=== PATIENT | male | born 1955 | race Caucasian/White ===

== ENCOUNTER 2020-02-11 08:17 | Outpatient (REF) | payer OTHER, SELFPAY ==
[2020-02-11 10:04] LABS: MANUAL DIFF FLAG NO
[2020-02-11 10:22] LABS: Basophils Absolute Auto 0.1 X10*3/uL (0.0-0.2); Basophils Percent Auto 1.1 % (0-2); Eosinophils Absolute Auto 0.2 X10*3/uL (0.0-0.4); Hematocrit 47.5 % (42-52); Hemoglobin 15.6 g/dl (14.0-18.0); Imm Gran Abs Auto 0.01 X10*3/uL (0.00-0.03); Imm Gran Pct Auto 0.2 % (0.0-0.4); Lymphocytes Absolute Auto 1.9 X10*3/uL (1.2-4.9); Lymphocytes Percent Auto 36.8 % (20-40); Mean Corpuscular HGB Conc 32.8 g/dl (31.0-36.0); Mean Corpuscular Hemoglobin 30.3 pg (27.0-33.0); Mean Corpuscular Volume 92.2 fL (80-98); Mean Platelet Volume 10.2 fL (9.4-12.4); Monocytes Absolute Auto 0.6 X10*3/uL (0.1-1.2); Monocytes Percent Auto 10.7 % (2-11); Neutrophils Absolute Auto 2.5 X10*3/uL (2.0-8.3); Neutrophils Percent Auto 47.2 % (45-73); Platelet Count 203 X10*3/uL (160-400); Red Blood Count 5.15 X10*6/uL (4.60-5.80); White Blood Count 5.3 X10*3/uL (4.8-10.8)
[2020-02-11 10:42] LABS: Alanine Aminotransferase 15 U/L (0-40); Albumin Level 4.4 g/dL (3.5-5.0); Alkaline Phosphatase 67 U/L (39-117); Anion Gap 10 (12-20); Aspartate Amino Transferase 20 U/L (5-37); Bilirubin Total 0.7 mg/dL (0.0-1.0); Blood Urea Nitrogen 12 mg/dL (9-16); Carbon Dioxide 32 mmol/L (22-29); Chloride 105 mmol/L (96-108); Cholesterol 125 mg/dL; Estimated Glomerular Filt Rate > 60; Glucose Fasting 92 mg/dL (60-99); HDL Cholesterol 32 mg/dL; LDL Cholesterol Calculated 72 mg/dl; Potassium 4.9 mmol/l (3.3-5.1); Sodium 142 mmol/L (135-145); Total Protein 7.4 g/dL (6.5-8.0); Triglycerides 107 mg/dL
[2020-02-11 10:45] LABS: Calcium 9.3 mg/dL (8.4-10.2)
[2020-02-11 11:06] LABS: TSH reflex Free T4 0.82 mIU/mL (0.32-4.0); Vitamin D 25-OH Total 36.6 ng/mL (>30)
== END 2020-02-11 08:18 | disposition home or self-care (01) ==
LOC: HO.LAB 08:17
PROVIDERS: PCP Internal Medicine; Visit Provider Internal Medicine
DX: K21.9 Gastro-esophageal reflux disease without esophagitis (principal); E78.2 Mixed hyperlipidemia; R73.01 Impaired fasting glucose; M51.36 Other intervertebral disc degeneration, lumbar region; E55.9 Vitamin D deficiency, unspecified; E66.9 Obesity, unspecified
CPT/HCPCS: 36415; 80053; 80061; 82306; 84443; 85025

== ENCOUNTER 2020-07-25 10:02 | Outpatient (REF) | payer MEDICARE, SELFPAY ==
[2020-07-25 11:19] LABS: MANUAL DIFF FLAG NO
[2020-07-25 11:38] LABS: Basophils Percent Auto 0.8 % (0-2); Eosinophils Absolute Auto 0.2 X10*3/uL (0.0-0.4); Eosinophils Percent Auto 3.7 % (0-4); Hematocrit 46.4 % (42-52); Hemoglobin 15.4 g/dl (14.0-18.0); Imm Gran Abs Auto 0.01 X10*3/uL (0.00-0.03); Imm Gran Pct Auto 0.2 % (0.0-0.4); Lymphocytes Absolute Auto 1.4 X10*3/uL (1.2-4.9); Lymphocytes Percent Auto 29.9 % (20-40); Mean Corpuscular HGB Conc 33.2 g/dl (31.0-36.0); Mean Corpuscular Hemoglobin 30.4 pg (27.0-33.0); Mean Corpuscular Volume 91.7 fL (80-98); Mean Platelet Volume 10.1 fL (9.4-12.4); Monocytes Absolute Auto 0.5 X10*3/uL (0.1-1.2); Monocytes Percent Auto 10.2 % (2-11); Neutrophils Absolute Auto 2.7 X10*3/uL (2.0-8.3); Neutrophils Percent Auto 55.2 % (45-73); Platelet Count 190 X10*3/uL (160-400); Red Blood Count 5.06 X10*6/uL (4.60-5.80); Red Cell Distribution Width 12.2 % (11.0-16.0); White Blood Count 4.8 X10*3/uL (4.8-10.8)
[2020-07-25 12:16] LABS: Alanine Aminotransferase 18 U/L (0-40); Albumin Level 4.5 g/dL (3.5-5.0); Alkaline Phosphatase 69 U/L (39-117); Anion Gap 10 (12-20); Aspartate Amino Transferase 24 U/L (5-37); Bilirubin Total 0.6 mg/dL (0.0-1.0); Blood Urea Nitrogen 11 mg/dL (9-16); Calcium 9.2 mg/dL (8.4-10.2); Carbon Dioxide 33 mmol/L (22-29); Chloride 103 mmol/L (96-108); Cholesterol 133 mg/dL; Estimated Glomerular Filt Rate > 60; Glucose Fasting 95 mg/dL (60-99); HDL Cholesterol 35 mg/dL; LDL Cholesterol Calculated 73 mg/dl; Potassium 4.4 mmol/L (3.3-5.1); Sodium 142 mmol/L (135-145); TSH reflex Free T4 0.97 uIU/mL (0.32-4.0); Total Protein 7.8 g/dL (6.5-8.0); Triglycerides 129 mg/dL
[2020-07-25 12:29] LABS: Erythrocyte Sedimentation Rate 2 MM/HR (0-15)
== END 2020-07-25 10:03 | disposition home or self-care (01) ==
LOC: HO.HMGCLDS 10:02
PROVIDERS: PCP Internal Medicine; Visit Provider Internal Medicine
DX: K21.9 Gastro-esophageal reflux disease without esophagitis (principal); M51.36 Other intervertebral disc degeneration, lumbar region; E78.2 Mixed hyperlipidemia; R73.01 Impaired fasting glucose; M50.30 Other cervical disc degeneration, unspecified cervical region; E66.9 Obesity, unspecified
CPT/HCPCS: 36415; 80053; 80061; 84443; 85025; 85652

== ENCOUNTER 2020-07-30 12:14 | Outpatient (REF) | payer MEDICARE, SELFPAY ==
--- NOTE | ~2020-07-30 | XR_ITS ---
EXAMINATION: XR ABDOMEN WITH DECUBITUS VIEWS CLINICAL INDICATION: Constipation COMPARISON: CT 07/09/2019 TECHNIQUE: PA view of the chest. 2 views of the abdomen. FINDINGS: The lungs are well expanded. There is no focal consolidation, edema, or effusion. No pneumothorax. The cardiomediastinal silhouette is within normal limits. No acute osseous abnormality. Nonobstructive bowel gas pattern. No dilated loops of bowel. Gas and stool throughout the colon. No free air on the upright view. No air-fluid levels. Mild degenerative changes of the spine. No suspicious calcifications. XR/XR abdomen w decubitus IMPRESSION: Normal bowel gas pattern. No abnormal stool burden. Clear lungs.
== END 2020-07-30 12:15 | disposition home or self-care (01) ==
LOC: HO.XRAY 12:14
PROVIDERS: PCP Internal Medicine; Visit Provider Internal Medicine
DX: K59.00 Constipation, unspecified (principal); R14.0 Abdominal distension (gaseous)
CPT/HCPCS: 74021

== ENCOUNTER 2020-10-17 10:44 | Outpatient (REF) | payer MEDICARE, SELFPAY ==
[2020-10-17 13:53] LABS: Glucose Urine UA NEG (NEG); Leukocyte Esterase Urine NEG (NEG); Nitrite Urine NEG (NEG); PH 5.5 (5.0-8.0); Specific Gravity - Urine >= 1.030 (1.005-1.025); Urine Blood NEG (NEG); Urine Ketones NEG (NEG); Urine Protein NEG (NEG-TRACE)
[2020-10-17 13:54] LABS: Appearance Urine TURBID; Color Urine YELLOW
[2020-10-17 14:00] LABS: MANUAL DIFF FLAG NO
[2020-10-17 14:12] LABS: Basophils Percent Auto 0.7 % (0-2); Eosinophils Absolute Auto 0.2 X10*3/uL (0.0-0.4); Eosinophils Percent Auto 4.2 % (0-4); Hematocrit 47.1 % (42-52); Hemoglobin 15.7 g/dl (14.0-18.0); Imm Gran Abs Auto 0.01 X10*3/uL (0.00-0.03); Imm Gran Pct Auto 0.2 % (0.0-0.4); Lymphocytes Absolute Auto 1.5 X10*3/uL (1.2-4.9); Mean Corpuscular HGB Conc 33.3 g/dl (31.0-36.0); Mean Corpuscular Hemoglobin 30.4 pg (27.0-33.0); Mean Corpuscular Volume 91.3 fL (80-98); Mean Platelet Volume 10.2 fL (9.4-12.4); Monocytes Absolute Auto 0.5 X10*3/uL (0.1-1.2); Monocytes Percent Auto 10.6 % (2-11); Neutrophils Absolute Auto 2.3 X10*3/uL (2.0-8.3); Neutrophils Percent Auto 51.3 % (45-73); Platelet Count 199 X10*3/uL (160-400); Red Blood Count 5.16 X10*6/uL (4.60-5.80); Red Cell Distribution Width 11.9 % (11.0-16.0); White Blood Count 4.5 X10*3/uL (4.8-10.8)
[2020-10-17 14:22] LABS: Estimated Average Glucose 114 mg/dL; Hemoglobin A1C 151.1638 umol/L; Hemoglobin A1c % 5.6 %
[2020-10-17 14:29] LABS: Alanine Aminotransferase 16 U/L (0-40); Albumin Level 4.5 g/dL (3.5-5.0); Alkaline Phosphatase 72 U/L (39-117); Anion Gap 12 (12-20); Aspartate Amino Transferase 22 U/L (5-37); Bilirubin Total 0.7 mg/dL (0.0-1.0); Blood Urea Nitrogen 15 mg/dL (9-16); Calcium 9.4 mg/dL (8.4-10.2); Carbon Dioxide 28 mmol/L (22-29); Chloride 106 mmol/L (96-108); Cholesterol 130 mg/dL; Estimated Glomerular Filt Rate > 60; Glucose Fasting 94 mg/dL (60-99); HDL Cholesterol 37 mg/dL; LDL Cholesterol Calculated 74 mg/dl; Potassium 4.3 mmol/L (3.3-5.1); Sodium 142 mmol/L (135-145); Total Protein 7.7 g/dL (6.5-8.0); Triglycerides 96 mg/dL
[2020-10-17 14:52] LABS: TSH reflex Free T4 0.61 uIU/mL (0.32-4.0); Vitamin D 25-OH Total 30.4 ng/mL (>30)
== END 2020-10-17 10:45 | disposition home or self-care (01) ==
LOC: HO.HMGCLDS 10:44
PROVIDERS: PCP Internal Medicine; Visit Provider Internal Medicine
DX: R73.01 Impaired fasting glucose (principal); I10 Essential (primary) hypertension; K21.9 Gastro-esophageal reflux disease without esophagitis; K59.00 Constipation, unspecified; E66.9 Obesity, unspecified; E78.2 Mixed hyperlipidemia; R35.0 Frequency of micturition; E55.9 Vitamin D deficiency, unspecified
CPT/HCPCS: 36415; 80053; 80061; 81003; 82306; 83036; 84443; 85025

== ENCOUNTER → 2020-11-25 14:28 | Outpatient (BNVA) | payer OTHER, SELFPAY | PROVIDERS: PCP Internal Medicine; Visit Provider Urology | DX: R10.31 Right lower quadrant pain (principal) | CPT/HCPCS: 99202 ==

== ENCOUNTER → 2020-11-26 11:33 | Outpatient (BNVA) | payer MEDICARE, SELFPAY | PROVIDERS: PCP Internal Medicine; Visit Provider Urology | DX: R10.31 Right lower quadrant pain (principal) | CPT/HCPCS: 99212 ==

== ENCOUNTER → 2020-12-10 13:10 | Outpatient (BNVA) | payer MEDICARE, SELFPAY | PROVIDERS: PCP Internal Medicine; Visit Provider Urology | DX: R10.32 Left lower quadrant pain (principal); R35.0 Frequency of micturition; E55.9 Vitamin D deficiency, unspecified; R73.01 Impaired fasting glucose; Z87.891 Personal history of nicotine dependence | CPT/HCPCS: 51798; 99212 ==

== ENCOUNTER 2021-01-30 09:28 | Outpatient (REF) | payer MEDICARE, SELFPAY ==
[2021-01-30 09:50] LABS: MANUAL DIFF FLAG NO
[2021-01-30 10:50] LABS: Basophils Percent Auto 0.9 % (0-2); Eosinophils Absolute Auto 0.2 X10*3/uL (0.0-0.4); Eosinophils Percent Auto 3.8 % (0-4); Hematocrit 46.8 % (42-52); Hemoglobin 15.5 g/dl (14.0-18.0); Imm Gran Abs Auto 0.01 X10*3/uL (0.00-0.03); Imm Gran Pct Auto 0.2 % (0.0-0.4); Lymphocytes Absolute Auto 1.5 X10*3/uL (1.2-4.9); Lymphocytes Percent Auto 32.1 % (20-40); Mean Corpuscular HGB Conc 33.1 g/dl (31.0-36.0); Mean Corpuscular Hemoglobin 30.3 pg (27.0-33.0); Mean Corpuscular Volume 91.4 fL (80-98); Mean Platelet Volume 9.9 fL (9.4-12.4); Monocytes Absolute Auto 0.5 X10*3/uL (0.1-1.2); Monocytes Percent Auto 11.1 % (2-11); Neutrophils Absolute Auto 2.4 X10*3/uL (2.0-8.3); Neutrophils Percent Auto 51.9 % (45-73); Platelet Count 195 X10*3/uL (160-400); Red Blood Count 5.12 X10*6/uL (4.60-5.80); Red Cell Distribution Width 11.9 % (11.0-16.0); White Blood Count 4.5 X10*3/uL (4.8-10.8)
[2021-01-30 11:04] LABS: Estimated Average Glucose 117 mg/dL; Hemoglobin A1c % 5.7 %
[2021-01-30 11:17] LABS: Alanine Aminotransferase 16 U/L (0-40); Albumin Level 4.3 g/dL (3.5-5.0); Alkaline Phosphatase 63 U/L (39-117); Anion Gap 11 (12-20); Aspartate Amino Transferase 24 U/L (5-37); Bilirubin Total 0.9 mg/dL (0.0-1.0); Blood Urea Nitrogen 8 mg/dL (9-16); Calcium 9.9 mg/dL (8.4-10.2); Carbon Dioxide 32 mmol/L (22-29); Chloride 105 mmol/L (96-108); Cholesterol 125 mg/dL; Estimated Glomerular Filt Rate > 60; Glucose Fasting 100 mg/dL (60-99); HDL Cholesterol 31 mg/dL; LDL Cholesterol Calculated 68 mg/dl; Potassium 4.9 mmol/L (3.3-5.1); Sodium 143 mmol/L (135-145); Total Protein 7.4 g/dL (6.5-8.0); Triglycerides 131 mg/dL
== END 2021-01-30 09:29 | disposition home or self-care (01) ==
LOC: HO.LAB 09:28
PROVIDERS: PCP Internal Medicine; Visit Provider Internal Medicine
DX: Z00.00 Encounter for general adult medical examination without abnormal findings (principal); R73.01 Impaired fasting glucose; K21.9 Gastro-esophageal reflux disease without esophagitis; E78.2 Mixed hyperlipidemia
CPT/HCPCS: 36415; 80053; 80061; 83036; 85025

== ENCOUNTER 2021-02-06 09:52 | Outpatient (REF) | payer OTHER, SELFPAY ==
[2021-02-06 12:29] LABS: Amphetamine Screen Urine Not Detected (Not Detect); Barbiturates, Urine Not Detected (Not Detect); Benzodiazepines Screen Urine Not Detected (Not Detect); Cannabinoid Screen Urine Not Detected (Not Detect); Cocaine Screen Urine Not Detected (Not Detect); Fentanyl, urine Not Detected (Not Detect); Opiate Screen Urine POSITIVE (Not Detect); Phencyclidine Screen Urine Not Detected (Not Detect)
== END 2021-02-06 09:53 | disposition home or self-care (01) ==
LOC: HO.LAB 09:52
PROVIDERS: PCP Internal Medicine; Visit Provider Internal Medicine
DX: F11.90 Opioid use, unspecified, uncomplicated (principal); Z79.899 Other long term (current) drug therapy
CPT/HCPCS: 80307

== ENCOUNTER 2021-05-06 08:03 | Outpatient (REF) | payer OTHER, SELFPAY ==
[2021-05-06 08:24] LABS: MANUAL DIFF FLAG NO
[2021-05-06 08:49] LABS: Basophils Percent Auto 0.6 % (0-2); Eosinophils Absolute Auto 0.2 X10*3/uL (0.0-0.4); Eosinophils Percent Auto 3.9 % (0-4); Hematocrit 46.7 % (42.0-52.0); Hemoglobin 15.5 g/dl (14.0-18.0); Imm Gran Abs Auto 0.01 X10*3/uL (0.00-0.03); Imm Gran Pct Auto 0.2 % (0.0-0.4); Lymphocytes Absolute Auto 1.7 X10*3/uL (1.2-4.9); Lymphocytes Percent Auto 33.1 % (20-40); Mean Corpuscular HGB Conc 33.2 g/dl (31.0-36.0); Mean Corpuscular Hemoglobin 30.3 pg (27.0-33.0); Mean Corpuscular Volume 91.2 fL (80.0-98.0); Mean Platelet Volume 9.7 fL (9.4-12.4); Monocytes Absolute Auto 0.5 X10*3/uL (0.1-1.2); Monocytes Percent Auto 10.5 % (2-11); Neutrophils Absolute Auto 2.6 x10*3/uL (2.0-8.3); Neutrophils Percent Auto 51.7 % (45-73); Platelet Count 190 X10*3/uL (160-400); Red Blood Count 5.12 X10*6/uL (4.60-5.80); Red Cell Distribution Width 11.9 % (11.0-16.0); White Blood Count 5.1 X10*3/uL (4.8-10.8)
[2021-05-06 09:03] LABS: Estimated Average Glucose 117 mg/dL; Hemoglobin A1c % 5.7 %
[2021-05-06 09:27] LABS: Alanine Aminotransferase 17 U/L (0-40); Albumin Level 4.3 g/dL (3.5-5.0); Alkaline Phosphatase 63 U/L (39-117); Anion Gap 9 (12-20); Aspartate Amino Transferase 20 U/L (5-37); Bilirubin Total 0.9 mg/dL (0.0-1.0); Blood Urea Nitrogen 10 mg/dL (9-16); Calcium 9.6 mg/dL (8.4-10.2); Carbon Dioxide 32 mmol/L (22-29); Chloride 107 mmol/L (96-108); Cholesterol 118 mg/dL; Estimated Glomerular Filt Rate > 60; Glucose Fasting 100 mg/dL (60-99); HDL Cholesterol 35 mg/dL; LDL Cholesterol Calculated 65 mg/dl; Potassium 4.4 mmol/L (3.3-5.1); Sodium 144 mmol/L (135-145); Total Protein 7.5 g/dL (6.5-8.0); Triglycerides 90 mg/dL
[2021-05-06 09:38] LABS: TSH reflex Free T4 0.98 uIU/mL (0.32-4.0); Vitamin D 25-OH Total 31.5 ng/mL (>30)
[2021-05-06 10:46] LABS: Appearance Urine CLEAR; Color Urine YELLOW; Glucose Urine UA NEG (NEG); Leukocyte Esterase Urine NEG (NEG); Nitrite Urine NEG (NEG); PH 5.5 (5.0-8.0); Specific Gravity - Urine 1.025 (1.005-1.025); Urine Blood NEG (NEG); Urine Ketones NEG (NEG); Urine Protein NEG (NEG-TRACE)
== END 2021-05-06 08:04 | disposition home or self-care (01) ==
LOC: HO.LAB 08:03
PROVIDERS: PCP Internal Medicine; Visit Provider Internal Medicine
DX: I10 Essential (primary) hypertension (principal); E55.9 Vitamin D deficiency, unspecified; R73.01 Impaired fasting glucose; E78.00 Pure hypercholesterolemia, unspecified
CPT/HCPCS: 36415; 80053; 80061; 81003; 82306; 83036; 84443; 85025

== ENCOUNTER → 2021-06-17 09:26 | Outpatient (BNVA) | payer OTHER, SELFPAY | PROVIDERS: PCP Internal Medicine; Visit Provider Urology | DX: R10.32 Left lower quadrant pain (principal) | CPT/HCPCS: 51798; 99212 ==

== ENCOUNTER 2021-10-06 07:33 | Outpatient (REF) | payer OTHER, SELFPAY ==
[2021-10-06 07:49] LABS: MANUAL DIFF FLAG NO
[2021-10-06 08:10] LABS: Basophils Absolute Auto 0.1 X10*3/uL (0.0-0.2); Eosinophils Absolute Auto 0.1 X10*3/uL (0.0-0.4); Eosinophils Percent Auto 2.8 % (0-4); Hematocrit 48.1 % (42.0-52.0); Hemoglobin 15.7 g/dl (14.0-18.0); Imm Gran Abs Auto 0.01 X10*3/uL (0.00-0.03); Imm Gran Pct Auto 0.2 % (0.0-0.4); Lymphocytes Absolute Auto 1.6 X10*3/uL (1.2-4.9); Mean Corpuscular HGB Conc 32.6 g/dl (31.0-36.0); Mean Corpuscular Hemoglobin 29.8 pg (27.0-33.0); Mean Corpuscular Volume 91.4 fL (80.0-98.0); Mean Platelet Volume 9.4 fL (9.4-12.4); Monocytes Absolute Auto 0.5 X10*3/uL (0.1-1.2); Monocytes Percent Auto 10.5 % (2-11); Neutrophils Absolute Auto 2.6 x10*3/uL (2.0-8.3); Neutrophils Percent Auto 53.5 % (45-73); Platelet Count 204 X10*3/uL (160-400); Red Blood Count 5.26 X10*6/uL (4.60-5.80); Red Cell Distribution Width 12.1 % (11.0-16.0); White Blood Count 4.9 X10*3/uL (4.8-10.8)
[2021-10-06 08:38] LABS: Alanine Aminotransferase 19 U/L (0-40); Albumin Level 4.5 g/dL (3.5-5.0); Alkaline Phosphatase 73 U/L (39-117); Anion Gap 10 (12-20); Aspartate Amino Transferase 22 U/L (5-37); Bilirubin Total 0.8 mg/dL (0.0-1.0); Blood Urea Nitrogen 11 mg/dL (9-16); Calcium 9.3 mg/dL (8.4-10.2); Carbon Dioxide 32 mmol/L (22-29); Chloride 105 mmol/L (96-108); Cholesterol 134 mg/dL; Estimated Glomerular Filt Rate > 60; Glucose Fasting 101 mg/dL (60-99); HDL Cholesterol 35 mg/dL; LDL Cholesterol Calculated 80 mg/dl; Potassium 4.8 mmol/L (3.3-5.1); Sodium 142 mmol/L (135-145); Total Protein 7.6 g/dL (6.5-8.0); Triglycerides 97 mg/dL
[2021-10-06 08:53] LABS: Estimated Average Glucose 114 mg/dL; Hemoglobin A1c % 5.6 %
[2021-10-06 09:03] LABS: TSH reflex Free T4 0.76 uIU/mL (0.32-4.0); Vitamin D 25-OH Total 36.4 ng/mL (>30)
[2021-10-06 09:13] LABS: Appearance Urine HAZY; Color Urine YELLOW; Glucose Urine UA NEG (NEG); Leukocyte Esterase Urine NEG (NEG); Nitrite Urine NEG (NEG); PH 5.5 (5.0-8.0); Specific Gravity - Urine >= 1.030 (1.005-1.025); Urine Blood NEG (NEG); Urine Ketones NEG (NEG); Urine Protein NEG (NEG-TRACE)
== END 2021-10-06 07:34 | disposition home or self-care (01) ==
LOC: HO.LAB 07:33
PROVIDERS: PCP Internal Medicine; Visit Provider Internal Medicine
DX: E55.9 Vitamin D deficiency, unspecified (principal); E78.00 Pure hypercholesterolemia, unspecified; R73.01 Impaired fasting glucose; I10 Essential (primary) hypertension
CPT/HCPCS: 36415; 80053; 80061; 81003; 82306; 83036; 84443; 85025

== ENCOUNTER 2022-01-30 08:59 | Outpatient (REF) | payer OTHER, SELFPAY ==
[2022-01-30 09:21] LABS: MANUAL DIFF FLAG NO
[2022-01-30 09:31] LABS: Basophils Absolute Auto 0.1 X10*3/uL (0.0-0.2); Eosinophils Absolute Auto 0.2 X10*3/uL (0.0-0.4); Eosinophils Percent Auto 4.7 % (0-4); Hematocrit 45.6 % (42.0-52.0); Hemoglobin 15.3 g/dl (14.0-18.0); Imm Gran Abs Auto 0.01 X10*3/uL (0.00-0.03); Imm Gran Pct Auto 0.2 % (0.0-0.4); Lymphocytes Absolute Auto 1.7 X10*3/uL (1.2-4.9); Lymphocytes Percent Auto 33.2 % (20-40); Mean Corpuscular HGB Conc 33.6 g/dl (31.0-36.0); Mean Corpuscular Hemoglobin 30.2 pg (27.0-33.0); Mean Corpuscular Volume 89.9 fL (80.0-98.0); Mean Platelet Volume 9.5 fL (9.4-12.4); Monocytes Absolute Auto 0.6 X10*3/uL (0.1-1.2); Monocytes Percent Auto 12.4 % (2-11); Neutrophils Absolute Auto 2.5 x10*3/uL (2.0-8.3); Neutrophils Percent Auto 48.5 % (45-73); Platelet Count 189 X10*3/uL (160-400); Red Blood Count 5.07 X10*6/uL (4.60-5.80); Red Cell Distribution Width 11.9 % (11.0-16.0); White Blood Count 5.1 X10*3/uL (4.8-10.8)
[2022-01-30 10:01] LABS: Alanine Aminotransferase 16 U/L (0-40); Albumin Level 4.5 g/dL (3.5-5.0); Alkaline Phosphatase 71 U/L (39-117); Anion Gap 13 (12-20); Aspartate Amino Transferase 23 U/L (5-37); Bilirubin Total 0.8 mg/dL (0.0-1.0); Blood Urea Nitrogen 14 mg/dL (9-16); Calcium 9.6 mg/dL (8.4-10.2); Carbon Dioxide 31 mmol/L (22-29); Chloride 105 mmol/L (96-108); Cholesterol 118 mg/dL; Estimated Glomerular Filt Rate > 60; Glucose Fasting 106 mg/dL (60-99); HDL Cholesterol 32 mg/dL; LDL Cholesterol Calculated 69 mg/dl; Potassium 4.9 mmol/L (3.3-5.1); Sodium 144 mmol/L (135-145); Total Protein 7.5 g/dL (6.5-8.0); Triglycerides 87 mg/dL
[2022-01-30 10:23] LABS: TSH reflex Free T4 0.96 uIU/mL (0.32-4.0); Vitamin D 25-OH Total 36.8 ng/mL (>30)
[2022-01-30 10:25] LABS: Erythrocyte Sedimentation Rate 2 MM/HR (0-15)
[2022-01-30 11:35] LABS: Appearance Urine Clear; Color Urine Yellow; Glucose Urine UA Negative (Negative); Leukocyte Esterase Urine Negative (Negative); Nitrite Urine Negative (Negative); Urine Blood Negative (Negative); Urine Ketones Negative (Negative); Urine Protein Negative (Neg-Trace)
== END 2022-01-30 09:00 | disposition home or self-care (01) ==
LOC: HO.LAB 08:59
PROVIDERS: PCP Internal Medicine; Visit Provider Internal Medicine
DX: I10 Essential (primary) hypertension (principal); E78.00 Pure hypercholesterolemia, unspecified; E55.9 Vitamin D deficiency, unspecified; M17.0 Bilateral primary osteoarthritis of knee
CPT/HCPCS: 36415; 80053; 80061; 81003; 82306; 84443; 85025; 85652

== ENCOUNTER 2022-04-20 08:05 | Outpatient (REF) | payer OTHER, SELFPAY ==
[2022-04-20 08:16] LABS: MANUAL DIFF FLAG NO
[2022-04-20 08:41] LABS: Basophils Absolute Auto 0.1 X10*3/uL (0.0-0.2); Basophils Percent Auto 1.2 % (0-2); Eosinophils Absolute Auto 0.2 X10*3/uL (0.0-0.4); Eosinophils Percent Auto 3.9 % (0-4); Hematocrit 46.9 % (42.0-52.0); Hemoglobin 15.7 g/dl (14.0-18.0); Imm Gran Abs Auto 0.01 X10*3/uL (0.00-0.03); Imm Gran Pct Auto 0.2 % (0.0-0.4); Lymphocytes Absolute Auto 1.9 X10*3/uL (1.2-4.9); Lymphocytes Percent Auto 36.2 % (20-40); Mean Corpuscular HGB Conc 33.5 g/dl (31.0-36.0); Mean Corpuscular Hemoglobin 30.1 pg (27.0-33.0); Mean Corpuscular Volume 89.8 fL (80.0-98.0); Mean Platelet Volume 9.7 fL (9.4-12.4); Monocytes Absolute Auto 0.6 X10*3/uL (0.1-1.2); Neutrophils Absolute Auto 2.4 x10*3/uL (2.0-8.3); Neutrophils Percent Auto 46.5 % (45-73); Platelet Count 194 X10*3/uL (160-400); Red Blood Count 5.22 X10*6/uL (4.60-5.80); Red Cell Distribution Width 11.9 % (11.0-16.0); White Blood Count 5.2 X10*3/uL (4.8-10.8)
[2022-04-20 08:47] LABS: Estimated Average Glucose 105 mg/dL; Hemoglobin A1c % 5.3 %
[2022-04-20 09:15] LABS: Appearance Urine Clear; Color Urine Dark Yellow; Glucose Urine UA Negative (Negative); Leukocyte Esterase Urine Negative (Negative); Nitrite Urine Negative (Negative); Specific Gravity - Urine 1.025 (1.005-1.025); Urine Blood Negative (Negative); Urine Ketones Trace mg/dL (Negative); Urine Protein Trace mg/dL (Neg-Trace)
[2022-04-20 09:23] LABS: Alanine Aminotransferase 20 U/L (0-40); Albumin Level 4.5 g/dL (3.5-5.0); Alkaline Phosphatase 72 U/L (39-117); Anion Gap 11 (12-20); Aspartate Amino Transferase 24 U/L (5-37); Blood Urea Nitrogen 9 mg/dL (9-16); Calcium 9.6 mg/dL (8.4-10.2); Carbon Dioxide 31 mmol/L (22-29); Chloride 105 mmol/L (96-108); Cholesterol 124 mg/dL; Estimated Glomerular Filt Rate > 60; Glucose Fasting 103 mg/dL (60-99); HDL Cholesterol 35 mg/dL; LDL Cholesterol Calculated 70 mg/dl; Potassium 4.6 mmol/L (3.3-5.1); Sodium 142 mmol/L (135-145); TSH reflex Free T4 1.89 uIU/mL (0.32-4.0); Total Protein 7.5 g/dL (6.5-8.0); Triglycerides 95 mg/dL; Vitamin D 25-OH Total 35.6 ng/mL (>30)
== END 2022-04-20 08:06 | disposition home or self-care (01) ==
LOC: HO.LAB 08:05
PROVIDERS: PCP Internal Medicine; Visit Provider Internal Medicine
DX: R30.0 Dysuria (principal); I10 Essential (primary) hypertension; E55.9 Vitamin D deficiency, unspecified; R73.01 Impaired fasting glucose; E78.00 Pure hypercholesterolemia, unspecified
CPT/HCPCS: 36415; 80053; 80061; 81003; 82306; 83036; 84443; 85025

== ENCOUNTER 2022-07-22 07:50 | Outpatient (REF) | payer OTHER, SELFPAY ==
[2022-07-22 08:00] LABS: MANUAL DIFF FLAG NO
[2022-07-22 08:17] LABS: Basophils Absolute Auto 0.1 X10*3/uL (0.0-0.2); Basophils Percent Auto 1.1 % (0-2); Eosinophils Absolute Auto 0.2 X10*3/uL (0.0-0.4); Eosinophils Percent Auto 3.9 % (0-4); Hematocrit 48.2 % (42.0-52.0); Hemoglobin 16.1 g/dl (14.0-18.0); Imm Gran Abs Auto 0.01 X10*3/uL (0.00-0.03); Imm Gran Pct Auto 0.2 % (0.0-0.4); Lymphocytes Absolute Auto 2.2 X10*3/uL (1.2-4.9); Lymphocytes Percent Auto 40.9 % (20-40); Mean Corpuscular HGB Conc 33.4 g/dl (31.0-36.0); Mean Corpuscular Hemoglobin 29.9 pg (27.0-33.0); Mean Corpuscular Volume 89.6 fL (80.0-98.0); Mean Platelet Volume 9.4 fL (9.4-12.4); Monocytes Absolute Auto 0.6 X10*3/uL (0.1-1.2); Monocytes Percent Auto 11.1 % (2-11); Neutrophils Absolute Auto 2.3 x10*3/uL (2.0-8.3); Neutrophils Percent Auto 42.8 % (45-73); Platelet Count 200 X10*3/uL (160-400); Red Blood Count 5.38 X10*6/uL (4.60-5.80); Red Cell Distribution Width 11.9 % (11.0-16.0); White Blood Count 5.3 X10*3/uL (4.8-10.8)
[2022-07-22 08:25] LABS: Estimated Average Glucose 117 mg/dL; Hemoglobin A1c % 5.7 %
[2022-07-22 08:48] LABS: Alanine Aminotransferase 17 U/L (0-40); Albumin Level 4.5 g/dL (3.5-5.0); Alkaline Phosphatase 74 U/L (39-117); Anion Gap 12 (12-20); Aspartate Amino Transferase 25 U/L (5-37); Bilirubin Total 1.3 mg/dL (0.0-1.0); Blood Urea Nitrogen 8 mg/dL (9-16); Calcium 9.6 mg/dL (8.4-10.2); Carbon Dioxide 32 mmol/L (22-29); Chloride 104 mmol/L (96-108); Cholesterol 123 mg/dL; Estimated Glomerular Filt Rate > 60; Glucose Fasting 105 mg/dL (60-99); HDL Cholesterol 34 mg/dL; LDL Cholesterol Calculated 72 mg/dl; Potassium 4.5 mmol/L (3.3-5.1); Sodium 143 mmol/L (135-145); Total Protein 7.4 g/dL (6.5-8.0); Triglycerides 85 mg/dL
[2022-07-22 09:03] LABS: Vitamin D 25-OH Total 39.6 ng/mL (>30)
[2022-07-22 09:33] LABS: Appearance Urine Clear; Color Urine Dark Yellow; Glucose Urine UA Negative (Negative); Leukocyte Esterase Urine Negative (Negative); Nitrite Urine Negative (Negative); PH 5.5 (5.0-9.0); Urine Blood Negative (Negative); Urine Ketones Negative (Negative); Urine Protein Trace mg/dL (Neg-Trace)
== END 2022-07-22 07:51 | disposition home or self-care (01) ==
LOC: HO.LAB 07:50
PROVIDERS: PCP Internal Medicine; Visit Provider Internal Medicine
DX: I10 Essential (primary) hypertension (principal); E55.9 Vitamin D deficiency, unspecified; R30.0 Dysuria; E78.00 Pure hypercholesterolemia, unspecified; R73.01 Impaired fasting glucose
CPT/HCPCS: 36415; 80053; 80061; 81003; 82306; 83036; 84443; 85025

== ENCOUNTER 2022-11-19 07:57 | Outpatient (REF) | payer OTHER, SELFPAY ==
[2022-11-19 08:21] LABS: MANUAL DIFF FLAG NO
[2022-11-19 08:59] LABS: Basophils Absolute Auto 0.1 X10*3/uL (0.0-0.2); Eosinophils Absolute Auto 0.2 X10*3/uL (0.0-0.4); Eosinophils Percent Auto 3.9 % (0-4); Hematocrit 47.9 % (42.0-52.0); Hemoglobin 15.8 g/dl (14.0-18.0); Imm Gran Abs Auto 0.01 X10*3/uL (0.00-0.03); Imm Gran Pct Auto 0.2 % (0.0-0.4); Lymphocytes Absolute Auto 1.9 X10*3/uL (1.2-4.9); Lymphocytes Percent Auto 37.4 % (20-40); Mean Corpuscular Hemoglobin 30.1 pg (27.0-33.0); Mean Corpuscular Volume 91.2 fL (80.0-98.0); Mean Platelet Volume 9.7 fL (9.4-12.4); Monocytes Absolute Auto 0.6 X10*3/uL (0.1-1.2); Monocytes Percent Auto 12.4 % (2-11); Neutrophils Absolute Auto 2.3 x10*3/uL (2.0-8.3); Neutrophils Percent Auto 45.1 % (45-73); Platelet Count 191 X10*3/uL (160-400); Red Blood Count 5.25 X10*6/uL (4.60-5.80); Red Cell Distribution Width 11.9 % (11.0-16.0); White Blood Count 5.2 X10*3/uL (4.8-10.8)
[2022-11-19 09:06] LABS: Estimated Average Glucose 108 mg/dL; Hemoglobin A1c % 5.4 %
[2022-11-19 09:30] LABS: Alanine Aminotransferase 42 U/L (0-40); Albumin Level 4.3 g/dL (3.5-5.0); Alkaline Phosphatase 77 U/L (39-117); Anion Gap 16 (12-20); Aspartate Amino Transferase 46 U/L (5-37); Blood Urea Nitrogen 11 mg/dL (9-16); Calcium 9.6 mg/dL (8.4-10.2); Carbon Dioxide 27 mmol/L (22-29); Chloride 103 mmol/L (96-108); Cholesterol 115 mg/dL; Estimated Glomerular Filt Rate > 60; Glucose Fasting 93 mg/dL (60-99); HDL Cholesterol 29 mg/dL; LDL Cholesterol Calculated 64 mg/dl; Potassium 4.3 mmol/L (3.3-5.1); Sodium 142 mmol/L (135-145); Total Protein 7.7 g/dL (6.5-8.0); Triglycerides 110 mg/dL
[2022-11-19 09:46] LABS: Appearance Urine Clear; Color Urine Dark Yellow; Glucose Urine UA Negative (Negative); Leukocyte Esterase Urine Negative (Negative); Nitrite Urine Negative (Negative); PH 5.5 (5.0-9.0); Specific Gravity - Urine 1.025 (1.005-1.025); Urine Blood Negative (Negative); Urine Ketones Trace mg/dL (Negative); Urine Protein Negative (Neg-Trace)
[2022-11-19 09:54] LABS: Vitamin D 25-OH Total 43.3 ng/mL (>30)
== END 2022-11-19 07:58 | disposition home or self-care (01) ==
LOC: HO.LAB 07:57
PROVIDERS: PCP Internal Medicine; Visit Provider Internal Medicine
DX: R30.0 Dysuria (principal); E78.00 Pure hypercholesterolemia, unspecified; I10 Essential (primary) hypertension; E55.9 Vitamin D deficiency, unspecified; R73.01 Impaired fasting glucose
CPT/HCPCS: 36415; 80053; 80061; 81003; 82306; 83036; 85025

== ENCOUNTER 2022-11-26 09:56 | Outpatient (AMB) | payer OTHER, SELFPAY ==
[2022-11-26 10:02] VITALS: BP 130/78; PULSE 71; O2SAT 93; BMI 35.1
--- NOTE | 2022-11-26 10:02 | A.OFFPC_ITS ---
Vital Signs 11/26/22 10:02 Height 5 ft 8 in Weight 231 lb BMI 35.1 BP 130/78 Blood Pressure Location Lt brachial Position Sitting Pulse 71 Pulse Source Pulse Oximeter Pulse Oximetry (%) 93 Oxygen Delivery Method Room Air Intake Visit Reasons: hyperlipidemia, cervical DDD, OA, lumbar DDD, GERD Regulatory Specialist Required: No Accompanied by: Self / Same As Patient Allergies No Known Allergies Allergy (Verified 11/26/22 10:35) Medication List - Last Reconciled 11/26/22 by Clifton Ray MD cholecalciferol (vitamin D3) 25 mcg PO DAILY gabapentin 300 mg PO TID [LIGHTWEIGHT ELECTRIC MOTORIZED SCOOTER As directed] niacin 500 mg PO BEDTIME oxycodone-acetaminophen 5-325 mg 1 tab PO Q6H PRN 28 days simvastatin 20 mg PO BEDTIME Tobacco use date assessed: 11/26/22 Fall risk assessment: No Falls in past year Last assessed Fall Risk: 11/26/22 Dental Screening Dental Screen Date: 11/26/22 Did you have a dental visit in the last 12 months?: No Did you have a dental problem in the last 6 months where you did not have access to dental care?: No Was dental information given to patient?: No HPI hyperlipidemia, cervical DDD, OA, lumbar DDD, GERD HPI Details Patient comes in today for his follow up visit Relates that he was passing out blood with his stool on and off for a couple of days last week His daughter states that some blood was also running down his leg while he was in the shower then; this gradually slowed down to some spotting the next day and eventually cleared up with no recurrence since States that he feels okay otherwise He denies any headaches or dizziness Denies any chest pains, no SOB No nausea/vomiting, no abdominal pain No change in bowel habits noted States that his neck pain, low back pain and joint pains remain adequately controlled on his current Rx but he still has recurrent deep inguinal/pelvic/groin pain and discomfort Has been seeing Dr. Steinberg for this and was receiving some inguinal injections for this but he developed significant bruising and genital swelling after his last injection a few months ago and does not want to return to see Dr. Steinberg Is requesting for a referral to see [facility] instead His daughter would also like for him to get a referral to podiatry as he has a few toenails that are thick and deformed and he has been having a hard time now cutting and trimming his toenails on his own Patient also has a recurrent itchy rash under his abdominal folds for a while now - has tried applying some OTC antifungal cream lately with little relief Had his follow up labs done last week - to discuss his results [facility] Medical History Constipation Degenerative arthritis of knee, bilateral Degenerative disc disease, cervical GERD without esophagitis Impaired fasting glucose Lumbar degenerative disc disease Mixed hyperlipidemia Obesity (BMI 30-39.9) Urinary frequency Vitamin D deficiency Surgical History History of colonoscopy History of knee replacement procedure of left knee History of knee replacement procedure of right knee Family History Father Cancer Mother Diabetes Social History Housing: House Alcohol intake: never Patient Tobacco Use Status: Former Tobacco user e-Cigarette/Vaping Use: Never Used Second Hand Smoke Exposure: Yes service: No Current occupational status: disabled Cognitive needs: Yes (cane) Hearing needs: No Vision needs: Yes Questionnaire PHQ-9 Over the last 2 weeks, how often have you been bothered by any of the following problems? 1. Little interest or pleasure in doing things: not at all 2. Feeling down, depressed, or hopeless: not at all 3. Trouble falling or staying asleep, or sleeping too much: not at all 4. Feeling tired or having little energy: not at all 5. Poor appetite or overeating: not at all 6. Feeling bad about yourself - or that you are a failure or have let yourself or your family down: not at all 7. Trouble concentrating on things, such as reading the newspaper or watching television: not at all 8. Moving or speaking so slowly that other people could have noticed. Or the opposite - being so fidgety or restless that you have been moving around a lot more than usual: not at all 9. Thoughts that you would be better off or of hurting yourself in some way: not at all Total score: 0 Depression Screening Interpretation: Negative [id number] - PHQ-9 Billing: Yes Source: Developed by Drs. Wally Payan, Kian Champion and colleagues, with an educational rolly from [employer]. Thrive Questionnaire Date Thrive assessed: 11/26/22 I am a: Patient What is your living situation today?: I have a steady place to live Within the past 12 months, did the food you bought not last and you didn't have the money to get more?: Never true Within the past 12 months, did you worry whether your food would run out before you got money to buy more?: Never true Do you have trouble paying for medicines?: No Do you have trouble getting transportation to medical appointments?: No Do you have trouble paying your heating and electricity bill?: No Do you have trouble taking care of your child, family member or friend?: No Do you have trouble with day-to-day activities such as bathing, preparing meals, shopping, managing finances, etc.?: No Are you currently unemployed and looking for a job?: No Are you interested in more education?: No Please select the resources that you would like help with: None Currently or been in a relationship where the following occur: no concerns reported AUDIT C Alcohol Use Questionnaire (AUDIT-C) 1. How often do you have a drink containing alcohol?: Never 3. How often do you have six or more drinks on one occasion?: Never Total Score: 0 Score Reviewed/Action Taken: Yes PHYLLIS-7 AMB Questionnaire PHYLLIS-7 Date PHYLLIS - 7 assessed: 11/26/22 Feeling nervous, anxious, or on edge: 0 = Not at all Not being able to stop or control worryin = Not at all Worrying too much about different things: 0 = Not at all Trouble relaxin = Not at all Being so restless that it is hard to sit still: 0 = Not at all Becoming easily annoyed or irritable: 0 = Not at all Feeling afraid as if something awful might happen: 0 = Not at all Total PHYLLIS-7 score (0-4 normal; 5-9 mild; 10-14 moderate; 15-21 severe): 0 Source: Developed by Adrianne Cook Kurt Kroenke and colleagues, with an educational rolly from [employer]. Review of Systems Const Denies chills, Reports fatigue, Denies fever(s) and Denies headache(s) ENT Denies dysphagia, Denies dizziness, Denies otalgia, Denies headache(s), Reports neck pain (chronic), Denies odynophagia and Denies sore throat Card Denies chest pain, Denies palpitations and Denies dyspnea Resp Denies cough, Denies dyspnea and Denies wheezing GI Reports abdominal pain (over the inguinal area - chronic), Reports hematochezia (on and off x 2 days last week - see HPI), Reports constipation (on and off), Denies dysphagia, Denies heartburn, Denies diarrhea, Denies nausea, Denies odynophagia and Denies vomiting Details: (+) bilateral inguinal pain Denies hematuria, Reports difficulty urinating (at times), Reports dysuria (at times, over the inguinal and suprapubic areas), Reports urinary frequency and Reports urinary incontinence (occasionally) Musc Reports back pain (over the lumbar spine - chronic), Reports arthralgias (both knees) and Reports neck pain (chronic) Skin/Breast Details: (+) redness and irritation / rash under the abdominal skin folds on both sides; (+) thickened and disfigured nails on a few toes on both feet Neuro Denies dizziness and Denies headache(s) Endo Reports fatigue and Denies palpitations Aller/Immun Denies wheezing Physical exam (Primary Care) Vital Signs: Last Vital Signs Pulse 71 11/26/22 10:02 BP 130/78 11/26/22 10:02 Pulse Ox 93 11/26/22 10:02 Oxygen Delivery Method Room Air 11/26/22 10:02 BMI result Body Mass Index 35.1 Tobacco/Smoking Status: Tobacco use Status Tobacco use date assessed 11/26/22 11/26/22 10:09 Patient Tobacco Use Status Former Tobacco user 11/26/22 10:09 e-Cigarette/Vaping Use Never Used 11/26/22 10:09 PHQ-9: PHQ-9 Score PHQ-9: Total score 0 11/26/22 10:39 Depression Screening Interpretation: Negative Thrive Assessment: Date of Thrive Assessment Date Thrive assessed 11/26/22 11/26/22 10:09 Currently or been in a relationship where the following occur: no concerns reported Const General: no acute distress and alert HENMT Ears: TM's normal bilaterally and EAC's normal Throat: Yes posterior oropharynx normal and Yes tonsils normal (no TP congestion noted) Neck Neck: Yes no lymphadenopathy Resp Auscultation: clear to auscultation bilaterally, no rales and no wheezes Cardio Rate: regular rate Rhythm: regular rhythm Heart sounds: no murmurs GI Palpation (GI): Soft to palpation, Tenderness to palpation present (GI) (bilateral inguinal areas) with no rebound tenderness, no guarding, not rigid and no hernias Auscultation: normal bowel sounds Other: (+) bilateral inguinal tenderness, right > left Back/Spine/Pelvis Cervical Spine: Cervical spine tenderness Thoracic/Lumbar Spine: lumbar spinal tenderness (chronic) Skin Other: (+) patchy erythematous rash noted under the abdominal skin folds bilaterally; (+) onycholysis over a few toenails on the feet bilaterally Extrem General: Yes no clubbing, cyanosis or edema Results Reviewed Results Reviewed: Laboratory Tests 11/19/22 11/19/22 11/19/22 08:10 08:19 08:19 WBC 5.2 Hgb 15.8 Hct 47.9 Plt Count 191 Sodium 142 Potassium 4.3 Creatinine 0.92 Estimated GFR > 60 Fasting Glucose 93 Hemoglobin A1c % Calcium 9.6 AST 46 H ALT 42 H Triglycerides 110 Cholesterol 115 LDL Cholesterol, Calc 64 HDL Cholesterol 29 25-OH Vitamin D Total 43.3 Ur Specific [place] 1.025 Urine Protein Negative Urine Glucose (UA) Negative Urine Blood Negative 11/19/22 08:19 WBC Hgb Hct Plt Count Sodium Potassium Creatinine Estimated GFR Fasting Glucose Hemoglobin A1c % 5.4 Calcium AST ALT Triglycerides Cholesterol LDL Cholesterol, Calc HDL Cholesterol 25-OH Vitamin D Total Ur Specific [place] Urine Protein Urine Glucose (UA) Urine Blood Assessment and Plan Assessment & Plan (1) Mixed hyperlipidemia: Code(s): E78.2 - Mixed hyperlipidemia Plan: Results of his labs done last week reviewed and discussed with patient - his total and LDL cholesterol remain at goal Reinforced low cholesterol diet Continue Simvastatin 20 mg QD and Niaspan ER 500 mg QHS Will recheck his labs in 3 months for follow up (2) Impaired fasting glucose: Code(s): R73.01 - Impaired fasting glucose Plan: HgbA1c remains normal at 5.4% on his labs done last week; was previously at 5.7% a few months ago Reinforced low calorie diet/exercise as tolerated (3) Elevated LFTs: Code(s): R79.89 - Other specified abnormal findings of blood chemistry Plan: Mild - seen on his recent labs done last week Advised that this is most likely related to his weight Will recheck his LFTs in 3 months for follow up and will continue to monitor these regularly for now (4) Degenerative disc disease, cervical: Comment: Cervical spine MRI in October 2016 revealed a slight increase in his cervical spine spondylosis (multilevel) Repeat cervical spine MRI on 11/03/2018 showed stable appearing multilevel cervical spondylosis; multilevel degenerative changes resulting in varying degrees of moderate to severe foraminal stenosis throughout the cervical spine but there is no severe central canal stenosis. There is bone marrow edema within the left C2 and C3 facets most likely degenerative or inflammatory Code(s): M50.30 - Other cervical disc degeneration, unspecified cervical region Plan: Continue Oxycodone-Acetaminophen 5-325 mg every 6 hours as needed Follow up with neurosurgery (Dr. Keller) as scheduled - was reportedly presented with the option of either repeat cortisone injection (which patient declined) or ACDF, especially if patient's neck symptoms get worse; patient has not yet decided on which option he wants to go with at this time (5) Lumbar degenerative disc disease: Comment: Repeat lumbar spine MRI done on 11/03/2018 revealed (+) mild to moderate multilevel chronic spondylosis of the lumbar spine without associated marked central or foraminal stenosis or evidence of direct nerve root impingement Code(s): M51.36 - Other intervertebral disc degeneration, lumbar region Plan: Reinforced activity and weight-lifting restrictions Continue Gabapentin 300 mg TID and Cyclobenzaprine 10 mg TID PRN (6) Degenerative arthritis of knee, bilateral: Comment: S/P bilateral knee arthroplasty Code(s): M17.0 - Bilateral primary osteoarthritis of knee Qualifiers: Osteoarthritis type: unspecified Qualified Code(s): M17.0 - Bilateral primary osteoarthritis of knee Plan: S/P bilateral knee arthroplasty - has been doing well since surgery Follow up with orthopedic as scheduled (7) GERD without esophagitis: Code(s): K21.9 - Gastro-esophageal reflux disease without esophagitis Plan: Dietary restrictions reinforced Continue Omeprazole 20 mg QD (8) Rectal bleeding: Code(s): K62.5 - Hemorrhage of anus and rectum Plan: Patient currently no longer has any rectal bleeding - states that his bleeding episodes last week lasted only a couple of days Are most likely due to hemorroids - has internal hemorrhoids noted on his last colonoscopy with Dr. Garcia in 2019 Will refer him back to Dr. Garcia for further evaluation and management (9) Vitamin D deficiency: Code(s): E55.9 - Vitamin D deficiency, unspecified Plan: Corrected; continue Vitamin D3 1000 units QD (10) Deep inguinal pain: Comment: Diagnosed as bilateral Inguinal Disruption Code(s): R10.30 - Lower abdominal pain, unspecified Plan: Has been receiving trigger point injections over the inguinal areas from Dr. Steinberg over the past few months with little relief and was referred for pelvic girdle assessment Is requesting for referral to [facility] in [place] instead as patient does not want to go back to see Dr. Steinberg - referral done as requested (11) Urinary frequency: Code(s): R35.0 - Frequency of micturition Plan: Will also be referred to [facility] for this issue (12) Intertrigo: Code(s): L30.4 - Erythema intertrigo Plan: Will start on Nystatin powder [id number] gm TID PRN (13) Onychomycosis of toenail: Code(s): B35.1 - Tinea unguium Plan: Will refer him to podiatry for further evaluation and management - patient requests referral to [facility] at their [place] office (14) Obesity (BMI 30-39.9): Code(s): E66.9 - Obesity, unspecified Plan: Reinforced diet/exercise as tolerated/lose weight Plan Follow up in 3 months Orders: Orders Complete Blood Count Auto Diff 3 Months I10 - Essential (primary) hypertension Comprehensive [place]. Panel Fast 3 Months E78.00 - Pure hypercholesterolemia, unspecified Lipid Panel 3 Months E78.00 - Pure hypercholesterolemia, unspecified TSH reflex Free T4 3 Months E78.00 - Pure hypercholesterolemia, unspecified UA CC w/rflx Micro + Cult 3 Months R30.0 - Dysuria Vitamin D 25-OH Total 3 Months E55.9 - Vitamin D deficiency, unspecified Hemoglobin A1c 3 Months R73.01 - Impaired fasting glucose Referrals Podiatry Referral B35.1 - Tinea unguium Urology Referral R10.30 - Lower abdominal pain, unspecified, R35.0 - Frequency of micturition Gastroenterology Referral K62.5 - Hemorrhage of anus and rectum Medications: New nystatin 1 appl topical TID 10 days 30 grams 3RF Coding Level of Care Code Est Pt Level 4 (19775) Diagnoses Mixed hyperlipidemia E78.2 Impaired fasting glucose R73.01 Elevated LFTs R79.89 Degenerative disc disease, cervical M50.30 Lumbar degenerative disc disease M51.36 Degenerative arthritis of knee, bilateral M17.0 Osteoarthritis type: unspecified GERD without esophagitis K21.9 Rectal bleeding K62.5 Vitamin D deficiency E55.9 Deep inguinal pain R10.30 Urinary frequency R35.0 Intertrigo L30.4 Onychomycosis of toenail B35.1 Obesity (BMI 30-39.9) E66.9
== END 2022-11-26 11:13 | disposition home or self-care (01) ==
PROVIDERS: Visit Provider Internal Medicine
DX: E78.2 Mixed hyperlipidemia (principal); K21.9 Gastro-esophageal reflux disease without esophagitis; R73.01 Impaired fasting glucose; K62.5 Hemorrhage of anus and rectum; R74.01 Elevation of levels of liver transaminase levels
CPT/HCPCS: 99214

== ENCOUNTER 2023-03-01 07:25 | Outpatient (REF) | payer MEDICARE, MEDICAID, SELFPAY ==
[2023-03-01 07:44] LABS: MANUAL DIFF FLAG NO
[2023-03-01 08:25] LABS: Basophils Percent Auto 0.8 % (0-2); Eosinophils Absolute Auto 0.2 X10*3/uL (0.0-0.4); Eosinophils Percent Auto 4.2 % (0-4); Hematocrit 45.8 % (42.0-52.0); Hemoglobin 15.2 g/dl (14.0-18.0); Lymphocytes Percent Auto 40.8 % (20-40); Mean Corpuscular HGB Conc 33.2 g/dl (31.0-36.0); Mean Corpuscular Hemoglobin 30.1 pg (27.0-33.0); Mean Corpuscular Volume 90.7 fL (80.0-98.0); Mean Platelet Volume 9.7 fL (9.4-12.4); Monocytes Absolute Auto 0.6 X10*3/uL (0.1-1.2); Monocytes Percent Auto 11.7 % (2-11); Neutrophils Absolute Auto 2.1 x10*3/uL (2.0-8.3); Neutrophils Percent Auto 42.5 % (45-73); Platelet Count 186 X10*3/uL (160-400); Red Blood Count 5.05 X10*6/uL (4.60-5.80); Red Cell Distribution Width 12.4 % (11.0-16.0)
[2023-03-01 08:34] LABS: Estimated Average Glucose 108 mg/dL; Hemoglobin A1c % 5.4 % (<6.0)
[2023-03-01 09:06] LABS: Alanine Aminotransferase 47 U/L (0-40); Albumin Level 4.3 g/dL (3.5-5.0); Alkaline Phosphatase 70 U/L (39-117); Anion Gap 11 (12-20); Aspartate Amino Transferase 49 U/L (5-37); Bilirubin Total 0.8 mg/dL (0.0-1.0); Blood Urea Nitrogen 14 mg/dL (9-16); Calcium 9.6 mg/dL (8.4-10.2); Carbon Dioxide 32 mmol/L (22-29); Chloride 108 mmol/L (96-108); Cholesterol 108 mg/dL (<200); Estimated Glomerular Filt Rate > 60; Glucose Fasting 96 mg/dL (60-99); HDL Cholesterol 32 mg/dL (>40); LDL Cholesterol Calculated 59 mg/dL (<100); Potassium 4.6 mmol/L (3.3-5.1); Sodium 146 mmol/L (135-145); Total Protein 7.5 g/dL (6.5-8.0); Triglycerides 86 mg/dL (<150)
[2023-03-01 09:10] LABS: TSH reflex Free T4 1.23 uIU/mL (0.32-4.0)
[2023-03-01 09:38] LABS: Appearance Urine Clear; Color Urine Yellow; Glucose Urine UA Negative (Negative); Leukocyte Esterase Urine Negative (Negative); Nitrite Urine Negative (Negative); Urine Blood Negative (Negative); Urine Ketones Negative (Negative); Urine Protein Negative (Neg-Trace)
== END 2023-03-01 07:26 | disposition home or self-care (01) ==
LOC: HO.LAB 07:25
PROVIDERS: PCP Internal Medicine; Visit Provider Internal Medicine
DX: E55.9 Vitamin D deficiency, unspecified (principal); E78.00 Pure hypercholesterolemia, unspecified; R73.01 Impaired fasting glucose; I10 Essential (primary) hypertension; R30.0 Dysuria
CPT/HCPCS: 36415; 80053; 80061; 81003; 82306; 83036; 84443; 85025

== ENCOUNTER 2023-03-08 09:26 | Outpatient (AMB) | payer MEDICARE, MEDICAID, SELFPAY ==
[2023-03-08 09:35] VITALS: BP 120/72; PULSE 87; O2SAT 97; BMI 35.5
--- NOTE | 2023-03-08 09:35 | A.OFFPC_ITS ---
Vital Signs 03/08/23 09:35 Height 5 ft 8 in Weight 233 lb 4 oz BMI 35.5 BP 120/72 Blood Pressure Location Lt brachial Position Sitting Pulse 87 Pulse Source Pulse Oximeter Pulse Oximetry (%) 97 Oxygen Delivery Method Room Air Intake Visit Reasons: 3 month f/u Advanced Practice Nurse Required: No Accompanied by: Self / Same As Patient Allergies No Known Allergies Allergy (Verified 03/08/23 09:47) Medication List - Last Reconciled 03/08/23 by Clifton Ray MD cholecalciferol (vitamin D3) 25 mcg PO DAILY gabapentin 300 mg PO TID [LIGHTWEIGHT ELECTRIC MOTORIZED SCOOTER As directed] niacin 500 mg PO BEDTIME nystatin 1 appl topical TID 10 days oxycodone-acetaminophen 5-325 mg 1 tab PO Q6H PRN 28 days simvastatin 20 mg PO BEDTIME Tobacco use date assessed: 03/08/23 Fall risk assessment: No Falls in past year Last assessed Fall Risk: 03/08/23 Dental Screening Dental Screen Date: 03/08/23 Did you have a dental visit in the last 12 months?: No Did you have a dental problem in the last 6 months where you did not have access to dental care?: No Was dental information given to patient?: No HPI 3 month f/u HPI Details Patient comes in today for his follow up visit States that he feels okay Relates that his umbilical hernia is starting to get bigger and feels sore/slightly painful at times; also has a right inguinal hernia that he would like to have addressed as soon as possible He requested for a referral to surgery at [facility] recently and the referral has been placed - advised that he will just have to wait for them to contact him to schedule his appointment He denies any headaches or dizziness Denies any chest pains, no SOB No nausea/vomiting, no abdominal pain No change in bowel habits noted States that his chronic neck pain, low back pain and joint pains remain adequately controlled on his current Rx Had his follow up labs done last week - to discuss his results [facility] Medical History Constipation Urinary frequency Obesity (BMI 30-39.9) GERD without esophagitis Vitamin D deficiency Degenerative arthritis of knee, bilateral Degenerative disc disease, cervical Lumbar degenerative disc disease Impaired fasting glucose Mixed hyperlipidemia Surgical History History of colonoscopy History of knee replacement procedure of right knee History of knee replacement procedure of left knee Family History Father Cancer Mother Diabetes Social History Housing: House Alcohol intake: never Patient Tobacco Use Status: Former Tobacco user e-Cigarette/Vaping Use: Never Used Second Hand Smoke Exposure: Yes service: No Current occupational status: disabled Cognitive needs: Yes (cane) Hearing needs: No Vision needs: Yes Questionnaire PHQ-9 Over the last 2 weeks, how often have you been bothered by any of the following problems? 1. Little interest or pleasure in doing things: not at all 2. Feeling down, depressed, or hopeless: not at all 3. Trouble falling or staying asleep, or sleeping too much: not at all 4. Feeling tired or having little energy: not at all 5. Poor appetite or overeating: not at all 6. Feeling bad about yourself - or that you are a failure or have let yourself or your family down: not at all 7. Trouble concentrating on things, such as reading the newspaper or watching television: not at all 8. Moving or speaking so slowly that other people could have noticed. Or the opposite - being so fidgety or restless that you have been moving around a lot more than usual: not at all 9. Thoughts that you would be better off or of hurting yourself in some way: not at all Total score: 0 Depression Screening Interpretation: Negative Depression Screening Done: Yes 35402 - PHQ-9 Billing: Yes Source: Developed by Drs. Wally Payan, Adrianne Emmanuel, Kian Villavicencio and colleagues, with an educational rolly from [employer]. Thrive Questionnaire Date Thrive assessed: 03/08/23 I am a: Patient What is your living situation today?: I have a steady place to live Within the past 12 months, did the food you bought not last and you didn't have the money to get more?: Never true Within the past 12 months, did you worry whether your food would run out before you got money to buy more?: Never true Do you have trouble paying for medicines?: No Do you have trouble getting transportation to medical appointments?: No Do you have trouble paying your heating and electricity bill?: No Do you have trouble taking care of your child, family member or friend?: No Do you have trouble with day-to-day activities such as bathing, preparing meals, shopping, managing finances, etc.?: No Are you currently unemployed and looking for a job?: No Are you interested in more education?: No Please select the resources that you would like help with: None Currently or been in a relationship where the following occur: no concerns reported AUDIT C Alcohol Use Questionnaire (AUDIT-C) 1. How often do you have a drink containing alcohol?: Never 3. How often do you have six or more drinks on one occasion?: Never Total Score: 0 Score Reviewed/Action Taken: Yes PHYLLIS-7 AMB Questionnaire PHYLLIS-7 Date PHYLLIS - 7 assessed: 03/08/23 Feeling nervous, anxious, or on edge: 0 = Not at all Not being able to stop or control worryin = Not at all Worrying too much about different things: 0 = Not at all Trouble relaxin = Not at all Being so restless that it is hard to sit still: 0 = Not at all Becoming easily annoyed or irritable: 0 = Not at all Feeling afraid as if something awful might happen: 0 = Not at all Total PHYLLIS-7 score (0-4 normal; 5-9 mild; 10-14 moderate; 15-21 severe): 0 Source: Developed by Drs. Wally Payan, Adrianne Emmanuel, Kian Villavicencio and colleagues, with an educational rolly from [employer]. Review of Systems Const Denies chills, Reports fatigue, Denies fever(s) and Denies headache(s) ENT Denies dysphagia, Denies dizziness, Denies otalgia, Denies headache(s), Reports neck pain (chronic), Denies odynophagia and Denies sore throat Card Denies chest pain, Denies palpitations and Denies dyspnea Resp Denies cough, Denies dyspnea and Denies wheezing GI Details: (+) umbilical hernia and right inguinal hernia Reports abdominal pain (over the inguinal area - chronic), Reports constipation (on and off), Denies dysphagia, Denies heartburn, Denies diarrhea, Denies nausea, Denies odynophagia and Denies vomiting Details: (+) bilateral inguinal pain Denies hematuria, Reports difficulty urinating (at times), Reports dysuria (at times, over the inguinal and suprapubic areas), Reports urinary frequency and Reports urinary incontinence (occasionally) Musc Reports back pain (over the lumbar spine - chronic), Reports arthralgias (both knees) and Reports neck pain (chronic) Skin/Breast Denies rash Neuro Denies dizziness and Denies headache(s) Endo Reports fatigue and Denies palpitations Aller/Immun Denies wheezing Physical exam (Primary Care) Vital Signs: Last Vital Signs Pulse 87 03/08/23 09:35 BP 120/72 03/08/23 09:35 Pulse Ox 97 03/08/23 09:35 Oxygen Delivery Method Room Air 03/08/23 09:35 BMI result Body Mass Index 35.5 Tobacco/Smoking Status: Tobacco use Status Tobacco use date assessed 03/08/23 03/08/23 09:41 Patient Tobacco Use Status Former Tobacco user 03/08/23 09:41 e-Cigarette/Vaping Use Never Used 03/08/23 09:41 PHQ-9: PHQ-9 Score PHQ-9: Total score 0 03/08/23 09:41 Depression Screening Interpretation: Negative Thrive Assessment: Date of Thrive Assessment Date Thrive assessed 03/08/23 03/08/23 09:41 Currently or been in a relationship where the following occur: no concerns reported Const General: no acute distress and alert HENMT Ears: TM's normal bilaterally and EAC's normal Throat: Yes posterior oropharynx normal and Yes tonsils normal (no TP congestion noted) Neck Neck: Yes no lymphadenopathy Resp Auscultation: clear to auscultation bilaterally, no rales and no wheezes Cardio Rate: regular rate Rhythm: regular rhythm Heart sounds: no murmurs GI Palpation (GI): Soft to palpation, Tenderness to palpation present (GI) (bilateral inguinal areas) with no rebound tenderness, no guarding, not rigid and Hernia present direct inguinal on the right and umbilical Auscultation: normal bowel sounds Other: (+) bilateral inguinal tenderness, right > left Back/Spine/Pelvis Cervical Spine: Cervical spine tenderness Thoracic/Lumbar Spine: lumbar spinal tenderness (chronic) Skin Rashes: no rashes Extrem General: Yes no clubbing, cyanosis or edema Results Reviewed Results Reviewed: Laboratory Tests 03/01/23 03/01/23 03/01/23 07:44 07:44 07:44 WBC 5.0 Hgb 15.2 Hct 45.8 Plt Count 186 Sodium 146 H Potassium 4.6 Creatinine 0.87 Estimated GFR > 60 Fasting Glucose 96 Hemoglobin A1c % 5.4 Calcium 9.6 AST 49 H ALT 47 H Triglycerides 86 Cholesterol 108 LDL Cholesterol, Calc 59 HDL Cholesterol 32 L 25-OH Vitamin D Total 39.0 TSH 1.23 Urine pH Ur Specific [place] Urine Protein Urine Glucose (UA) Urine Blood 03/01/23 03/01/23 07:45 07:45 WBC Hgb Hct Plt Count Sodium Potassium Creatinine Estimated GFR Fasting Glucose Hemoglobin A1c % Calcium AST ALT Triglycerides Cholesterol LDL Cholesterol, Calc HDL Cholesterol 25-OH Vitamin D Total TSH Urine pH 6.0 Ur Specific [place] 1.020 Urine Protein Negative Urine Glucose (UA) Negative Urine Blood Negative Assessment and Plan Assessment & Plan (1) Mixed hyperlipidemia: Code(s): E78.2 - Mixed hyperlipidemia Plan: Results of his labs done last week reviewed and discussed with patient - advised that his total and LDL cholesterol numbers remain at goal Reinforced low cholesterol diet Continue Simvastatin 20 mg QD and Niaspan ER 500 mg QHS Will recheck his labs and fasting lipids in 3 months for follow up (2) Impaired fasting glucose: Code(s): R73.01 - Impaired fasting glucose Plan: HgbA1c remains normal at 5.4% on his labs done last week; was previously at 5.7% a few months ago; FBS was normal at 96 mg/dl Reinforced low calorie diet/exercise as tolerated (3) Elevated LFTs: Code(s): R79.89 - Other specified abnormal findings of blood chemistry Plan: Mild - LFTs are still slightly elevated on his recent labs done last week - is most likely related to his weight Will recheck his LFTs in 3 months for follow up and will continue to monitor these regularly (4) Lumbar degenerative disc disease: Comment: Repeat lumbar spine MRI done on 11/03/2018 revealed (+) mild to moderate multilevel chronic spondylosis of the lumbar spine without associated marked central or foraminal stenosis or evidence of direct nerve root impingement Code(s): M51.36 - Other intervertebral disc degeneration, lumbar region Plan: Reinforced activity and weight-lifting restrictions Continue Gabapentin 300 mg TID and Cyclobenzaprine 10 mg TID PRN (5) Degenerative disc disease, cervical: Comment: Cervical spine MRI in October 2016 revealed a slight increase in his cervical spine spondylosis (multilevel) Repeat cervical spine MRI on 11/03/2018 showed stable appearing multilevel cervical spondylosis; multilevel degenerative changes resulting in varying degrees of moderate to severe foraminal stenosis throughout the cervical spine but there is no severe central canal stenosis. There is bone marrow edema within the left C2 and C3 facets most likely degenerative or inflammatory Code(s): M50.30 - Other cervical disc degeneration, unspecified cervical region Plan: Continue Oxycodone-Acetaminophen 5-325 mg every 6 hours as needed Follow up with neurosurgery (Dr. Keller) as scheduled - was reportedly presented with the option of either repeat cortisone injection (which patient declined) or ACDF, especially if patient's neck symptoms get worse; patient has not yet decided on which option he wants to go with at this time (6) Degenerative arthritis of knee, bilateral: Comment: S/P bilateral knee arthroplasty Code(s): M17.0 - Bilateral primary osteoarthritis of knee Qualifiers: Osteoarthritis type: unspecified Qualified Code(s): M17.0 - Bilateral primary osteoarthritis of knee Plan: S/P bilateral knee arthroplasty - has been doing well since surgery Follow up with orthopedic as scheduled (7) GERD without esophagitis: Code(s): K21.9 - Gastro-esophageal reflux disease without esophagitis Plan: Dietary restrictions reinforced Continue Omeprazole 20 mg QD (8) Vitamin D deficiency: Code(s): E55.9 - Vitamin D deficiency, unspecified Plan: Continue Vitamin D3 1000 units QD (9) Deep inguinal pain: Comment: Diagnosed as bilateral Inguinal Disruption Code(s): R10.30 - Lower abdominal pain, unspecified Plan: Has been receiving trigger point injections over the inguinal areas from Dr. Steinberg over the past few months with little relief and was referred for pelvic girdle assessment Is now going to [facility] in [place] - to continue following up with urology as scheduled (10) Urinary frequency: Code(s): R35.0 - Frequency of micturition Plan: Follow up with urology as scheduled (11) Umbilical hernia: Code(s): K42.9 - Umbilical hernia without obstruction or gangrene Qualifiers: Obstruction and gangrene presence: without obstruction or gangrene Qualified Code(s): K42.9 - Umbilical hernia without obstruction or gangrene Plan: Has been referred to [facility], per request, for further evaluation and management - is currently awaiting appointment to be scheduled (12) Inguinal hernia: Code(s): K40.90 - Unilateral inguinal hernia, without obstruction or gangrene, not specified as recurrent Qualifiers: Obstruction and gangrene presence: without obstruction or gangrene Laterality: unilateral Recurrence: not specified as recurrent Qualified Code(s): K40.90 - Unilateral inguinal hernia, without obstruction or gangrene, not specified as recurrent Plan: Per request, he has been referred to [facility] for further evaluation and management and is currently awaiting appointment to be scheduled (13) Obesity (BMI 30-39.9): Code(s): E66.9 - Obesity, unspecified Plan: Reinforced diet/exercise as tolerated/lose weight Plan Follow up in 3 months Orders: Orders Vitamin D 25-OH Total 3 Months E55.9 - Vitamin D deficiency, unspecified Erythrocyte Sedimentation Rate 3 Months M17.0 - Bilateral primary osteoarthritis of knee, M50.30 - Other cervical disc degeneration, unspecified cervical region, M51.36 - Other intervertebral disc degeneration, lumbar region Complete Blood Count Auto Diff 3 Months I10 - Essential (primary) hypertension Comprehensive [place]. Panel Fast 3 Months E78.00 - Pure hypercholesterolemia, unspecified Lipid Panel 3 Months E78.00 - Pure hypercholesterolemia, unspecified TSH reflex Free T4 3 Months E78.00 - Pure hypercholesterolemia, unspecified UA CC w/rflx Micro + Cult 3 Months R30.0 - Dysuria Coding Level of Care Code Est Pt Level 4 (01699) Diagnoses Mixed hyperlipidemia E78.2 Impaired fasting glucose R73.01 Elevated LFTs R79.89 Lumbar degenerative disc disease M51.36 Degenerative disc disease, cervical M50.30 Osteoarthritis of both knees, unspecified osteoarthritis type M17.0 Osteoarthritis type: unspecified GERD without esophagitis K21.9 Vitamin D deficiency E55.9 Deep inguinal pain R10.30 Urinary frequency R35.0 Umbilical hernia without obstruction and without gangrene K42.9 Obstruction and gangrene presence: without obstruction or gangrene Unilateral inguinal hernia without obstruction or gangrene, recurrence not specified K40.90 Obstruction and gangrene presence: without obstruction or gangrene Laterality: unilateral Recurrence: not specified as recurrent Obesity (BMI 30-39.9) E66.9
== END 2023-03-08 10:22 | disposition home or self-care (01) ==
PROVIDERS: PCP Internal Medicine; Visit Provider Internal Medicine
DX: E78.2 Mixed hyperlipidemia (principal); R73.01 Impaired fasting glucose; R79.89 Other specified abnormal findings of blood chemistry; M51.36 Other intervertebral disc degeneration, lumbar region; M50.30 Other cervical disc degeneration, unspecified cervical region; M17.0 Bilateral primary osteoarthritis of knee; K21.9 Gastro-esophageal reflux disease without esophagitis; E55.9 Vitamin D deficiency, unspecified; R10.30 Lower abdominal pain, unspecified; R35.0 Frequency of micturition; K42.9 Umbilical hernia without obstruction or gangrene; K40.90 Unilateral inguinal hernia, without obstruction or gangrene, not specified as recurrent
CPT/HCPCS: 99214

== ENCOUNTER 2023-06-03 06:22 | Outpatient (REF) | payer MEDICARE, MEDICAID, SELFPAY ==
[2023-06-03 06:40] LABS: MANUAL DIFF FLAG NO
[2023-06-03 07:56] LABS: Basophils Absolute Auto 0.1 X10*3/uL (0.0-0.2); Basophils Percent Auto 1.2 % (0-2); Eosinophils Absolute Auto 0.3 X10*3/uL (0.0-0.4); Eosinophils Percent Auto 5.7 % (0-4); Hematocrit 46.4 % (42.0-52.0); Hemoglobin 15.3 g/dl (14.0-18.0); Lymphocytes Absolute Auto 2.2 X10*3/uL (1.2-4.9); Lymphocytes Percent Auto 42.5 % (20-40); Mean Corpuscular Hemoglobin 30.4 pg (27.0-33.0); Mean Corpuscular Volume 92.2 fL (80.0-98.0); Monocytes Absolute Auto 0.6 X10*3/uL (0.1-1.2); Monocytes Percent Auto 11.2 % (2-11); Neutrophils Percent Auto 39.4 % (45-73); Platelet Count 183 X10*3/uL (160-400); Red Blood Count 5.03 X10*6/uL (4.60-5.80); Red Cell Distribution Width 12.2 % (11.0-16.0); White Blood Count 5.1 X10*3/uL (4.8-10.8)
[2023-06-03 07:58] LABS: Appearance Urine Clear; Color Urine Yellow; Glucose Urine UA Negative (Negative); Leukocyte Esterase Urine Negative (Negative); Nitrite Urine Negative (Negative); Specific Gravity - Urine 1.015 (1.005-1.025); Urine Blood Negative (Negative); Urine Ketones Trace mg/dL (Negative); Urine Protein Negative (Neg-Trace)
[2023-06-03 08:32] LABS: Erythrocyte Sedimentation Rate 1 MM/HR (0-15)
[2023-06-03 08:44] LABS: Alanine Aminotransferase 33 U/L (0-40); Alkaline Phosphatase 70 U/L (39-117); Anion Gap 11 (12-20); Aspartate Amino Transferase 40 U/L (5-37); Bilirubin Total 0.9 mg/dL (0.0-1.0); Blood Urea Nitrogen 6 mg/dL (9-16); Calcium 9.1 mg/dL (8.4-10.2); Carbon Dioxide 31 mmol/L (22-29); Chloride 104 mmol/L (96-108); Cholesterol 123 mg/dL (<200); Estimated Glomerular Filt Rate > 60; Glucose Fasting 86 mg/dL (60-99); HDL Cholesterol 33 mg/dL (>40); LDL Cholesterol Calculated 67 mg/dL (<100); Potassium 3.8 mmol/L (3.3-5.1); Sodium 142 mmol/L (135-145); Total Protein 7.3 g/dL (6.5-8.0); Triglycerides 119 mg/dL (<150)
[2023-06-03 09:05] LABS: TSH reflex Free T4 1.75 uIU/mL (0.32-4.0); Vitamin D 25-OH Total 39.3 ng/mL (>30)
== END 2023-06-03 06:23 | disposition home or self-care (01) ==
LOC: HO.LAB 06:22
PROVIDERS: PCP Internal Medicine; Visit Provider Internal Medicine
DX: E78.00 Pure hypercholesterolemia, unspecified (principal); E55.9 Vitamin D deficiency, unspecified; M17.0 Bilateral primary osteoarthritis of knee; M51.36 Other intervertebral disc degeneration, lumbar region; M50.30 Other cervical disc degeneration, unspecified cervical region; I10 Essential (primary) hypertension; R30.0 Dysuria
CPT/HCPCS: 36415; 80053; 80061; 81003; 82306; 84443; 85025; 85652

== ENCOUNTER 2023-06-09 10:02 | Outpatient (AMB) | payer MEDICARE, MEDICAID, SELFPAY ==
[2023-06-09 10:14] VITALS: BP 100/62; PULSE 51; O2SAT 95; BMI 35.1
--- NOTE | 2023-06-09 10:14 | A.OFFPC_ITS ---
Vital Signs 06/09/23 10:14 Height 5 ft 8 in Weight 231 lb BMI 35.1 BP 100/62 Blood Pressure Location Lt brachial Position Sitting Pulse 51 Pulse Source Pulse Oximeter Pulse Oximetry (%) 95 Oxygen Delivery Method Room Air Intake Visit Reasons: hyperlipidemia,chronic lumbarDDD,chronic neck pain Cook Cold Meat Required: No Accompanied by: Self / Same As Patient Allergies No Known Allergies Allergy (Verified 06/09/23 10:31) Medication List - Last Reconciled 06/09/23 by Clifton Ray MD cholecalciferol (vitamin D3) 25 mcg PO DAILY gabapentin 300 mg PO TID [LIGHTWEIGHT ELECTRIC MOTORIZED SCOOTER As directed] niacin 500 mg PO BEDTIME oxycodone-acetaminophen 5-325 mg 1 tab PO Q6H PRN 28 days simvastatin 20 mg PO BEDTIME Tobacco use date assessed: 06/09/23 Fall risk assessment: No Falls in past year Last assessed Fall Risk: 06/09/23 Dental Screening Dental Screen Date: 06/09/23 Did you have a dental visit in the last 12 months?: No Did you have a dental problem in the last 6 months where you did not have access to dental care?: No Was dental information given to patient?: No HPI hyperlipidemia,chronic lumbarDDD,chronic neck pain HPI Details Patient comes in today for his follow up visit States that he feels okay He denies any headaches or dizziness Denies any chest pains, no increased SOB No nausea/vomiting, states that his stomach feels tight at times and he continues to experience (chronic) pain over his right inguinal area that he feels is due to his hernia No change in bowel habits noted States that his chronic low back pain and joint pains remain adequately controlled on his current Rx Had his follow up labs done a few days ago - to discuss his results He had an abdominal US done at [facility] a few days ago on 06/06/23 - US was ordered by [facility] to look into his hernias He is also scheduled for his repeat colonoscopy with Dr. Garcia tomorrow (06/10/23) here at [facility] Medical History Hx of rotator cuff tear Back pain Hyperlipidemia Hx of degenerative disc disease DVT (deep venous thrombosis) Internal hemorrhoid Diverticulosis Constipation Urinary frequency Obesity (BMI 30-39.9) GERD without esophagitis Vitamin D deficiency Degenerative arthritis of knee, bilateral Degenerative disc disease, cervical Lumbar degenerative disc disease Impaired fasting glucose Mixed hyperlipidemia Surgical History Hx of excision of mass Hx of varicose vein stripping Hx of umbilical hernia repair Hx of foot surgery History of ankle surgery History of esophagogastroduodenoscopy (EGD) History of colonoscopy History of knee replacement procedure of right knee History of knee replacement procedure of left knee Family History Father Cancer Mother Diabetes Social History Housing: House Alcohol intake: never Patient Tobacco Use Status: Former Tobacco user e-Cigarette/Vaping Use: Never Used Second Hand Smoke Exposure: Yes service: No Current occupational status: disabled Cognitive needs: Yes (cane) Hearing needs: No Vision needs: Yes Questionnaire PHQ-9 Over the last 2 weeks, how often have you been bothered by any of the following problems? 1. Little interest or pleasure in doing things: not at all 2. Feeling down, depressed, or hopeless: not at all 3. Trouble falling or staying asleep, or sleeping too much: not at all 4. Feeling tired or having little energy: not at all 5. Poor appetite or overeating: not at all 6. Feeling bad about yourself - or that you are a failure or have let yourself or your family down: not at all 7. Trouble concentrating on things, such as reading the newspaper or watching television: not at all 8. Moving or speaking so slowly that other people could have noticed. Or the opposite - being so fidgety or restless that you have been moving around a lot more than usual: not at all 9. Thoughts that you would be better off or of hurting yourself in some way: not at all Total score: 0 Depression Screening Interpretation: Negative Depression Screening Done: Yes 83882 - PHQ-9 Billing: Yes Source: Developed by Drs. Wally Payan, Adrianne Emmanuel, Kian Villavicencio and colleagues, with an educational rolly from [employer] Thrive Questionnaire Date Thrive assessed: 06/09/23 I am a: Patient What is your living situation today?: I have a steady place to live Within the past 12 months, did the food you bought not last and you didn't have the money to get more?: Never true Within the past 12 months, did you worry whether your food would run out before you got money to buy more?: Never true Do you have trouble paying for medicines?: No Do you have trouble getting transportation to medical appointments?: No Do you have trouble paying your heating and electricity bill?: No Do you have trouble taking care of your child, family member or friend?: No Do you have trouble with day-to-day activities such as bathing, preparing meals, shopping, managing finances, etc.?: No Are you currently unemployed and looking for a job?: No Are you interested in more education?: No Please select the resources that you would like help with: None Currently or been in a relationship where the following occur: no concerns reported THRIVE Score: 0 AUDIT C Alcohol Use Questionnaire (AUDIT-C) 1. How often do you have a drink containing alcohol?: Never 3. How often do you have six or more drinks on one occasion?: Never Total Score: 0 Score Reviewed/Action Taken: Yes PHYLLIS-7 AMB Questionnaire PHYLLIS-7 Date PHYLLIS - 7 assessed: 06/09/23 Feeling nervous, anxious, or on edge: 0 = Not at all Not being able to stop or control worryin = Not at all Worrying too much about different things: 0 = Not at all Trouble relaxin = Not at all Being so restless that it is hard to sit still: 0 = Not at all Becoming easily annoyed or irritable: 0 = Not at all Feeling afraid as if something awful might happen: 0 = Not at all Total PHYLLIS-7 score (0-4 normal; 5-9 mild; 10-14 moderate; 15-21 severe): 0 Source: Developed by Drs. Wally Payan, Adrianne Emmanuel, Kian Villavicencio and colleagues, with an educational rolly from [employer] Review of Systems Const Denies chills, Reports fatigue, Denies fever(s) and Denies headache(s) ENT Denies dysphagia, Denies dizziness, Denies otalgia, Denies headache(s), Reports neck pain (chronic), Denies odynophagia and Denies sore throat Card Denies chest pain, Denies palpitations and Denies dyspnea Resp Denies cough, Denies dyspnea and Denies wheezing GI Details: (+) umbilical hernia and right inguinal hernia Reports abdominal pain (over the inguinal area - chronic), Reports constipation (on and off), Denies dysphagia, Denies heartburn, Denies diarrhea, Denies nausea, Denies odynophagia and Denies vomiting Details: (+) bilateral inguinal pain Denies hematuria, Reports difficulty urinating (at times), Reports dysuria (at times, over the inguinal and suprapubic areas), Reports urinary frequency and Reports urinary incontinence (occasionally) Musc Reports back pain (over the lumbar spine - chronic), Reports arthralgias (both knees) and Reports neck pain (chronic) Skin/Breast Denies rash Neuro Denies dizziness and Denies headache(s) Endo Reports fatigue and Denies palpitations Aller/Immun Denies wheezing Physical exam (Primary Care) Vital Signs: Last Vital Signs Pulse 51 06/09/23 10:14 BP 100/62 06/09/23 10:14 Pulse Ox 95 06/09/23 10:14 Oxygen Delivery Method Room Air 06/09/23 10:14 BMI result Body Mass Index 35.1 Tobacco/Smoking Status: Tobacco use Status Tobacco use date assessed 06/09/23 06/09/23 10:20 Patient Tobacco Use Status Former Tobacco user 06/09/23 10:20 e-Cigarette/Vaping Use Never Used 06/09/23 10:20 PHQ-9: PHQ-9 Score PHQ-9: Total score 0 06/09/23 10:20 Depression Screening Interpretation: Negative Thrive Assessment: Date of Thrive Assessment Date Thrive assessed 06/09/23 06/09/23 10:20 Currently or been in a relationship where the following occur: no concerns reported Const General: no acute distress and alert HENMT Ears: TM's normal bilaterally and EAC's normal Throat: Yes posterior oropharynx normal and Yes tonsils normal (no TP congestion noted) Neck Neck: Yes no lymphadenopathy Thyroid: Thyroid normal Resp Auscultation: clear to auscultation bilaterally, no rales and no wheezes Cardio Rate: regular rate Rhythm: regular rhythm Heart sounds: no murmurs GI Palpation (GI): Soft to palpation, Tenderness to palpation present (GI) (bilateral inguinal areas) with no rebound tenderness, no guarding, not rigid and Hernia present direct inguinal on the right and umbilical Auscultation: normal bowel sounds Other: (+) bilateral inguinal tenderness, right > left General: Yes no CVA tenderness Back/Spine/Pelvis Back: no CVA tenderness Cervical Spine: Cervical spine tenderness Thoracic/Lumbar Spine: lumbar spinal tenderness (chronic) Skin Rashes: no rashes Extrem General: Yes no clubbing, cyanosis or edema Results Reviewed Results Reviewed: Laboratory Tests 06/03/23 06/03/23 06/03/23 06:38 06:38 06:38 WBC 5.1 Hgb 15.3 Hct 46.4 Plt Count 183 Sodium 142 Potassium 3.8 Creatinine 0.83 Estimated GFR > 60 Fasting Glucose 86 Calcium 9.1 AST 40 H ALT 33 Triglycerides 119 Cholesterol 123 LDL Cholesterol, Calc 67 HDL Cholesterol 33 L 25-OH Vitamin D Total 39.3 TSH 1.75 Ur Specific [place] Urine Protein Urine Glucose (UA) Urine Blood Urine Nitrite Ur Leukocyte Esterase 06/03/23 06/03/23 06:40 06:40 WBC Hgb Hct Plt Count Sodium Potassium Creatinine Estimated GFR Fasting Glucose Calcium AST ALT Triglycerides Cholesterol LDL Cholesterol, Calc HDL Cholesterol 25-OH Vitamin D Total TSH Ur Specific [place] 1.015 Urine Protein Negative Urine Glucose (UA) Negative Urine Blood Negative Urine Nitrite Negative Ur Leukocyte Esterase Negative Assessment and Plan Assessment & Plan (1) Mixed hyperlipidemia: Code(s): E78.2 - Mixed hyperlipidemia Plan: Results of his labs done a few days ago reviewed and discussed with patient - his cholesterol numbers remain at goal Reinforced low cholesterol diet Continue Simvastatin 20 mg QD and Niaspan ER 500 mg QHS Will recheck his labs and fasting lipids in 3 months for follow up (2) Impaired fasting glucose: Code(s): R73.01 - Impaired fasting glucose Plan: HgbA1c was normal at 5.4% and 5.7% when checked previously; FBS was normal at 86 mg/dl on his recent labs Reinforced low calorie diet/exercise as tolerated (3) Elevated LFTs: Code(s): R79.89 - Other specified abnormal findings of blood chemistry Plan: Improving - is most likely related to his weight Will recheck his LFTs in 3 months for follow up (4) Lumbar degenerative disc disease: Comment: Repeat lumbar spine MRI done on 11/03/2018 revealed (+) mild to moderate multilevel chronic spondylosis of the lumbar spine without associated marked central or foraminal stenosis or evidence of direct nerve root impingement Code(s): M51.36 - Other intervertebral disc degeneration, lumbar region Plan: Reinforced activity and weight-lifting restrictions Continue Gabapentin 300 mg TID and Cyclobenzaprine 10 mg TID PRN (5) Degenerative disc disease, cervical: Comment: Cervical spine MRI in October 2016 revealed a slight increase in his cervical spine spondylosis (multilevel) Repeat cervical spine MRI on 11/03/2018 showed stable appearing multilevel ce rvical spondylosis; multilevel degenerative changes resulting in varying degrees of moderate to severe foraminal stenosis throughout the cervical spine but there is no severe central canal stenosis. There is bone marrow edema within the left C2 and C3 facets most likely degenerative or inflammatory Code(s): M50.30 - Other cervical disc degeneration, unspecified cervical region Plan: Continue Oxycodone-Acetaminophen 5-325 mg every 6 hours as needed Follow up with neurosurgery (Dr. Keller) as scheduled - was reportedly presented with the option of either repeat cortisone injection (which patient declined) or ACDF, especially if patient's neck symptoms get worse; patient has not yet decided on which option he wants to go with at this time (6) Degenerative arthritis of knee, bilateral: Comment: S/P bilateral knee arthroplasty Code(s): M17.0 - Bilateral primary osteoarthritis of knee Qualifiers: Osteoarthritis type: unspecified Qualified Code(s): M17.0 - Bilateral primary osteoarthritis of knee Plan: S/P bilateral knee arthroplasty - has been doing well since surgery Follow up with orthopedic as scheduled (7) GERD without esophagitis: Code(s): K21.9 - Gastro-esophageal reflux disease without esophagitis Plan: Dietary restrictions reinforced Continue Omeprazole 20 mg QD (8) Vitamin D deficiency: Code(s): E55.9 - Vitamin D deficiency, unspecified Plan: Continue Vitamin D3 1000 units QD (9) Deep inguinal pain: Comment: Diagnosed as bilateral Inguinal Disruption Code(s): R10.30 - Lower abdominal pain, unspecified Plan: Has been receiving trigger point injections over the inguinal areas from Dr. Steinberg over the past few months with little relief and was referred for pelvic girdle assessment Is now going to [facility] in [place] - to continue following up with urology as scheduled (10) Urinary frequency: Code(s): R35.0 - Frequency of micturition Plan: Follow up with urology as scheduled (11) Umbilical hernia: Code(s): K42.9 - Umbilical hernia without obstruction or gangrene Qualifiers: Obstruction and gangrene presence: without obstruction or gangrene Qualified Code(s): K42.9 - Umbilical hernia without obstruction or gangrene Plan: He has been seen by HOSEA Orlando of [facility] and reportedly had an abdominal US done at [facility] a few days ago on 06/06/2023 Will try to obtain a copy of his US report for review Follow up with [facility] as scheduled (12) Inguinal hernia: Code(s): K40.90 - Unilateral inguinal hernia, without obstruction or gangrene, not specified as recurrent Qualifiers: Obstruction and gangrene presence: without obstruction or gangrene Laterality: unilateral Recurrence: not specified as recurrent Qualified Code(s): K40.90 - Unilateral inguinal hernia, without obstruction or gangrene, not specified as recurrent Plan: Follow up with [facility] as scheduled (13) Obesity (BMI 30-39.9): Code(s): E66.9 - Obesity, unspecified Plan: Reinforced diet/exercise as tolerated/lose weight Plan Follow up in 3 months Orders: Orders Complete Blood Count Auto Diff 3 Months D64.9 - Anemia, unspecified Comprehensive [place]. Panel Fast 3 Months E78.00 - Pure hypercholesterolemia, unspecified UA CC w/rflx Micro + Cult 3 Months R30.0 - Dysuria Vitamin D 25-OH Total 3 Months E55.9 - Vitamin D deficiency, unspecified Lipid Panel 3 Months E78.00 - Pure hypercholesterolemia, unspecified Coding Level of Care Code Est Pt Level 4 (82388) Diagnoses Mixed hyperlipidemia E78.2 Impaired fasting glucose R73.01 Elevated LFTs R79.89 Lumbar degenerative disc disease M51.36 Degenerative disc disease, cervical M50.30 Osteoarthritis of both knees, unspecified osteoarthritis type M17.0 Osteoarthritis type: unspecified GERD without esophagitis K21.9 Vitamin D deficiency E55.9 Deep inguinal pain R10.30 Urinary frequency R35.0 Umbilical hernia without obstruction and without gangrene K42.9 Obstruction and gangrene presence: without obstruction or gangrene Unilateral inguinal hernia without obstruction or gangrene, recurrence not specified K40.90 Obstruction and gangrene presence: without obstruction or gangrene Laterality: unilateral Recurrence: not specified as recurrent Obesity (BMI 30-39.9) E66.9
== END 2023-06-09 10:42 | disposition home or self-care (01) ==
PROVIDERS: PCP Internal Medicine; Visit Provider Internal Medicine
DX: E78.2 Mixed hyperlipidemia (principal); R73.01 Impaired fasting glucose; R79.89 Other specified abnormal findings of blood chemistry; M51.36 Other intervertebral disc degeneration, lumbar region; M50.30 Other cervical disc degeneration, unspecified cervical region; M17.0 Bilateral primary osteoarthritis of knee; K21.9 Gastro-esophageal reflux disease without esophagitis; E55.9 Vitamin D deficiency, unspecified; R10.30 Lower abdominal pain, unspecified; R35.0 Frequency of micturition; K42.9 Umbilical hernia without obstruction or gangrene; K40.90 Unilateral inguinal hernia, without obstruction or gangrene, not specified as recurrent
CPT/HCPCS: 99214

== ENCOUNTER 2023-06-10 12:27 | Day surgery (SDC) | payer MEDICARE, MEDICAID, SELFPAY ==
[2023-06-08 13:29] VITALS: BMI 34.5
--- NOTE | 2023-06-09 09:48 | P.CONAN_ITS ---
Documented by User: Janette Robb NP 06/09/23 09:49 HPI - Anesthesia Eval Consult details Narrative: 67yo M for Colonoscopy PMFSH Active Problems Active Problems: All Active Problems (Updated 06/08/23 @ 13:18 by Rohini Gates RN) Inguinal hernia (Acute) Umbilical hernia (Acute) Elevated LFTs (Acute) Intertrigo (Acute) Rectal bleeding (Acute) Onychomycosis of toenail (Acute) Deep inguinal pain (Acute) Deep inguinal pain, left (Acute) Deep inguinal pain, right (Acute) Annual physical exam (Acute) Constipation (Acute) Urinary frequency (Acute) Obesity (BMI 30-39.9) (Acute) GERD without esophagitis (Acute) Vitamin D deficiency (Acute) Degenerative arthritis of knee, bilateral (Acute) Degenerative disc disease, cervical (Acute) Lumbar degenerative disc disease (Acute) Impaired fasting glucose (Acute) Mixed hyperlipidemia (Acute) Past Medical History Medical History Hx of rotator cuff tear Back pain Hyperlipidemia Hx of degenerative disc disease DVT (deep venous thrombosis) Internal hemorrhoid Diverticulosis Constipation Urinary frequency Obesity (BMI 30-39.9) GERD without esophagitis Vitamin D deficiency Degenerative arthritis of knee, bilateral Degenerative disc disease, cervical Lumbar degenerative disc disease Impaired fasting glucose Mixed hyperlipidemia Family History Family History Father Cancer Mother Diabetes Surgical History Surgical History Hx of excision of mass Hx of varicose vein stripping Hx of umbilical hernia repair Hx of foot surgery History of ankle surgery History of esophagogastroduodenoscopy (EGD) History of colonoscopy History of knee replacement procedure of right knee History of knee replacement procedure of left knee Social History Social History Housing: House Alcohol intake: never Patient Tobacco Use Status: Former Tobacco user e-Cigarette/Vaping Use: Never Used Second Hand Smoke Exposure: Yes Are you DNR?: No Advance Directives: No Advance Directives Information Provided: Yes Recently lost weight without trying: No Nutrition Risks: No Nutritional Risk service: No Current occupational status: disabled Cognitive needs: Yes (cane) Hearing needs: No Vision needs: Yes Meds Allergies Allergy/AdvReac Type Severity Reaction Status Date / Time No Known Allergies Allergy Verified 06/09/23 10:31 Home Medications Medication Instructions Recorded Confirmed Last Taken Type cholecalciferol (vitamin D3) 25 25 mcg PO DAILY 04/30/20 06/09/23 Unknown History mcg (1,000 unit) capsule niacin 500 mg tablet 500 mg PO BEDTIME 10/31/20 06/09/23 Unknown History Exam Height,Weight and Vital Signs: Height 5 ft 8.5 in Weight 104.326 kg Pertinent Lab Results Pertinent Lab Results: Laboratory Tests 06/03/23 06:38 WBC 5.1 Hgb 15.3 Hct 46.4 Plt Count 183 Sodium 142 Potassium 3.8 Chloride 104 Carbon Dioxide 31 H BUN 6 L Creatinine 0.83 Assessment and Plan Assessment Anesthesia Assessment: Chart Reviewed Documented by User: Jalil Mckeon MD 06/10/23 13:24 PMFSH Past Medical History Medical History Hx of rotator cuff tear Back pain Hyperlipidemia Hx of degenerative disc disease DVT (deep venous thrombosis) Internal hemorrhoid Diverticulosis Constipation Urinary frequency Obesity (BMI 30-39.9) GERD without esophagitis Vitamin D deficiency Degenerative arthritis of knee, bilateral Degenerative disc disease, cervical Lumbar degenerative disc disease Impaired fasting glucose Mixed hyperlipidemia Family History Family History Father Cancer Mother Diabetes Surgical History Surgical History Hx of excision of mass Hx of varicose vein stripping Hx of umbilical hernia repair Hx of foot surgery History of ankle surgery History of esophagogastroduodenoscopy (EGD) History of colonoscopy History of knee replacement procedure of right knee History of knee replacement procedure of left knee Social History Social History Housing: House Alcohol intake: never Patient Tobacco Use Status: Former Tobacco user e-Cigarette/Vaping Use: Never Used Second Hand Smoke Exposure: Yes Are you DNR?: No Advance Directives: No Advance Directives Information Provided: Yes Recently lost weight without trying: No Nutrition Risks: No Nutritional Risk service: No Current occupational status: disabled Cognitive needs: Yes (cane) Hearing needs: No Vision needs: Yes Meds Allergies Allergy/AdvReac Type Severity Reaction Status Date / Time No Known Allergies Allergy Verified 06/09/23 10:31 Home Medications Medication Instructions Recorded Confirmed Last Taken Type cholecalciferol (vitamin D3) 25 25 mcg PO DAILY 04/30/20 06/09/23 Unknown Histo ry mcg (1,000 unit) capsule niacin 500 mg tablet 500 mg PO BEDTIME 10/31/20 06/09/23 Unknown History Exam Airway Mallampati Class: II TM Dist: >3cm Neck ROM: Limited Denture: Upper and Lower Heart: rrr Lungs: cta b/l Assessment and Plan Assessment Anesthesia Assessment: Anesthesia Plan Discussed and Chart Reviewed Anesthetic Plan Anesthetic Plan: MAC: Disposition: Standard PACU
[2023-06-10 13:02] VITALS: BP 146/74; PULSE 65; RESP 20; TEMP 36.3; O2SAT 96; BMI 33.6
[2023-06-10 16:04] VITALS: BP 98/60; PULSE 64; RESP 18; TEMP 36.6; O2SAT 96
--- NOTE | 2023-06-10 16:08 | PM.OP ---
Brief Operative Note Date of Service: 06/10/23 Pre-op diagnosis: Screening Post-op diagnosis: other (Polyps) Procedure: Colonoscopy to the cecum with bx/removal of polyps Surgeon: Wally Garcia MD Anesthesia: MAC Was an Lead Inform[employer] Developer used for this Procedure?: No Estimated blood loss (mL): 2.0 Pathology: other (A. Polyp at 50cm B. Polyps at 40cm) Condition: stable Disposition: PACU
[2023-06-10 16:19] VITALS: BP 130/64; PULSE 68; RESP 14; O2SAT 93
[2023-06-10 16:34] VITALS: BP 123/69; PULSE 55; RESP 16; O2SAT 96
[2023-06-10 16:49] VITALS: BP 121/66; PULSE 56; RESP 14; O2SAT 95
[2023-06-10 17:04] VITALS: BP 148/84; PULSE 61; RESP 16; TEMP 36.2; O2SAT 94
--- NOTE | 2023-06-10 18:00 | OP_ITS ---
DATE OF SERVICE: 06/10/2023 SURGEON: Wally Garcia MD INDICATIONS: The patient presents for evaluation of colorectal cancer screening and personal history of tubular adenomas of the colon. Full consent was obtained from him for this, including risks of bleeding and perforation. PREOPERATIVE DIAGNOSIS: POSTOPERATIVE DIAGNOSIS: PROCEDURE PERFORMED: Colonoscopy to the cecum with biopsy and removal of polyps. ESTIMATED BLOOD LOSS: COMPLICATIONS: ANESTHESIA: Medication used; monitored anesthesia care. ASSISTANTS: SPECIMENS: PREOPERATIVE DIAGNOSES: Colorectal cancer screening and personal history of tubular adenomas of the colon. POSTOPERATIVE DIAGNOSES: Colorectal cancer screening and personal history of tubular adenomas of the colon, small colon polyps, diverticulosis, and internal hemorrhoids. DESCRIPTION OF PROCEDURE: The patient was placed in the left lateral decubitus position. The digital rectal exam revealed no abnormalities. The Olympus video pediatric colonoscope was then entered into the rectum and advanced easily to the cecum. Once in the cecum, I did identify normal-appearing cecal pouch with appendiceal orifice and a normal-appearing ileocecal valve. The entire cecum and ileocecal valve appeared normal. There was transillumination of light deep in the right lower quadrant. The scope was slowly withdrawn, assessing all mucosal surfaces carefully. Preparation was excellent. At 50 cm, was a flat less than 5 mm polyp, which was biopsied and completely removed with the cold biopsy forceps. At 40 cm, were 2 less than 5 mm polyps, which were each biopsied and completely removed with the cold biopsy forceps. I did not visualize any other polyps, colitis, or angiodysplasia. There was a mild amount of sigmoid diverticulosis. In the rectum, the scope was retroflexed visualizing internal hemorrhoids, but no other pathology. The rectal mucosa appeared normal. The scope was straightened and withdrawn from the patient. He tolerated the procedure well and was returned to the recovery area in stable condition. IMPRESSION: 1. Small colon polyps, status-post biopsies with removal. 2. Diverticulosis. 3. Internal hemorrhoids. PLAN: The results of the biopsies will be checked. I would recommend a repeat colonoscopy in 5 years for further screening. He was advised not to use any aspirin and NSAIDs for 1 week. He will otherwise see me on a p.r.n. basis. Of note, he was advised to continue a daily stool softener to help avoid constipation and straining in regard to his hernias. This has been discussed with his daughter, Penelope. He will also follow up with his surgeon at [facility] for potential hernia surgery. MD DAWNA Chase/ZORAIDA / [id number]
== END 2023-06-10 17:11 | disposition home or self-care (01) ==
PROVIDERS: PCP Internal Medicine; Visit Provider Internal Medicine
PROC: 0DJD8ZZ Inspection of Lower Intestinal Tract, Via Natural or Artificial Opening Endoscopic (ICD-10-PCS; CPT 45378; principal; 2023-06-10 14:10)
DX: Z12.11 Encounter for screening for malignant neoplasm of colon (principal); D12.5 Benign neoplasm of sigmoid colon; K57.30 Diverticulosis of large intestine without perforation or abscess without bleeding; K64.8 Other hemorrhoids; Z86.010 Personal history of colon polyps; E78.5 Hyperlipidemia, unspecified; Z86.718 Personal history of other venous thrombosis and embolism; Z79.02 Long term (current) use of antithrombotics/antiplatelets
CPT/HCPCS: 45380; 88305; 88313; J2704

== ENCOUNTER 2023-09-07 07:48 | Outpatient (REF) | payer MEDICARE, MEDICAID, SELFPAY ==
[2023-09-07 07:58] LABS: MANUAL DIFF FLAG NO
[2023-09-07 08:33] LABS: Appearance Urine Clear; Color Urine Dark Yellow; Glucose Urine UA Negative (Negative); Leukocyte Esterase Urine Negative (Negative); Nitrite Urine Negative (Negative); PH 5.5 (5.0-9.0); Specific Gravity - Urine 1.015 (1.005-1.025); Urine Blood Negative (Negative); Urine Ketones Trace mg/dL (Negative); Urine Protein Negative (Neg-Trace)
[2023-09-07 08:33] LABS: Basophils Absolute Auto 0.1 X10*3/uL (0.0-0.2); Basophils Percent Auto 1.3 % (0-2); Eosinophils Absolute Auto 0.3 X10*3/uL (0.0-0.4); Eosinophils Percent Auto 5.1 % (0-4); Hematocrit 47.7 % (42.0-52.0); Imm Gran Abs Auto 0.01 X10*3/uL (0.00-0.03); Imm Gran Pct Auto 0.2 % (0.0-0.4); Lymphocytes Percent Auto 37.9 % (20-40); Mean Corpuscular HGB Conc 33.5 g/dl (31.0-36.0); Mean Corpuscular Hemoglobin 30.9 pg (27.0-33.0); Mean Corpuscular Volume 92.3 fL (80.0-98.0); Mean Platelet Volume 9.7 fL (9.4-12.4); Monocytes Absolute Auto 0.8 X10*3/uL (0.1-1.2); Monocytes Percent Auto 14.7 % (2-11); Neutrophils Absolute Auto 2.1 x10*3/uL (2.0-8.3); Neutrophils Percent Auto 40.8 % (45-73); Platelet Count 212 X10*3/uL (160-400); Red Blood Count 5.17 X10*6/uL (4.60-5.80); Red Cell Distribution Width 12.4 % (11.0-16.0); White Blood Count 5.3 X10*3/uL (4.8-10.8)
[2023-09-07 09:09] LABS: Alanine Aminotransferase 61 U/L (0-40); Albumin Level 4.3 g/dL (3.5-5.0); Alkaline Phosphatase 84 U/L (39-117); Anion Gap 12 (12-20); Aspartate Amino Transferase 56 U/L (5-37); Blood Urea Nitrogen 9 mg/dL (9-16); Calcium 9.8 mg/dL (8.4-10.2); Carbon Dioxide 32 mmol/L (22-29); Chloride 104 mmol/L (96-108); Cholesterol 112 mg/dL (<200); Estimated Glomerular Filt Rate > 60; Glucose Fasting 98 mg/dL (60-99); HDL Cholesterol 34 mg/dL (>40); LDL Cholesterol Calculated 63 mg/dL (<100); Potassium 4.5 mmol/L (3.3-5.1); Sodium 143 mmol/L (135-145); Triglycerides 79 mg/dL (<150)
[2023-09-07 09:24] LABS: Vitamin D 25-OH Total 44.1 ng/mL (>30)
== END 2023-09-07 07:49 | disposition home or self-care (01) ==
LOC: HO.LAB 07:48
PROVIDERS: Visit Provider Internal Medicine
DX: E78.00 Pure hypercholesterolemia, unspecified (principal); R30.0 Dysuria; E55.9 Vitamin D deficiency, unspecified; D64.9 Anemia, unspecified
CPT/HCPCS: 36415; 80053; 80061; 81003; 82306; 85025

== ENCOUNTER 2023-09-14 10:27 | Outpatient (AMB) | payer MEDICARE, MEDICAID, SELFPAY ==
[2023-09-14 10:32] VITALS: BP 166/82; PULSE 75; O2SAT 97; BMI 33.7
--- NOTE | 2023-09-14 10:32 | A.OFFPC_ITS ---
Vital Signs 09/14/23 10:32 09/14/23 11:10 Height 5 ft 8.5 in Weight 225 lb BMI 33.7 BP 166/82 H 160/96 H Blood Pressure Location Lt brachial Lt brachial Position Sitting Sitting Pulse 75 Pulse Source Pulse Oximeter Pulse Oximetry (%) 97 Oxygen Delivery Method Room Air Intake Visit Reasons: hyperlipidemia, IFG, lumbar DDD, OA Door Hanger Required: No Allergies No Known Allergies Allergy (Verified 09/14/23 10:47) Medication List - Last Reconciled 09/14/23 by Clifton Ray MD cholecalciferol (vitamin D3) 25 mcg PO DAILY gabapentin 300 mg PO TID [LIGHTWEIGHT ELECTRIC MOTORIZED SCOOTER As directed] niacin 500 mg PO BEDTIME oxycodone-acetaminophen 5-325 mg 1 tab PO Q6H PRN 28 days simvastatin 20 mg PO BEDTIME Tobacco use date assessed: 09/14/23 Fall risk assessment: No Falls in past year Last assessed Fall Risk: 09/14/23 Dental Screening Dental Screen Date: 06/09/23 HPI hyperlipidemia, IFG, lumbar DDD, OA HPI Details Patient comes in today for his follow up visit States that he feels okay He denies any headaches or dizziness Denies any chest pains, no increased SOB but he has been experiencing recurrent nasal drainage and congestion lately - thinks he has allergies He denies any sore throat No nausea/vomiting, no abdominal pain but he continues to experience bilateral inguinal pain No change in bowel habits noted States that his chronic low back pain and joint pains remain adequately con trolled on his current Rx He was seen by surgery at [facility] a few months ago and was advised that he has NO hernia and that his bilateral inguinal pains are a result of some groin strain that he sustained from heavy lifting and that there is no surgical indication and he will just have to let his injuries heal on their own gradually over time He also had a repeat colonoscopy done back in May 2023 - had internal hemorrhoids, diverticulosis and tubular adenoma x 2 and he was recommended to get repeat colonoscopy in 5 years Had his follow up labs done last week - to discuss his results [facility] Medical History (Updated 09/14/23 @ 11:11 by Clifton Ray MD) Hx of rotator cuff tear Back pain Hyperlipidemia Hx of degenerative disc disease DVT (deep venous thrombosis) Internal hemorrhoid Diverticulosis Constipation Urinary frequency Obesity (BMI 30-39.9) GERD without esophagitis Vitamin D deficiency Degenerative arthritis of knee, bilateral Degenerative disc disease, cervical Lumbar degenerative disc disease Impaired fasting glucose Mixed hyperlipidemia Surgical History (Updated 09/14/23 @ 10:57 by Clifton Ray MD) Hx of excision of mass Hx of varicose vein stripping Hx of umbilical hernia repair Hx of foot surgery History of ankle surgery History of esophagogastroduodenoscopy (EGD) History of colonoscopy History of knee replacement procedure of right knee History of knee replacement procedure of left knee Family History Father Cancer Mother Diabetes Social History Housing: House Alcohol intake: never Patient Tobacco Use Status: Former Tobacco user e-Cigarette/Vaping Use: Never Used Second Hand Smoke Exposure: Yes service: No Current occupational status: disabled Cognitive needs: Yes (cane) Hearing needs: No Vision needs: Yes Questionnaire Thrive Questionnaire Date Thrive assessed: 06/09/23 I am a: Patient What is your living situation today?: I have a steady place to live Within the past 12 months, did the food you bought not last and you didn't have the money to get more?: Never true Within the past 12 months, did you worry whether your food would run out before you got money to buy more?: Never true Do you have trouble paying for medicines?: No Do you have trouble getting transportation to medical appointments?: No Do you have trouble paying your heating and electricity bill?: No Do you have trouble taking care of your child, family member or friend?: No Do you have trouble with day-to-day activities such as bathing, preparing meals, shopping, managing finances, etc.?: No Are you currently unemployed and looking for a job?: No Are you interested in more education?: No Please select the resources that you would like help with: None Currently or been in a relationship where the following occur: no concerns reported THRIVE Score: 0 AUDIT C Alcohol Use Questionnaire (AUDIT-C) 1. How often do you have a drink containing alcohol?: Never 3. How often do you have six or more drinks on one occasion?: Never Total Score: 0 Score Reviewed/Action Taken: Yes PHYLLIS-7 AMB Questionnaire PHYLLIS-7 Date PHYLLIS - 7 assessed: 06/09/23 Source: Developed by Drs. Wally Payan, Adrianne Emmanuel, Kian Villavicencio and colleagues, with an educational rolly from [employer]. Review of Systems Const Denies chills, Reports fatigue, Denies fever(s) and Denies headache(s) ENT Denies dysphagia, Denies dizziness, Denies otalgia, Denies headache(s), Reports nasal discharge (recurrent, clear), Reports neck pain (chronic), Denies odynophagia and Denies sore throat Card Denies chest pain, Denies palpitations and Denies dyspnea Resp Denies cough, Denies dyspnea and Denies wheezing GI Details: (+) umbilical hernia and right inguinal hernia Reports abdominal pain (over the inguinal areas - chronic), Reports constipation (on and off), Denies dysphagia, Denies heartburn, Denies diarrhea, Denies nausea, Denies odynophagia and Denies vomiting Details: (+) bilateral inguinal pain Denies hematuria, Reports difficulty urinating (at times), Reports dysuria (at times, over the inguinal and suprapubic areas), Reports urinary frequency and Reports urinary incontinence (occasionally) Musc Reports back pain (over the lumbar spine - chronic), Reports arthralgias (both knees) and Reports neck pain (chronic) Skin/Breast Denies rash Neuro Denies dizziness and Denies headache(s) Endo Reports fatigue and Denies palpitations Aller/Immun Reports seasonal rhinorrhea and Denies wheezing Physical exam (Primary Care) Vital Signs: Last Vital Signs Pulse 75 09/14/23 10:32 BP 166/82 H 09/14/23 10:32 Pulse Ox 97 09/14/23 10:32 Oxygen Delivery Method Room Air 09/14/23 10:32 BMI result Body Mass Index 33.7 Tobacco/Smoking Status: Tobacco use Status Tobacco use date assessed 09/14/23 09/14/23 10:38 Patient Tobacco Use Status Former Tobacco user 09/14/23 10:38 e-Cigarette/Vaping Use Never Used 09/14/23 10:38 Thrive Assessment: Date of Thrive Assessment Date Thrive assessed 06/09/23 09/14/23 10:38 Currently or been in a relationship where the following occur: no concerns reported Const General: no acute distress and alert HENMT Ears: TM's normal bilaterally and EAC's normal General nose exam: Nasal discharge present clear Throat: Yes posterior oropharynx normal and Yes tonsils normal (no TP congestion noted) Neck Neck: Yes no lymphadenopathy Thyroid: Thyroid normal Resp Auscultation: clear to auscultation bilaterally, no rales and no wheezes Cardio Rate: regular rate Rhythm: regular rhythm Heart sounds: no murmurs GI Palpation (GI): Soft to palpation, Tenderness to palpation present (GI) (bilateral inguinal areas) with no rebound tenderness, no guarding, not rigid and Hernia present direct inguinal on the right and umbilical Auscultation: normal bowel sounds Other: (+) bilateral inguinal tenderness, right > left General: Yes no CVA tenderness Back/Spine/Pelvis Back: no CVA tenderness Cervical Spine: Cervical spine tenderness Thoracic/Lumbar Spine: lumbar spinal tenderness (chronic) Skin Rashes: no rashes Extrem General: Yes no clubbing, cyanosis or edema Results Reviewed Results Reviewed: Laboratory Tests 09/07/23 09/07/23 07:57 08:00 WBC 5.3 Hgb 16.0 Hct 47.7 Plt Count 212 Sodium 143 Potassium 4.5 Creatinine 1.04 Estimated GFR > 60 Fasting Glucose 98 Calcium 9.8 D AST 56 H ALT 61 H Triglycerides 79 Cholesterol 112 LDL Cholesterol, Calc 63 HDL Cholesterol 34 L 25-OH Vitamin D Total 44.1 Ur Specific M[place] 1.015 Urine Protein Negative Urine Glucose (UA) Negative Urine Blood Negative Urine Nitrite Negative Ur Leukocyte Esterase Negative Assessment and Plan Assessment & Plan (1) Mixed hyperlipidemia: Code(s): E78.2 - Mixed hyperlipidemia Plan: Results of his labs done last week reviewed and discussed with patient - his cholesterol numbers remain at goal Reinforced low cholesterol diet Continue Simvastatin 20 mg QD and Niaspan ER 500 mg QHS Will recheck his labs and fasting lipids in 3 months for follow up (2) Impaired fasting glucose: Code(s): R73.01 - Impaired fasting glucose Plan: HgbA1c was normal at 5.4% and 5.7% when checked previously; FBS remains normal at 98 mg/dl on his recent labs Reinforced low calorie diet/exercise as tolerated (3) Elevated blood pressure reading without diagnosis of hypertension: Code(s): R03.0 - Elevated blood-pressure reading, without diagnosis of hypertension Plan: Patient is advised that his blood pressure is very high today and this was confirmed on repeat blood pressure testing Reinforced low sodium diet Advised that his BP may be high today as he is in pain and this can raise one's BP He is advised to try monitoring his BP regularly and will also have him follow up with our nurse navigator for a blood pressure check in a couple of weeks (4) Elevated LFTs: Code(s): R79.89 - Other specified abnormal findings of blood chemistry Plan: He is advised that his LFTs have increased again from previous Patient is reminded to avoid taking too much OTC Tylenol or Acetaminophen and reminded also to completely avoid drinking any alcohol Will recheck his LFTs in 3 months for follow up (5) Lumbar degenerative disc disease: Comment: Repeat lumbar spine MRI done on 11/03/2018 revealed (+) mild to moderate multilevel chronic spondylosis of the lumbar spine without associated marked central or foraminal stenosis or evidence of direct nerve root impingement Code(s): M51.36 - Other intervertebral disc degeneration, lumbar region Plan: Reinforced activity and weight-lifting restrictions Continue Gabapentin 300 mg TID and Cyclobenzaprine 10 mg TID PRN (6) Degenerative disc disease, cervical: Comment: Cervical spine MRI in October 2016 revealed a slight increase in his cervical spine spondylosis (multilevel) Repeat cervical spine MRI on 11/03/2018 showed stable appearing multilevel cervical spondylosis; multilevel degenerative changes resulting in varying degrees of moderate to severe foraminal stenosis throughout the cervical spine but there is no severe central canal stenosis. There is bone marrow edema within the left C2 and C3 facets most likely degenerative or inflammatory Code(s): M50.30 - Other cervical disc degeneration, unspecified cervical region Plan: Continue Oxycodone-Acetaminophen 5-325 mg every 6 hours as needed Follow up with neurosurgery (Dr. Keller) as scheduled - was reportedly presented with the option of either repeat cortisone injection (which patient declined) or ACDF, especially if patient's neck symptoms get worse; patient has not yet decided on which option he wants to go with at this time (7) Degenerative arthritis of knee, bilateral: Comment: S/P bilateral knee arthroplasty Code(s): M17.0 - Bilateral primary osteoarthritis of knee Qualifiers: Osteoarthritis type: unspecified Qualified Code(s): M17.0 - Bilateral primary osteoarthritis of knee Plan: S/P bilateral knee arthroplasty - has been doing well since surgery Follow up with orthopedic as scheduled (8) GERD without esophagitis: Code(s): K21.9 - Gastro-esophageal reflux disease without esophagitis Plan: Dietary restrictions reinforced Continue Omeprazole 20 mg QD (9) Allergic rhinitis: Code(s): J30.9 - Allergic rhinitis, unspecified Qualifiers: Allergic rhinitis trigger: pollen Allergic rhinitis seasonality: seasonal Qualified Code(s): J30.1 - Allergic rhinitis due to pollen Plan: Will start patient on Loratadine 10 mg QD PRN (10) Vitamin D deficiency: Code(s): E55.9 - Vitamin D deficiency, unspecified Plan: Continue Vitamin D3 1000 units QD (11) Deep inguinal pain: Comment: Diagnosed as bilateral Inguinal Disruption Code(s): R10.30 - Lower abdominal pain, unspecified Plan: Has been receiving trigger point injections over the inguinal areas from Dr. Steinberg over the past few months with little relief and was referred for pelvic girdle assessment Is now going to [facility] in [place] - to continue following up with urology as scheduled He was also seen by surgery at [facility] a few months ago and was advised that he recently sustained bilateral groin injury that is causing his recent increased pain and advised that he does NOT have any hernias (see HPI) (12) Urinary frequency: Code(s): R35.0 - Frequency of micturition Plan: Follow up with urology as scheduled (13) Umbilical hernia: Code(s): K42.9 - Umbilical hernia without obstruction or gangrene Qualifiers: Obstruction and gangrene presence: without obstruction or gangrene Qualified Code(s): K42.9 - Umbilical hernia without obstruction or gangrene Plan: He has been seen by HOSEA Orlando of [facility] and reportedly had an abdominal US done at [facility] back on 06/06/2023 Will again try to obtain a copy of his US report for review Follow up with [facility] Surgery as scheduled (14) Obesity (BMI 30-39.9): Code(s): E66.9 - Obesity, unspecified Plan: Reinforced diet/exercise as tolerated/lose weight Plan Follow up in 3 months Orders: Orders Complete Blood Count Auto Diff 3 Months D64.9 - Anemia, unspecified Lipid Panel 3 Months E78.00 - Pure hypercholesterolemia, unspecified TSH reflex Free T4 3 Months E78.00 - Pure hypercholesterolemia, unspecified Vitamin D 25-OH Total 3 Months E55.9 - Vitamin D deficiency, unspecified Comprehensive [place]. Panel Fast 3 Months E78.00 - Pure hypercholesterolemia, unspecified UA CC w/rflx Micro + Cult 3 Months R30.0 - Dysuria Hemoglobin A1c 3 Months R73.01 - Impaired fasting glucose Medications: New loratadine 10 mg PO DAILY 90 days PRN 90 tabs 3RF allergy symptoms J30.9 - Allergic rhinitis, unspecified Coding Level of Care Code Est Pt Level 4 (39407) Diagnoses Mixed hyperlipidemia E78.2 Impaired fasting glucose R73.01 Elevated blood pressure reading without diagnosis of hypertension R03.0 Elevated LFTs R79.89 Lumbar degenerative disc disease M51.36 Degenerative disc disease, cervical M50.30 Osteoarthritis of both knees, unspecified osteoarthritis type M17.0 Osteoarthritis type: unspecified GERD without esophagitis K21.9 Seasonal allergic rhinitis due to pollen J30.1 Allergic rhinitis trigger: pollen Allergic rhinitis seasonality: seasonal Vitamin D deficiency E55.9 Deep inguinal pain R10.30 Urinary frequency R35.0 Umbilical hernia without obstruction and without gangrene K42.9 Obstruction and gangrene presence: without obstruction or gangrene Obesity (BMI 30-39.9) E66.9
[2023-09-14 11:10] VITALS: BP 160/96
== END 2023-09-14 11:20 | disposition home or self-care (01) ==
PROVIDERS: PCP Internal Medicine; Visit Provider Internal Medicine
DX: E78.2 Mixed hyperlipidemia (principal); R73.01 Impaired fasting glucose; R03.0 Elevated blood-pressure reading, without diagnosis of hypertension; M51.36 Other intervertebral disc degeneration, lumbar region; M50.30 Other cervical disc degeneration, unspecified cervical region; M17.0 Bilateral primary osteoarthritis of knee; K21.9 Gastro-esophageal reflux disease without esophagitis; J30.1 Allergic rhinitis due to pollen; E55.9 Vitamin D deficiency, unspecified; R10.30 Lower abdominal pain, unspecified; R35.0 Frequency of micturition; K42.9 Umbilical hernia without obstruction or gangrene
CPT/HCPCS: 99214

== ENCOUNTER 2024-01-14 07:45 | Outpatient (REF) | payer MEDICARE, MEDICAID, SELFPAY ==
[2024-01-14 08:13] LABS: MANUAL DIFF FLAG NO
[2024-01-14 08:40] LABS: Basophils Absolute Auto 0.1 X10*3/uL (0.0-0.2); Eosinophils Absolute Auto 0.4 X10*3/uL (0.0-0.4); Eosinophils Percent Auto 7.1 % (0-4); Hematocrit 46.7 % (42.0-52.0); Hemoglobin 15.2 g/dl (14.0-18.0); Imm Gran Abs Auto 0.01 X10*3/uL (0.00-0.03); Imm Gran Pct Auto 0.2 % (0.0-0.4); Lymphocytes Absolute Auto 1.7 X10*3/uL (1.2-4.9); Lymphocytes Percent Auto 35.2 % (20-40); Mean Corpuscular HGB Conc 32.5 g/dl (31.0-36.0); Mean Corpuscular Hemoglobin 30.8 pg (27.0-33.0); Mean Corpuscular Volume 94.7 fL (80.0-98.0); Mean Platelet Volume 9.7 fL (9.4-12.4); Monocytes Absolute Auto 0.6 X10*3/uL (0.1-1.2); Monocytes Percent Auto 12.9 % (2-11); Neutrophils Absolute Auto 2.2 x10*3/uL (2.0-8.3); Neutrophils Percent Auto 43.6 % (45-73); Platelet Count 170 X10*3/uL (160-400); Red Blood Count 4.93 X10*6/uL (4.60-5.80); Red Cell Distribution Width 12.6 % (11.0-16.0)
[2024-01-14 08:54] LABS: Appearance Urine Clear; Color Urine Yellow; Glucose Urine UA Negative (Negative); Leukocyte Esterase Urine Negative (Negative); Nitrite Urine Negative (Negative); Specific Gravity - Urine 1.015 (1.005-1.025); Urine Blood Negative (Negative); Urine Ketones Negative (Negative); Urine Protein Negative (Neg-Trace)
[2024-01-14 08:57] LABS: Estimated Average Glucose 114 mg/dL; Hemoglobin A1c % 5.6 % (<6.0)
[2024-01-14 09:23] LABS: Alanine Aminotransferase 30 U/L (0-40); Alkaline Phosphatase 76 U/L (39-117); Anion Gap 10 (12-20); Aspartate Amino Transferase 35 U/L (5-37); Bilirubin Total 0.6 mg/dL (0.0-1.0); Blood Urea Nitrogen 10 mg/dL (9-16); Calcium 9.1 mg/dL (8.4-10.2); Carbon Dioxide 33 mmol/L (22-29); Chloride 104 mmol/L (96-108); Cholesterol 109 mg/dL (<200); Estimated Glomerular Filt Rate > 60; Glucose Fasting 100 mg/dL (60-99); HDL Cholesterol 36 mg/dL (>40); LDL Cholesterol Calculated 60 mg/dL (<100); Potassium 4.4 mmol/L (3.3-5.1); Sodium 143 mmol/L (135-145); Total Protein 7.5 g/dL (6.5-8.0); Triglycerides 69 mg/dL (<150)
[2024-01-14 09:26] LABS: TSH reflex Free T4 1.27 uIU/mL (0.32-4.0)
== END 2024-01-14 07:46 | disposition home or self-care (01) ==
LOC: HO.LAB 07:45
PROVIDERS: PCP Internal Medicine; Visit Provider Internal Medicine
DX: D64.9 Anemia, unspecified (principal); E78.00 Pure hypercholesterolemia, unspecified; R30.0 Dysuria; R73.01 Impaired fasting glucose; E55.9 Vitamin D deficiency, unspecified
CPT/HCPCS: 36415; 80053; 80061; 81003; 82306; 83036; 84443; 85025

== ENCOUNTER 2024-01-18 10:45 | Outpatient (AMB) | payer MEDICARE, MEDICAID, SELFPAY ==
[2024-01-18 10:53] VITALS: BP 130/74; PULSE 62; O2SAT 94; BMI 33.4
--- NOTE | 2024-01-18 10:53 | MHC.PC.OV ---
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 Accompanied by: Self / Same As Patient Allergies No Known Allergies Allergy (Verified 01/18/24 11:23) Medication List - Last Reconciled 01/18/24 by Clifton Ray MD cholecalciferol (vitamin D3) 25 mcg PO DAILY gabapentin 300 mg PO TID [LIGHTWEIGHT ELECTRIC MOTORIZED SCOOTER As directed] loratadine 10 mg PO DAILY PRN 90 days niacin 500 mg PO BEDTIME oxycodone-acetaminophen 5-325 mg 1 tab PO Q6H PRN 28 days simvastatin 20 mg PO BEDTIME Tobacco use date assessed: 01/18/24 Fall risk assessment: No Falls in past year Last assessed Fall Risk: 01/18/24 Dental Screening Dental Screen Date: 01/18/24 Did you have a dental visit in the last 12 months?: No Did you have a dental problem in the last 6 months where you did not have access to dental care?: No Was dental information given to patient?: No HPI hyper, IFG, elevated BP, lumbar DDD/chronic pain HPI Details Patient comes in today for his follow up visit States that he feels okay He denies any headaches or dizziness Denies any chest pains, no increased SOB No nausea/vomiting; he continues to experience bilateral inguinal pain but states that these have lessened somewhat in severity over the past few months No increased abdominal pain lately and no change in bowel habits noted States that his chronic low back pain and joint pains remain adequately controlled on his current Rx He had his follow up labs done a few days ago - to discuss his results [facility] Medical History Hx of rotator cuff tear Back pain Hyperlipidemia Hx of degenerative disc disease DVT (deep venous thrombosis) Internal hemorrhoid Diverticulosis Constipation Urinary frequency Obesity (BMI 30-39.9) GERD without esophagitis Vitamin D deficiency Degenerative arthritis of knee, bilateral Degenerative disc disease, cervical Lumbar degenerative disc disease Impaired fasting glucose Mixed hyperlipidemia Surgical History Hx of excision of mass Hx of varicose vein stripping Hx of umbilical hernia repair Hx of foot surgery History of ankle surgery History of esophagogastroduodenoscopy (EGD) History of colonoscopy History of knee replacement procedure of right knee History of knee replacement procedure of left knee Family History Father Cancer Mother Diabetes Social History Housing: House Alcohol intake: never Patient Tobacco Use Status: Former Tobacco user e-Cigarette/Vaping Use: Never Used Second Hand Smoke Exposure: Yes service: No Current occupational status: disabled Cognitive needs: Yes (cane) Hearing needs: No Vision needs: Yes Questionnaire PHQ-9 Over the last 2 weeks, how often have you been bothered by any of the following problems? 1. Little interest or pleasure in doing things: not at all 2. Feeling down, depressed, or hopeless: not at all 3. Trouble falling or staying asleep, or sleeping too much: not at all 4. Feeling tired or having little energy: not at all 5. Poor appetite or overeating: not at all 6. Feeling bad about yourself - or that you are a failure or have let yourself or your family down: not at all 7. Trouble concentrating on things, such as reading the newspaper or watching television: not at all 8. Moving or speaking so slowly that other people could have noticed. Or the opposite - being so fidgety or restless that you have been moving around a lot more than usual: not at all 9. Thoughts that you would be better off or of hurting yourself in some way: not at all Total score: 0 Depression Screening Interpretation: Negative Depression Screening Done: Yes 14392 - PHQ-9 Billing: Yes Source: Developed by Drs. Wally Payan, Adrianne Emmanuel, Kian Villavicencio and colleagues, with an educational rolly from [employer]. Thrive Questionnaire Date Thrive assessed: 01/18/24 I am a: Patient What is your living situation today?: I have a steady place to live Within the past 12 months, did the food you bought not last and you didn't have the money to get more?: Never true Within the past 12 months, did you worry whether your food would run out before you got money to buy more?: Never true Do you have trouble paying for medicines?: No Do you have trouble getting transportation to medical appointments?: No Do you have trouble paying your heating and electricity bill?: No Do you have trouble taking care of your child, family member or friend?: No Do you have trouble with day-to-day activities such as bathing, preparing meals, shopping, managing finances, etc.?: No Are you currently unemployed and looking for a job?: Yes Are you interested in more education?: No Please select the resources that you would like help with: None Currently or been in a relationship where the following occur: No concerns reported THRIVE Score: 0 AUDIT C Alcohol Use Questionnaire (AUDIT-C) 1. How often do you have a drink containing alcohol?: Never 3. How often do you have six or more drinks on one occasion?: Never Total Score: 0 Score Reviewed/Action Taken: Yes PHYLLIS-7 AMB Questionnaire PHYLLIS-7 Date PHYLLIS - 7 assessed: 01/18/24 Feeling nervous, anxious, or on edge: 0 = Not at all Not being able to stop or control worryin = Not at all Worrying too much about different things: 0 = Not at all Trouble relaxin = Not at all Being so restless that it is hard to sit still: 0 = Not at all Becoming easily annoyed or irritable: 0 = Not at all Feeling afraid as if something awful might happen: 0 = Not at all Total PHYLLIS-7 score (0-4 normal; 5-9 mild; 10-14 moderate; 15-21 severe): 0 Source: Developed by Drs. Wally Payan, Adrianne Emmanuel, Kian Villavicencio and colleagues, with an educational rolly from [employer]. Review of Systems Const Denies chills, Reports fatigue, Denies fever(s) and Denies headache(s) ENT Denies dysphagia, Denies dizziness, Denies otalgia, Denies headache(s), Reports neck pain (chronic), Denies odynophagia and Denies sore throat Card Denies chest pain, Denies palpitations and Denies dyspnea Resp Denies cough, Denies dyspnea and Denies wheezing GI Details: (+) umbilical hernia and right inguinal hernia Reports abdominal pain (over the inguinal areas - chronic), Reports constipation (on and off), Denies dysphagia, Denies heartburn, Denies diarrhea, Denies nausea, Denies odynophagia and Denies vomiting Details: (+) bilateral inguinal pain Denies hematuria, Reports difficulty urinating (at times), Reports dysuria (at times, over the inguinal and suprapubic areas), Reports urinary frequency and Reports urinary incontinence (occasionally) Musc Reports back pain (over the lumbar spine - chronic), Reports arthralgias (both knees) and Reports neck pain (chronic) Skin/Breast Denies rash Neuro Denies dizziness and Denies headache(s) Endo Reports fatigue and Denies palpitations Aller/Immun Reports seasonal rhinorrhea and Denies wheezing Physical exam (Primary Care) Vital Signs: Last Vital Signs Pulse 62 01/18/24 10:53 BP 130/74 01/18/24 10:53 Pulse Ox 94 01/18/24 10:53 Oxygen Delivery Method Room Air 01/18/24 10:53 BMI result Body Mass Index 33.4 Tobacco/Smoking Status: Tobacco use Status Tobacco use date assessed 01/18/24 01/18/24 10:59 Patient Tobacco Use Status Former Tobacco user 01/18/24 10:59 e-Cigarette/Vaping Use Never Used 01/18/24 10:59 PHQ-9: PHQ-9 Score PHQ-9: Total score 0 01/18/24 10:59 Depression Screening Interpretation: Negative Thrive Assessment: Date of Thrive Assessment Date Thrive assessed 01/18/24 01/18/24 10:59 Currently or been in a relationship where the following occur: No concerns reported Const General: no acute distress and alert HENMT Ears: TM's normal bilaterally and EAC's normal Throat: Yes posterior oropharynx normal and Yes tonsils normal (no TP congestion noted) Neck Neck: Yes no lymphadenopathy Thyroid: Thyroid normal Resp Auscultation: clear to auscultation bilaterally, no rales and no wheezes Cardio Rate: regular rate Rhythm: regular rhythm Heart sounds: no murmurs GI Palpation (GI): Soft to palpation, Tenderness to palpation present (GI) (bilateral inguinal areas) with no rebound tenderness, no guarding and Hernia present (small) umbilical Auscultation: normal bowel sounds Other: (+) bilateral inguinal tenderness, right > left General: Yes no CVA tenderness Back/Spine/Pelvis Back: no CVA tenderness Cervical Spine: Cervical spine tenderness Thoracic/Lumbar Spine: lumbar spinal tenderness (chronic) Skin Rashes: no rashes Extrem General: Yes no clubbing, cyanosis or edema Results Reviewed Results Reviewed: Laboratory Tests 01/14/24 01/14/24 08:11 08:12 WBC 5.0 Hgb 15.2 Hct 46.7 Plt Count 170 Sodium 143 Potassium 4.4 Creatinine 1.04 Estimated GFR > 60 Fasting Glucose 100 H Hemoglobin A1c % 5.6 Calcium 9.1 D AST 35 ALT 30 Triglycerides 69 Cholesterol 109 LDL Cholesterol, Calc 60 HDL Cholesterol 36 L 25-OH Vitamin D Total 37.0 TSH 1.27 Ur Specific [place] 1.015 Urine Protein Negative Urine Glucose (UA) Negative Urine Blood Negative Urine Nitrite Negative Ur Leukocyte Esterase Negative Assessment and Plan Assessment & Plan (1) Mixed hyperlipidemia: Code(s): E78.2 - Mixed hyperlipidemia Plan: Results of his labs done a few days ago reviewed and discussed with patient - his cholesterol numbers remain at goal Reinforced low cholesterol diet Continue Simvastatin 20 mg QD and Niaspan ER 500 mg QHS Will recheck his labs and fasting lipids in 3 months for follow up (2) Impaired fasting glucose: Code(s): R73.01 - Impaired fasting glucose Plan: His HgbA1c was normal at 5.6% on his recent labs; was also normal at 5.4% and 5.7% when previously checked; his FBS was at 100 mg/dl on his recent labs Reinforced low calorie diet/exercise as tolerated (3) Elevated blood pressure reading without diagnosis of hypertension: Code(s): R03.0 - Elevated blood-pressure reading, without diagnosis of hypertension Plan: His blood pressure appears much better today compared to his last visit's Reinforced low sodium diet He is reminded to continue monitoring his BP regularly (4) Elevated LFTs: Code(s): R79.89 - Other specified abnormal findings of blood chemistry Plan: His LFTs are now back to normal on his recent labs - were both elevated at his last visit Patient is reminded to avoid taking too much OTC Tylenol or Acetaminophen and reminded also to completely avoid drinking any alcohol Will recheck his LFTs in 3 months for follow up (5) Lumbar degenerative disc disease: Comment: Repeat lumbar spine MRI done on 11/03/2018 revealed (+) mild to moderate multilevel chronic spondylosis of the lumbar spine without associated marked central or foraminal stenosis or evidence of direct nerve root impingement Code(s): M51.36 - Other intervertebral disc degeneration, lumbar region Plan: Reinforced activity and weight-lifting restrictions Continue Gabapentin 300 mg TID and Cyclobenzaprine 10 mg TID PRN (6) Degenerative disc disease, cervical: Comment: Cervical spine MRI in October 2016 revealed a slight increase in his cervical spine spondylosis (multilevel) Repeat cervical spine MRI on 11/03/2018 showed stable appearing multilevel cervical spondylosis; multilevel degenerative changes resulting in varying degrees of moderate to severe foraminal stenosis throughout the cervical spine but there is no severe central canal stenosis. There is bone marrow edema within the left C2 and C3 facets most likely degenerative or inflammatory Code(s): M50.30 - Other cervical disc degeneration, unspecified cervical region Plan: Continue Oxycodone-Acetaminophen 5-325 mg every 6 hours as needed Follow up with neurosurgery (Dr. Keller) as scheduled - was reportedly presented with the option of either repeat cortisone injection (which patient declined) or ACDF, especially if patient's neck symptoms get worse; patient has been unable to decide which option he wants to go with (7) Degenerative arthritis of knee, bilateral: Comment: S/P bilateral knee arthroplasty Code(s): M17.0 - Bilateral primary osteoarthritis of knee Qualifiers: Osteoarthritis type: unspecified Qualified Code(s): M17.0 - Bilateral primary osteoarthritis of knee Plan: S/P bilateral knee arthroplasty - has been doing well mostly since surgery Follow up with orthopedic as scheduled (8) GERD without esophagitis: Code(s): K21.9 - Gastro-esophageal reflux disease without esophagitis Plan: Dietary restrictions reinforced Continue Omeprazole 20 mg QD (9) Allergic rhinitis: Code(s): J30.9 - Allergic rhinitis, unspecified Qualifiers: Allergic rhinitis trigger: pollen Allergic rhinitis seasonality: seasonal Qualified Code(s): J30.1 - Allergic rhinitis due to pollen Plan: Continue Loratadine 10 mg QD PRN (10) Vitamin D deficiency: Code(s): E55.9 - Vitamin D deficiency, unspecified Plan: Continue Vitamin D3 1000 units QD (11) Deep inguinal pain: Comment: Diagnosed as bilateral Inguinal Disruption Code(s): R10.30 - Lower abdominal pain, unspecified Plan: Has been receiving trigger point injections over the inguinal areas from Dr. Steinberg over the past few months with little relief and was referred for pelvic girdle assessment Is now going to [facility] in [place] - to continue following up with urology as scheduled He was also seen by surgery at [facility] a few months ago and was advised that he recently sustained bilateral groin injury that is causing his recent increased pain and advised that he does NOT have any hernias (12) Urinary frequency: Code(s): R35.0 - Frequency of micturition Plan: Follow up with urology as scheduled (13) Umbilical hernia: Code(s): K42.9 - Umbilical hernia without obstruction or gangrene Qualifiers: Obstruction and gangrene presence: without obstruction or gangrene Qualified Code(s): K42.9 - Umbilical hernia without obstruction or gangrene Plan: He has been seen by HOSEA Orlando of [facility] for this Was advised corrective surgery on an elective basis - he was advised to call when he is ready to have surgery done Follow up with [facility] as scheduled (14) Obesity (BMI 30-39.9): Code(s): E66.9 - Obesity, unspecified Plan: Reinforced diet/exercise as tolerated/lose weight Plan Follow up in 3 months Orders: Orders Comprehensive [place]. Panel Fast 3 Months E78.00 - Pure hypercholesterolemia, unspecified Lipid Panel 3 Months E78.00 - Pure hypercholesterolemia, unspecified UA CC w/rflx Micro + Cult 3 Months R30.0 - Dysuria Complete Blood Count Auto Diff 3 Months D64.9 - Anemia, unspecified TSH reflex Free T4 3 Months E78.00 - Pure hypercholesterolemia, unspecified Vitamin D 25-OH Total 3 Months E55.9 - Vitamin D deficiency, unspecified Coding Level of Care Code Est Pt Level 4 (83740) Complex EM visit Add On G2211 Diagnoses Mixed hyperlipidemia E78.2 Impaired fasting glucose R73.01 Elevated blood pressure reading without diagnosis of hypertension R03.0 Elevated LFTs R79.89 Lumbar degenerative disc disease M51.36 Degenerative disc disease, cervical M50.30 Osteoarthritis of both knees, unspecified osteoarthritis type M17.0 Osteoarthritis type: unspecified GERD without esophagitis K21.9 Seasonal allergic rhinitis due to pollen J30.1 Allergic rhinitis trigger: pollen Allergic rhinitis seasonality: seasonal Vitamin D deficiency E55.9 Deep inguinal pain R10.30 Urinary frequency R35.0 Umbilical hernia without obstruction and without gangrene K42.9 Obstruction and gangrene presence: without obstruction or gangrene Obesity (BMI 30-39.9) E66.9
== END 2024-01-18 11:44 | disposition home or self-care (01) ==
PROVIDERS: PCP Internal Medicine; Visit Provider Internal Medicine
DX: E78.2 Mixed hyperlipidemia (principal); R73.01 Impaired fasting glucose; R03.0 Elevated blood-pressure reading, without diagnosis of hypertension; M51.36 Other intervertebral disc degeneration, lumbar region; M50.30 Other cervical disc degeneration, unspecified cervical region; M17.0 Bilateral primary osteoarthritis of knee; K21.9 Gastro-esophageal reflux disease without esophagitis; J30.1 Allergic rhinitis due to pollen; E55.9 Vitamin D deficiency, unspecified; R10.30 Lower abdominal pain, unspecified; R35.0 Frequency of micturition

== ENCOUNTER → 2024-01-18 10:45 | Outpatient (BNVA) | payer MEDICARE, MEDICAID, SELFPAY | PROVIDERS: PCP Internal Medicine; Visit Provider Internal Medicine | DX: E78.2 Mixed hyperlipidemia (principal); R73.01 Impaired fasting glucose; R03.0 Elevated blood-pressure reading, without diagnosis of hypertension; R79.89 Other specified abnormal findings of blood chemistry; M51.36 Other intervertebral disc degeneration, lumbar region; M50.30 Other cervical disc degeneration, unspecified cervical region; M17.0 Bilateral primary osteoarthritis of knee; K21.9 Gastro-esophageal reflux disease without esophagitis; E55.9 Vitamin D deficiency, unspecified | CPT/HCPCS: 99212 ==

== ENCOUNTER 2024-04-12 10:21 | Outpatient (REF) | payer MEDICARE, MEDICAID, SELFPAY ==
[2024-04-12 10:42] LABS: MANUAL DIFF FLAG NO
[2024-04-12 11:15] LABS: Basophils Absolute Auto 0.1 X10*3/uL (0.0-0.2); Eosinophils Absolute Auto 0.2 X10*3/uL (0.0-0.4); Eosinophils Percent Auto 2.6 % (0-4); Hemoglobin 15.2 g/dl (14.0-18.0); Imm Gran Abs Auto 0.05 X10*3/uL (0.00-0.03); Imm Gran Pct Auto 0.7 % (0.0-0.4); Lymphocytes Percent Auto 28.7 % (20-40); Mean Corpuscular Hemoglobin 30.5 pg (27.0-33.0); Mean Corpuscular Volume 92.4 fL (80.0-98.0); Mean Platelet Volume 9.8 fL (9.4-12.4); Monocytes Absolute Auto 0.8 X10*3/uL (0.1-1.2); Monocytes Percent Auto 11.2 % (2-11); Neutrophils Absolute Auto 3.9 x10*3/uL (2.0-8.3); Neutrophils Percent Auto 55.8 % (45-73); Platelet Count 199 X10*3/uL (160-400); Red Blood Count 4.98 X10*6/uL (4.60-5.80); Red Cell Distribution Width 12.2 % (11.0-16.0)
[2024-04-12 12:00] LABS: Alanine Aminotransferase 39 U/L (0-40); Albumin Level 4.2 g/dL (3.5-5.0); Alkaline Phosphatase 66 U/L (39-117); Anion Gap 7 (12-20); Aspartate Amino Transferase 54 U/L (5-37); Bilirubin Total 1.2 mg/dL (0.0-1.0); Blood Urea Nitrogen 7 mg/dL (9-16); Calcium 9.5 mg/dL (8.4-10.2); Carbon Dioxide 34 mmol/L (22-29); Chloride 106 mmol/L (96-108); Cholesterol 107 mg/dL (<200); Estimated Glomerular Filt Rate > 60; Glucose Fasting 94 mg/dL (60-99); HDL Cholesterol 32 mg/dL (>40); LDL Cholesterol Calculated 59 mg/dL (<100); Potassium 4.4 mmol/L (3.3-5.1); Sodium 143 mmol/L (135-145); Total Protein 8.1 g/dL (6.5-8.0); Triglycerides 83 mg/dL (<150)
[2024-04-12 12:18] LABS: TSH reflex Free T4 1.08 uIU/mL (0.32-4.0); Vitamin D 25-OH Total 40.1 ng/mL (>30)
[2024-04-12 13:42] LABS: Appearance Urine Clear; Color Urine Yellow; Glucose Urine UA Negative (Negative); Leukocyte Esterase Urine Negative (Negative); Nitrite Urine Negative (Negative); PH 5.5 (5.0-9.0); Specific Gravity - Urine 1.015 (1.005-1.025); Urine Blood Negative (Negative); Urine Ketones Negative (Negative); Urine Protein Negative (Neg-Trace)
== END 2024-04-12 10:22 | disposition home or self-care (01) ==
LOC: HO.LAB 10:21
PROVIDERS: PCP Internal Medicine; Visit Provider Internal Medicine
DX: D64.9 Anemia, unspecified (principal); E78.00 Pure hypercholesterolemia, unspecified; R30.0 Dysuria; E55.9 Vitamin D deficiency, unspecified
CPT/HCPCS: 36415; 80053; 80061; 81003; 82306; 84443; 85025

== ENCOUNTER 2024-04-19 10:38 | Outpatient (AMB) | payer MEDICARE, MEDICAID, SELFPAY ==
[2024-04-19 10:41] VITALS: BP 136/72; PULSE 85; O2SAT 94; BMI 33.7
--- NOTE | 2024-04-19 10:41 | A.OFFPC_ITS ---
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: No Accompanied by: Self / Same As Patient Allergies No Known Allergies Allergy (Verified 04/19/24 10:57) Medication List - Last Reconciled 04/19/24 by Clifton Ray MD cholecalciferol (vitamin D3) 25 mcg PO DAILY gabapentin 300 mg PO TID [LIGHTWEIGHT ELECTRIC MOTORIZED SCOOTER As directed] loratadine 10 mg PO DAILY PRN 90 days niacin 500 mg PO BEDTIME oxycodone-acetaminophen 5-325 mg 1 tab PO Q6H PRN 28 days simvastatin 20 mg PO BEDTIME Tobacco use date assessed: 04/19/24 Fall risk assessment: No Falls in past year Last assessed Fall Risk: 04/19/24 Dental Screening Dental Screen Date: 04/19/24 Did you have a dental visit in the last 12 months?: No Did you have a dental problem in the last 6 months where you did not have access to dental care?: No Was dental information given to patient?: No HPI 3mth f/u HPI Details Patient comes in today for his follow up visit States that he feels okay but reports that he has been experiencing a recurrent dry cough for the past 2-3 weeks now Feels that his cough is worse at night and notes that his chest feels tight and congested at times lately He denies any fever or sore throat; denies any headaches or dizziness Denies any chest pains; relates (+) mild SOB at times when his chest feels tight No nausea/vomiting, still has (chronic) soreness over his inguinal areas on both sides but no increased abdominal pain lately No change in bowel habits noted States that his chronic low back pain and joint pains remain adequately controlled on his current Rx He is requesting for a referral to see vascular surgery at [facility] as he has some varicose veins on both of his legs that are starting to hurt and bother him recently He had his follow up labs done last week - to discuss his results [facility] Medical History (Updated 04/20/24 @ 05:25 by Clifton Ray MD) Varicose veins of bilateral lower extremities with pain Hx of rotator cuff tear Back pain Hyperlipidemia Hx of degenerative disc disease DVT (deep venous thrombosis) Internal hemorrhoid Diverticulosis Constipation Urinary frequency Obesity (BMI 30-39.9) GERD without esophagitis Vitamin D deficiency Degenerative arthritis of knee, bilateral Degenerative disc disease, cervical Lumbar degenerative disc disease Impaired fasting glucose Mixed hyperlipidemia Surgical History Hx of excision of mass Hx of varicose vein stripping Hx of umbilical hernia repair Hx of foot surgery History of ankle surgery History of esophagogastroduodenoscopy (EGD) History of colonoscopy History of knee replacement procedure of right knee History of knee replacement procedure of left knee Family History Father Cancer Mother Diabetes Social History Housing: House Alcohol intake: never Patient Tobacco Use Status: Former Tobacco user e-Cigarette/Vaping Use: Never Used Second Hand Smoke Exposure: Yes service: No Current occupational status: disabled Cognitive needs: Yes (cane) Hearing needs: No Vision needs: Yes Questionnaire PHQ-9 Over the last 2 weeks, how often have you been bothered by any of the following problems? 1. Little interest or pleasure in doing things: not at all 2. Feeling down, depressed, or hopeless: not at all 3. Trouble falling or staying asleep, or sleeping too much: not at all 4. Feeling tired or having little energy: not at all 5. Poor appetite or overeating: not at all 6. Feeling bad about yourself - or that you are a failure or have let yourself or your family down: not at all 7. Trouble concentrating on things, such as reading the newspaper or watching television: not at all 8. Moving or speaking so slowly that other people could have noticed. Or the opposite - being so fidgety or restless that you have been moving around a lot more than usual: not at all 9. Thoughts that you would be better off or of hurting yourself in some way: not at all Total score: 0 Depression Screening Interpretation: Negative Depression Screening Done: Yes 61517 - PHQ-9 Billing: Yes Source: Developed by Drs. Wally Payan, Adrianne Emmanuel, Kian Villavicencio and colleagues, with an educational rolly from [employer]. Thrive Questionnaire Date Thrive assessed: 04/19/24 I am a: Patient What is your living situation today?: I have a steady place to live Within the past 12 months, did the food you bought not last and you didn't have the money to get more?: Never true Within the past 12 months, did you worry whether your food would run out before you got money to buy more?: Never true Do you have trouble paying for medicines?: No Do you have trouble getting transportation to medical appointments?: No Do you have trouble paying your heating and electricity bill?: No Do you have trouble taking care of your child, family member or friend?: No Do you have trouble with day-to-day activities such as bathing, preparing meals, shopping, managing finances, etc.?: No Are you currently unemployed and looking for a job?: Yes Are you interested in more education?: No Please select the resources that you would like help with: None Currently or been in a relationship where the following occur: No concerns reported THRIVE Score: 0 AUDIT C Alcohol Use Questionnaire (AUDIT-C) 1. How often do you have a drink containing alcohol?: Never 3. How often do you have six or more drinks on one occasion?: Never Total Score: 0 Score Reviewed/Action Taken: Yes PHYLLIS-7 AMB Questionnaire PHYLLIS-7 Date PHYLLIS - 7 assessed: 04/19/24 Feeling nervous, anxious, or on edge: 0 = Not at all Not being able to stop or control worryin = Not at all Worrying too much about different things: 0 = Not at all Trouble relaxin = Not at all Being so restless that it is hard to sit still: 0 = Not at all Becoming easily annoyed or irritable: 0 = Not at all Feeling afraid as if something awful might happen: 0 = Not at all Total PHYLLIS-7 score (0-4 normal; 5-9 mild; 10-14 moderate; 15-21 severe): 0 Source: Developed by Adrianne Cook Kurt Kroenke and colleagues, with an educational rolly from [employer]. Review of Systems Const Denies chills, Reports fatigue, Denies fever(s) and Denies headache(s) ENT Denies dysphagia, Denies dizziness, Denies otalgia, Denies headache(s), Reports neck pain (chronic), Denies odynophagia and Denies sore throat Card Denies chest pain, Denies palpitations and Reports dyspnea (mild, on and off - mostly when his chest feels tight and is coughing) Resp Reports chest congestion (at times; chest feels tight on and off lately), Reports cough (recurrent, non-productive; feels worse at night), Reports dyspnea (mild, on and off - mostly when his chest feels tight and is coughing) and Denies wheezing GI Details: (+) umbilical hernia and right inguinal hernia Reports abdominal pain (over the inguinal areas - chronic), Reports constipation (on and off), Denies dysphagia, Denies heartburn, Denies diarrhea, Denies nausea, Denies odynophagia and Denies vomiting Details: (+) bilateral inguinal pain Denies hematuria, Reports difficulty urinating (at times), Reports dysuria (at times, over the inguinal and suprapubic areas), Reports urinary frequency and Reports urinary incontinence (occasionally) Musc Reports back pain (over the lumbar spine - chronic), Reports arthralgias (both knees) and Reports neck pain (chronic) Skin/Breast Denies rash Neuro Denies dizziness and Denies headache(s) Endo Reports fatigue and Denies palpitations Quintin/Lymph Details: (+) varicose veins over both lower extremities, with on and off pain lately Aller/Immun Reports seasonal rhinorrhea and Denies wheezing Physical exam (Primary Care) Vital Signs: Last Vital Signs Pulse 85 04/19/24 10:41 BP 136/72 04/19/24 10:41 Pulse Ox 94 04/19/24 10:41 Oxygen Delivery Method Room Air 04/19/24 10:41 BMI result Body Mass Index 33.7 Tobacco/Smoking Status: Tobacco use Status Tobacco use date assessed 04/19/24 04/19/24 10:45 Patient Tobacco Use Status Former Tobacco user 04/19/24 10:45 e-Cigarette/Vaping Use Never Used 04/19/24 10:45 PHQ-9: PHQ-9 Score PHQ-9: Total score 0 04/19/24 11:16 Depression Screening Interpretation: Negative Thrive Assessment: Date of Thrive Assessment Date Thrive assessed 04/19/24 04/19/24 10:45 Currently or been in a relationship where the following occur: No concerns reported Const General: no acute distress and alert HENMT Ears: TM's normal bilaterally and EAC's normal Throat: Yes posterior oropharynx normal and Yes tonsils normal (no TP congestion noted) Neck Neck: Yes no lymphadenopathy Thyroid: Thyroid normal Resp Auscultation: no rales, rhonchi (scattered ) throughout, no wheezes and diminished lung sounds bilateral Cardio Rate: regular rate Rhythm: regular rhythm Heart sounds: no murmurs GI Palpation (GI): Soft to palpation, nontender, no guarding, Hernia present (small) umbilical and No Rebound tenderness present Auscultation: normal bowel sounds Other: (+) bilateral inguinal tenderness, right > left General: Yes no CVA tenderness Back/Spine/Pelvis Back: no CVA tenderness Cervical Spine: Cervical spine tenderness Thoracic/Lumbar Spine: lumbar spinal tenderness (chronic) Skin Rashes: no rashes Extrem Other: (+) prominent varicosities over both lower extremities - some of these are slightly tender on deep palpation General: Yes no clubbing, cyanosis or edema Immunizations tetanus-diphtheria toxoids-Td 2 Lf unit-2 Lf unit/0.5 mL IM suspension Performing Provider: Clifton Ray MD [facility] Administered by: MARITZA George on 04/19/24 11:16 Dose Route Admin Location Dispensed Lot Number Expiration Date [facility] B[employer] 0.5 mL IM Left Deltoid 0.5 mL [id number] 06/04/24 [id number] [employer] VIS Given Date VIS Provided VIS Publication Date 04/19/24 Single Vaccine 20 Eligibility Eligibility Date Funding Source Not [facility] Eligible 04/19/24 State funds Results Reviewed Results Reviewed: Laboratory Tests 04/12/24 04/12/24 10:36 10:40 WBC 7.0 Hgb 15.2 Hct 46.0 Plt Count 199 Sodium 143 Potassium 4.4 Creatinine 0.91 Estimated GFR > 60 Fasting Glucose 94 Calcium 9.5 AST 54 H ALT 39 Triglycerides 83 Cholesterol 107 LDL Cholesterol, Calc 59 HDL Cholesterol 32 L 25-OH Vitamin D Total 40.1 TSH 1.08 Ur Specific [place] 1.015 Urine Protein Negative Urine Glucose (UA) Negative Urine Blood Negative Urine Nitrite Negative Ur Leukocyte Esterase Negative Coding Level of Care Code Est Pt Level 4 (84069) Complex EM visit Add On G2211 Diagnoses Mixed hyperlipidemia E78.2 Impaired fasting glucose R73.01 Elevated blood pressure reading without diagnosis of hypertension R03.0 Elevated LFTs R79.89 Degeneration of intervertebral disc of lumbar region with discogenic back pain M51.360 Disc-related pain type: discogenic back pain only Degenerative disc disease, cervical M50.30 Osteoarthritis of both knees, unspecified osteoarthritis type M17.0 Osteoarthritis type: unspecified GERD without esophagitis K21.9 Seasonal allergic rhinitis due to pollen J30.1 Allergic rhinitis trigger: pollen Allergic rhinitis seasonality: seasonal Vitamin D deficiency E55.9 Deep inguinal pain R10.30 Urinary frequency R35.0 Umbilical hernia without obstruction and without gangrene K42.9 Obstruction and gangrene presence: without obstruction or gangrene Bronchitis J40 Varicose veins of bilateral lower extremities with pain I83.813 Obesity (BMI 30-39.9) E66.9 Additional Codes PHQ-9 - 44756 - PHQ-9 Billing: Yes ([id number]) Assessment & Plan Assessment & Plan (1) Mixed hyperlipidemia: Code(s): E78.2 - Mixed hyperlipidemia Category: Medical Plan: Results of his labs done last week reviewed and discussed with patient Reinforced low cholesterol diet Continue Simvastatin 20 mg QD and Niaspan ER 500 mg QHS Will recheck his labs and fasting lipids in 3 months for follow up (2) Impaired fasting glucose: Code(s): R73.01 - Impaired fasting glucose Category: Medical Plan: His HgbA1c was normal at 5.6%, 5.4% and 5.7% when previously checked; his FBS was normal now at 94 mg/dl on his recent labs Reinforced low calorie diet/exercise as tolerated (3) Elevated blood pressure reading without diagnosis of hypertension: Code(s): R03.0 - Elevated blood-pressure reading, without diagnosis of hypertension Category: Medical Plan: His blood pressure reading today is acceptable Reinforced low sodium diet He is reminded to continue monitoring his BP regularly (4) Elevated LFTs: Code(s): R79.89 - Other specified abnormal findings of blood chemistry Category: Medical Plan: His serum AST is slightly elevated again; ALT is normal Patient is reminded again to avoid taking too much OTC Tylenol or Acetaminophen and to completely avoid drinking any alcohol Will recheck his LFTs in 3 months for follow up (5) Lumbar degenerative disc disease: Comment: Repeat lumbar spine MRI done on 11/03/2018 revealed (+) mild to moderate multilevel chronic spondylosis of the lumbar spine without associated marked central or foraminal stenosis or evidence of direct nerve root impingement Code(s): M51.36 - Other intervertebral disc degeneration, lumbar region Category: Medical Qualifiers: Disc-related pain type: discogenic back pain only Qualified Code(s): M51.360 - Other intervertebral disc degeneration, lumbar region with discogenic back pain only Plan: Reinforced activity and weight-lifting restrictions Continue Gabapentin 300 mg TID and Cyclobenzaprine 10 mg TID PRN (6) Degenerative disc disease, cervical: Comment: Cervical spine MRI in October 2016 revealed a slight increase in his cervical spine spondylosis (multilevel) Repeat cervical spine MRI on 11/03/2018 showed stable appearing multilevel cervical spondylosis; multilevel degenerative changes resulting in varying degrees of moderate to severe foraminal stenosis throughout the cervical spine but there is no severe central canal stenosis. There is bone marrow edema within the left C2 and C3 facets most likely degenerative or inflammatory Code(s): M50.30 - Other cervical disc degeneration, unspecified cervical region Category: Medical Plan: Continue Oxycodone-Acetaminophen 5-325 mg every 6 hours as needed Follow up with neurosurgery (Dr. Keller) as scheduled - was reportedly presented with the option of either repeat cortisone injection (which patient declined) or ACDF, especially if patient's neck symptoms get worse; patient is still undecided as to which option he wants to go with (7) Degenerative arthritis of knee, bilateral: Comment: S/P bilateral knee arthroplasty Code(s): M17.0 - Bilateral primary osteoarthritis of knee Category: Medical Qualifiers: Osteoarthritis type: unspecified Qualified Code(s): M17.0 - Bilateral primary osteoarthritis of knee Plan: S/P bilateral knee arthroplasty - he has been doing well mostly since his surgery Follow up with orthopedic as scheduled (8) GERD without esophagitis: Code(s): K21.9 - Gastro-esophageal reflux disease without esophagitis Category: Medical Plan: Dietary restrictions reinforced Continue Omeprazole 20 mg QD (9) Allergic rhinitis: Code(s): J30.9 - Allergic rhinitis, unspecified Category: Medical Qualifiers: Allergic rhinitis trigger: pollen Allergic rhinitis seasonality: seasonal Qualified Code(s): J30.1 - Allergic rhinitis due to pollen Plan: Continue Loratadine 10 mg QD PRN (10) Vitamin D deficiency: Code(s): E55.9 - Vitamin D deficiency, unspecified Category: Medical Plan: Continue Vitamin D3 1000 units QD (11) Deep inguinal pain: Comment: Diagnosed as bilateral Inguinal Disruption Code(s): R10.30 - Lower abdominal pain, unspecified Category: Medical Plan: He has been receiving trigger point injections over the inguinal areas from Dr. Steinberg over the past few months with little relief and was referred for pelvic girdle assessment He is now going to [facility] in [place] - to continue following up with urology as scheduled He was also seen by surgery at [facility] a few months ago and was advised that he recently sustained bilateral groin injury that is causing his recent increased pain and advised that he does NOT have any hernias (12) Urinary frequency: Code(s): R35.0 - Frequency of micturition Category: Medical Plan: Follow up with urology as scheduled (13) Umbilical hernia: Code(s): K42.9 - Umbilical hernia without obstruction or gangrene Category: Medical Qualifiers: Obstruction and gangrene presence: without obstruction or gangrene Qualified Code(s): K42.9 - Umbilical hernia without obstruction or gangrene Plan: He has been seen by HOSEA Orlando of [facility] for this and was recommended for corrective surgery on an elective basis - he was advised to just call them to schedule this when he is ready to have surgery done Follow up with [facility] as scheduled (14) Bronchitis: Code(s): J40 - Bronchitis, not specified as acute or chronic Category: Medical Plan: Will start patient empirically on Azithromycin QD x 5 days He is instructed to call if his symptoms do not respond to the Abx Tx or if they get worse over the next week or two (15) Varicose veins of bilateral lower extremities with pain: Code(s): I83.813 - Varicose veins of bilateral lower extremities with pain Category: Medical Plan: Per request, will refer him to [facility] for further evaluation and management (16) Obesity (BMI 30-39.9): Code(s): E66.9 - Obesity, unspecified Category: Medical Plan: Reinforced diet/exercise as tolerated/lose weight Plan Td booster given to patient today to get him updated again on his tetanus immunization Follow up in 3 months Orders: Orders Complete Blood Count Auto Diff 3 Months D64.9 - Anemia, unspecified Comprehensive [facility]. Panel Fast 3 Months E78.00 - Pure hypercholesterolemia, unspecified Lipid Panel 3 Months E78.00 - Pure hypercholesterolemia, unspecified Vitamin D 25-OH Total 3 Months E55.9 - Vitamin D deficiency, unspecified Td State Immunization 04/19/24 Z23 - Encounter for immunization TSH reflex Free T4 3 Months E78.00 - Pure hypercholesterolemia, unspecified UA CC w/rflx Micro + Cult 3 Months R30.0 - Dysuria Referrals Vascular Surgery Referral I83.813 - Varicose veins of bilateral lower extremities with pain Medications: New azithromycin take 500 mg today (day 1), then 250 mg for 4 days (days 2-5) PO 6 tabs 0RF
== END 2024-04-19 11:23 | disposition home or self-care (01) ==
PROVIDERS: PCP Internal Medicine; Visit Provider Internal Medicine
DX: E78.2 Mixed hyperlipidemia (principal); R73.01 Impaired fasting glucose; R03.0 Elevated blood-pressure reading, without diagnosis of hypertension; R79.89 Other specified abnormal findings of blood chemistry; M51.360 Other intervertebral disc degeneration, lumbar region with discogenic back pain only; M50.30 Other cervical disc degeneration, unspecified cervical region; M17.0 Bilateral primary osteoarthritis of knee; K21.9 Gastro-esophageal reflux disease without esophagitis; J30.1 Allergic rhinitis due to pollen; E55.9 Vitamin D deficiency, unspecified; R10.30 Lower abdominal pain, unspecified; R35.0 Frequency of micturition

== ENCOUNTER → 2024-04-19 10:38 | Outpatient (BNVA) | payer MEDICARE, MEDICAID, SELFPAY | PROVIDERS: PCP Internal Medicine; Visit Provider Internal Medicine | DX: R05.9 Cough, unspecified (principal); E78.2 Mixed hyperlipidemia; R73.01 Impaired fasting glucose; R03.0 Elevated blood-pressure reading, without diagnosis of hypertension; M51.360 Other intervertebral disc degeneration, lumbar region with discogenic back pain only; M50.30 Other cervical disc degeneration, unspecified cervical region; M17.0 Bilateral primary osteoarthritis of knee; K21.9 Gastro-esophageal reflux disease without esophagitis; J30.1 Allergic rhinitis due to pollen; E55.9 Vitamin D deficiency, unspecified; R10.30 Lower abdominal pain, unspecified; K42.9 Umbilical hernia without obstruction or gangrene; J40 Bronchitis, not specified as acute or chronic; I83.813 Varicose veins of bilateral lower extremities with pain; E66.9 Obesity, unspecified; R35.0 Frequency of micturition; D64.9 Anemia, unspecified; E78.00 Pure hypercholesterolemia, unspecified; R30.0 Dysuria; Z23 Encounter for immunization | CPT/HCPCS: 90471; 90714; 96127; 99212 ==

== ENCOUNTER 2024-07-21 07:51 | Outpatient (REF) | payer MEDICARE, MEDICAID, SELFPAY ==
[2024-07-21 08:28] LABS: MANUAL DIFF FLAG NO
[2024-07-21 08:36] LABS: Basophils Absolute Auto 0.1 X10*3/uL (0.0-0.2); Basophils Percent Auto 1.2 % (0-2); Eosinophils Absolute Auto 0.3 X10*3/uL (0.0-0.4); Eosinophils Percent Auto 5.6 % (0-4); Imm Gran Abs Auto 0.01 X10*3/uL (0.00-0.03); Imm Gran Pct Auto 0.2 % (0.0-0.4); Lymphocytes Absolute Auto 1.8 X10*3/uL (1.2-4.9); Lymphocytes Percent Auto 36.4 % (20-40); Mean Corpuscular HGB Conc 32.6 g/dl (31.0-36.0); Mean Corpuscular Hemoglobin 30.6 pg (27.0-33.0); Mean Corpuscular Volume 93.9 fL (80.0-98.0); Mean Platelet Volume 9.4 fL (9.4-12.4); Monocytes Absolute Auto 0.7 X10*3/uL (0.1-1.2); Monocytes Percent Auto 13.4 % (2-11); Neutrophils Absolute Auto 2.2 x10*3/uL (2.0-8.3); Neutrophils Percent Auto 43.2 % (45-73); Platelet Count 156 X10*3/uL (160-400); Red Cell Distribution Width 12.9 % (11.0-16.0)
[2024-07-21 09:13] LABS: Appearance Urine Clear; Color Urine Yellow; Glucose Urine UA Negative (Negative); Leukocyte Esterase Urine Negative (Negative); Nitrite Urine Negative (Negative); Urine Blood Negative (Negative); Urine Ketones Negative (Negative); Urine Protein Negative (Neg-Trace)
[2024-07-21 09:36] LABS: Alanine Aminotransferase 27 U/L (0-40); Albumin Level 3.9 g/dL (3.5-5.0); Alkaline Phosphatase 65 U/L (39-117); Anion Gap 8 (12-20); Aspartate Amino Transferase 39 U/L (5-37); Bilirubin Total 0.9 mg/dL (0.0-1.0); Blood Urea Nitrogen 12 mg/dL (9-16); Carbon Dioxide 31 mmol/L (22-29); Chloride 107 mmol/L (96-108); Cholesterol 106 mg/dL (<200); Estimated Glomerular Filt Rate > 60; Glucose Fasting 96 mg/dL (60-99); HDL Cholesterol 36 mg/dL (>40); LDL Cholesterol Calculated 57 mg/dL (<100); Potassium 4.4 mmol/L (3.3-5.1); Sodium 142 mmol/L (135-145); Total Protein 7.1 g/dL (6.5-8.0); Triglycerides 66 mg/dL (<150)
[2024-07-21 09:39] LABS: TSH reflex Free T4 1.43 uIU/mL (0.32-4.0); Vitamin D 25-OH Total 35.5 ng/mL (>30)
== END 2024-07-21 07:52 | disposition home or self-care (01) ==
LOC: HO.LAB 07:51
PROVIDERS: PCP Internal Medicine; Visit Provider Internal Medicine
DX: D64.9 Anemia, unspecified (principal); E78.00 Pure hypercholesterolemia, unspecified; E55.9 Vitamin D deficiency, unspecified; R30.0 Dysuria
CPT/HCPCS: 36415; 80053; 80061; 81003; 82306; 84443; 85025

== ENCOUNTER 2024-07-27 10:12 | Outpatient (AMB) | payer MEDICARE, MEDICAID, SELFPAY ==
--- NOTE | 2024-07-27 10:14 | MHC.PC.OV ---
Vital Signs 07/27/24 10:15 Height 5 ft 5.8 in Weight 224 lb BMI 36.4 BP 126/64 Blood Pressure Location Lt brachial Position Sitting Pulse 3 L Pulse Source Pulse Oximeter Pulse Oximetry (%) 93 Oxygen Delivery Method Room Air Intake Visit Reasons: [facility] f[facility]u [employer] Required: No Accompanied by: Self / Same As Patient Allergies No Known Allergies Allergy (Verified 07/27/24 10:31) Medication List - Last Reconciled 07/27/24 by Clifton Ray MD cholecalciferol (vitamin D3) 25 mcg PO DAILY gabapentin 300 mg PO TID [LIGHTWEIGHT ELECTRIC MOTORIZED SCOOTER As directed] loratadine 10 mg PO DAILY PRN 90 days niacin 500 mg PO BEDTIME oxycodone-acetaminophen 5-325 mg 1 tab PO Q6H PRN 28 days simvastatin 20 mg PO BEDTIME Tobacco use date assessed: 07/27/24 Fall risk assessment: No Falls in past year Last assessed Fall Risk: 07/27/24 Dental Screening Dental Screen Date: 07/27/24 Did you have a dental visit in the last 12 months?: No Did you have a dental problem in the last 6 months where you did not have access to dental care?: No Was dental information given to patient?: No HPI [facility]/u HPI Details Patient comes in today for his follow up visit States that he feels okay He denies any headaches or dizziness Denies any chest pains; no increased SOB No nausea/vomiting, no abdominal pain but still has (chronic) soreness over his inguinal areas bilaterally No change in bowel habits noted States that his chronic low back pain and joint pains remain adequately controlled on his current Rx He had his follow up labs done last week - to discuss his results [facility] Medical History Varicose veins of bilateral lower extremities with pain Hx of rotator cuff tear Back pain Hyperlipidemia Hx of degenerative disc disease DVT (deep venous thrombosis) Internal hemorrhoid Diverticulosis Constipation Urinary frequency Obesity (BMI 30-39.9) GERD without esophagitis Vitamin D deficiency Degenerative arthritis of knee, bilateral Degenerative disc disease, cervical Lumbar degenerative disc disease Impaired fasting glucose Mixed hyperlipidemia Surgical History Hx of excision of mass Hx of varicose vein stripping Hx of umbilical hernia repair Hx of foot surgery History of ankle surgery History of esophagogastroduodenoscopy (EGD) History of colonoscopy History of knee replacement procedure of right knee History of knee replacement procedure of left knee Family History Father Cancer Mother Diabetes Social History Housing: House Alcohol intake: never Patient Tobacco Use Status: Former Tobacco user e-Cigarette/Vaping Use: Never Used Second Hand Smoke Exposure: Yes service: No Current occupational status: disabled Cognitive needs: Yes (cane) Hearing needs: No Vision needs: Yes Questionnaire PHQ-9 Over the last 2 weeks, how often have you been bothered by any of the following problems? 1. Little interest or pleasure in doing things: not at all 2. Feeling down, depressed, or hopeless: not at all 3. Trouble falling or staying asleep, or sleeping too much: not at all 4. Feeling tired or having little energy: not at all 5. Poor appetite or overeating: not at all 6. Feeling bad about yourself - or that you are a failure or have let yourself or your family down: not at all 7. Trouble concentrating on things, such as reading the newspaper or watching television: not at all 8. Moving or speaking so slowly that other people could have noticed. Or the opposite - being so fidgety or restless that you have been moving around a lot more than usual: not at all 9. Thoughts that you would be better off or of hurting yourself in some way: not at all Total score: 0 Depression Screening Interpretation: Negative Depression Screening Done: Yes 73502 - PHQ-9 Billing: Yes Source: Developed by Drs. Wally Payan, Adrianne Emmanuel, Kian Villavicencio and colleagues, with an educational rolly from [employer]. Thrive Questionnaire Date Thrive assessed: 07/27/24 I am a: Patient What is your living situation today?: I have a steady place to live Within the past 12 months, did the food you bought not last and you didn't have the money to get more?: Never true Within the past 12 months, did you worry whether your food would run out before you got money to buy more?: Never true Do you have trouble paying for medicines?: No Do you have trouble getting transportation to medical appointments?: No Do you have trouble paying your heating and electricity bill?: No Do you have trouble taking care of your child, family member or friend?: No Do you have trouble with day-to-day activities such as bathing, preparing meals, shopping, managing finances, etc.?: No Are you currently unemployed and looking for a job?: Yes Are you interested in more education?: No Please select the resources that you would like help with: None Currently or been in a relationship where the following occur: No concerns reported THRIVE Score: 0 AUDIT C Alcohol Use Questionnaire (AUDIT-C) 1. How often do you have a drink containing alcohol?: Never 3. How often do you have six or more drinks on one occasion?: Never Total Score: 0 Score Reviewed/Action Taken: Yes PHYLLIS-7 AMB Questionnaire PHYLLIS-7 Date PHYLLIS - 7 assessed: 07/27/24 Feeling nervous, anxious, or on edge: 0 = Not at all Not being able to stop or control worryin = Not at all Worrying too much about different things: 0 = Not at all Trouble relaxin = Not at all Being so restless that it is hard to sit still: 0 = Not at all Becoming easily annoyed or irritable: 0 = Not at all Feeling afraid as if something awful might happen: 0 = Not at all Total PHYLLIS-7 score (0-4 normal; 5-9 mild; 10-14 moderate; 15-21 severe): 0 Source: Developed by Drs. Wally Payan, Adrianne Emmanuel, Kian Villavicencio and colleagues, with an educational rolly from [employer]. Review of Systems Const Denies chills, Reports fatigue, Denies fever(s) and Denies headache(s) ENT Denies dysphagia, Denies dizziness, Denies otalgia, Denies headache(s), Reports neck pain (chronic), Denies odynophagia and Denies sore throat Card Denies chest pain, Denies palpitations and Denies dyspnea Resp Denies chest congestion, Denies cough, Denies dyspnea and Denies wheezing GI Details: (+) umbilical hernia and right inguinal hernia Reports abdominal pain (over the inguinal areas - chronic), Reports constipation (on and off), Denies dysphagia, Denies heartburn, Denies diarrhea, Denies nausea, Denies odynophagia and Denies vomiting Details: (+) bilateral inguinal pain Denies hematuria, Reports difficulty urinating (at times), Reports dysuria (at times, over the inguinal and suprapubic areas), Reports urinary frequency and Reports urinary incontinence (occasionally) Musc Reports back pain (over the lumbar spine - chronic), Reports arthralgias (both knees) and Reports neck pain (chronic) Skin/Breast Denies rash Neuro Denies dizziness and Denies headache(s) Endo Reports fatigue and Denies palpitations Quintin/Lymph Details: (+) varicose veins over both lower extremities, with on and off pain lately Aller/Immun Reports seasonal rhinorrhea and Denies wheezing Physical exam (Primary Care) Vital Signs: Last Vital Signs Pulse 3 L 07/27/24 10:15 BP 126/64 07/27/24 10:15 Pulse Ox 93 07/27/24 10:15 Oxygen Delivery Method Room Air 07/27/24 10:15 BMI result Body Mass Index 36.4 Tobacco/Smoking Status: Tobacco use Status Tobacco use date assessed 07/27/24 07/27/24 10:24 Patient Tobacco Use Status Former Tobacco user 07/27/24 10:24 e-Cigarette/Vaping Use Never Used 07/27/24 10:24 PHQ-9: PHQ-9 Score PHQ-9: Total score 0 07/27/24 10:24 Depression Screening Interpretation: Negative Thrive Assessment: Date of Thrive Assessment Date Thrive assessed 07/27/24 07/27/24 10:24 Currently or been in a relationship where the following occur: No concerns reported Const General: no acute distress and alert HENMT Ears: TM's normal bilaterally and EAC's normal Throat: Yes posterior oropharynx normal and Yes tonsils normal (no TP congestion noted) Neck Neck: No lymphadenopathy and Yes tender Thyroid: Thyroid normal Resp Auscultation: clear to auscultation bilaterally, no rales, no wheezes and diminished lung sounds (slightly) bilateral Cardio Rate: regular rate Rhythm: regular rhythm Heart sounds: no murmurs GI Palpation (GI): Soft to palpation, nontender, no guarding, Hernia present (small) umbilical and No Rebound tenderness present Auscultation: normal bowel sounds Other: (+) bilateral inguinal tenderness, right > left General: Yes no CVA tenderness Back/Spine/Pelvis Back: no CVA tenderness Cervical Spine: Cervical spine tenderness Thoracic/Lumbar Spine: lumbar spinal tenderness (chronic) Skin Rashes: no rashes Extrem Other: (+) prominent varicosities over both lower extremities - some of these are slightly tender on deep palpation General: Yes no clubbing, cyanosis or edema Results Reviewed Results Reviewed: Laboratory Tests 07/21/24 07/21/24 08:25 08:27 WBC 5.0 Hgb 15.0 Hct 46.0 Plt Count 156 L Sodium 142 Potassium 4.4 Creatinine 0.82 Estimated GFR > 60 Fasting Glucose 96 Calcium 9.0 AST 39 H ALT 27 Triglycerides 66 Cholesterol 106 LDL Cholesterol, Calc 57 HDL Cholesterol 36 L 25-OH Vitamin D Total 35.5 TSH 1.43 Ur Specific [place] 1.020 Urine Protein Negative Urine Glucose (UA) Negative Urine Blood Negative Urine Nitrite Negative Ur Leukocyte Esterase Negative Coding Level of Care Code Est Pt Level 4 (61599) Diagnoses Mixed hyperlipidemia E78.2 Impaired fasting glucose R73.01 Elevated blood pressure reading without diagnosis of hypertension R03.0 Elevated LFTs R79.89 Degeneration of intervertebral disc of lumbar region with discogenic back pain M51.360 Disc-related pain type: discogenic back pain only Degenerative disc disease, cervical M50.30 Osteoarthritis of both knees, unspecified osteoarthritis type M17.0 Osteoarthritis type: unspecified Deep inguinal pain R10.30 Umbilical hernia without obstruction and without gangrene K42.9 Obstruction and gangrene presence: without obstruction or gangrene GERD without esophagitis K21.9 Seasonal allergic rhinitis due to pollen J30.1 Allergic rhinitis trigger: pollen Allergic rhinitis seasonality: seasonal Vitamin D deficiency E55.9 Urinary frequency R35.0 Varicose veins of bilateral lower extremities with pain I83.813 Obesity (BMI 30-39.9) E66.9 Additional Codes PHQ-9 - 37803 - PHQ-9 Billing: Yes ([id number]) Assessment & Plan Assessment & Plan (1) Mixed hyperlipidemia: Code(s): E78.2 - Mixed hyperlipidemia Category: Medical Plan: Results of his labs done last week reviewed and discussed with patient Reinforced low cholesterol diet Continue Simvastatin 20 mg QD and Niaspan ER 500 mg QHS Will recheck his labs and fasting lipids in 3 months for follow up (2) Impaired fasting glucose: Code(s): R73.01 - Impaired fasting glucose Category: Medical Plan: His HgbA1c was normal at 5.6%, 5.4% and 5.7% when previously checked; his FBS remains normal at 96 mg/dl on his recent labs Reinforced low calorie diet/exercise as tolerated (3) Elevated blood pressure reading without diagnosis of hypertension: Code(s): R03.0 - Elevated blood-pressure reading, without diagnosis of hypertension Category: Medical Plan: His blood pressure reading today is acceptable and is close to goal Reinforced low sodium diet Patient is reminded to continue monitoring his BP regularly (4) Elevated LFTs: Code(s): R79.89 - Other specified abnormal findings of blood chemistry Category: Medical Plan: His serum AST remains slightly elevated on his recent labs; ALT is normal Patient is reminded again to avoid taking too much OTC Tylenol or Acetaminophen and to completely avoid drinking any alcohol Will continue to monitor his LFTs regularly and recheck his LFTs in 3 months for follow up (5) Lumbar degenerative disc disease: Comment: Repeat lumbar spine MRI done on 11/03/2018 revealed (+) mild to moderate multilevel chronic spondylosis of the lumbar spine without associated marked central or foraminal stenosis or evidence of direct nerve root impingement Code(s): M51.36 - Other intervertebral disc degeneration, lumbar region Category: Medical Qualifiers: Disc-related pain type: discogenic back pain only Qualified Code(s): M51.360 - Other intervertebral disc degeneration, lumbar region with discogenic back pain only Plan: Reinforced activity and weight-lifting restrictions Continue Gabapentin 300 mg TID and Cyclobenzaprine 10 mg TID PRN (6) Degenerative disc disease, cervical: Comment: Cervical spine MRI in October 2016 revealed a slight increase in his cervical spine spondylosis (multilevel) Repeat cervical spine MRI on 11/03/2018 showed stable appearing multilevel cervical spondylosis; multilevel degenerative changes resulting in varying degrees of moderate to severe foraminal stenosis throughout the cervical spine but there is no severe central canal stenosis. There is bone marrow edema within the left C2 and C3 facets most likely degenerative or inflammatory Code(s): M50.30 - Other cervical disc degeneration, unspecified cervical region Category: Medical Plan: Continue Oxycodone-Acetaminophen 5-325 mg every 6 hours as needed Follow up with neurosurgery (Dr. Keller) as scheduled - he was reportedly presented with the option of either repeat cortisone injection (which patient declined) or ACDF previously, especially if patient's neck symptoms get worse - patient is still undecided as to which option he wants to choose but is leaning towards injection Tx (7) Degenerative arthritis of knee, bilateral: Comment: S/P bilateral knee arthroplasty Code(s): M17.0 - Bilateral primary osteoarthritis of knee Category: Medical Qualifiers: Osteoarthritis type: unspecified Qualified Code(s): M17.0 - Bilateral primary osteoarthritis of knee Plan: S/P bilateral knee arthroplasty - states that he has been doing well since his surgery Follow up with orthopedic as scheduled (8) Deep inguinal pain: Comment: Diagnosed as bilateral Inguinal Disruption Code(s): R10.30 - Lower abdominal pain, unspecified Category: Medical Plan: He has been receiving trigger point injections over the inguinal areas from Dr. Steinberg over the past few months with little relief and was referred for pelvic girdle assessment He is now going to [facility] in [place] - to continue following up with urology as scheduled He was also seen by surgery at [facility] a few months ago and was advised that he recently sustained bilateral groin injury that is causing his recent increased pain and advised that he does NOT have any hernias (9) Umbilical hernia: Code(s): K42.9 - Umbilical hernia without obstruction or gangrene Category: Medical Qualifiers: Obstruction and gangrene presence: without obstruction or gangrene Qualified Code(s): K42.9 - Umbilical hernia without obstruction or gangrene Plan: He has been seen by HOSEA Orlando of [facility] for this and was recommended for corrective surgery on an elective basis - he was advised to just call them to schedule this when he is ready to have surgery done Follow up with [facility] as scheduled (10) GERD without esophagitis: Code(s): K21.9 - Gastro-esophageal reflux disease without esophagitis Category: Medical Plan: Dietary restrictions reinforced Continue Omeprazole 20 mg QD (11) Allergic rhinitis: Code(s): J30.9 - Allergic rhinitis, unspecified Category: Medical Qualifiers: Allergic rhinitis trigger: pollen Allergic rhinitis seasonality: seasonal Qualified Code(s): J30.1 - Allergic rhinitis due to pollen Plan: Continue Loratadine 10 mg QD PRN (12) Vitamin D deficiency: Code(s): E55.9 - Vitamin D deficiency, unspecified Category: Medical Plan: Continue Vitamin D3 1000 units QD (13) Urinary frequency: Code(s): R35.0 - Frequency of micturition Category: Medical Plan: Follow up with urology as scheduled (14) Varicose veins of bilateral lower extremities with pain: Code(s): I83.813 - Varicose veins of bilateral lower extremities with pain Category: Medical Plan: States that he had laser ablation done a couple of months ago with (+) relief/improvement of his symptoms Follow up with [facility] as scheduled for continuing management of his varicose veins (15) Obesity (BMI 30-39.9): Code(s): E66.9 - Obesity, unspecified Category: Medical Plan: Reinforced diet/exercise as tolerated/lose weight Plan Follow up in 3 months Orders: Orders Lipid Panel 3 Months E78.00 - Pure hypercholesterolemia, unspecified Hemoglobin A1c 3 Months R73.01 - Impaired fasting glucose Complete Blood Count Auto Diff 3 Months D64.9 - Anemia, unspecified Comprehensive [place]. Panel Fast 3 Months E78.00 - Pure hypercholesterolemia, unspecified TSH reflex Free T4 3 Months E78.00 - Pure hypercholesterolemia, unspecified UA CC w/rflx Micro + Cult 3 Months R30.0 - Dysuria Vitamin D 25-OH Total 3 Months E55.9 - Vitamin D deficiency, unspecified
[2024-07-27 10:15] VITALS: BP 126/64; PULSE 3; O2SAT 93; BMI 36.4
--- OUTSIDE RECORDS SUMMARY | 2024-07-27 11:37 | XMS_ITS ---
Author Organization [facility] Address [address] [place] [id number] Care Team Providers Care Logging Assistant Name Role Phone Cory ROMERO, [place] Primary Care Provider Unava ilBen Arreaga Unavailable [phone] Encounters Encounter Location Date Provider Diagnosis [facility] [address] 03/29/2024 Ben Yancey Plan Of Treatment Next Appt Details Provider Name:Ben Yancey , 08/22/2024 09:30:00 AM, [address] [place] [address], [id number], Progress Notes * Yrn CARUSO RDOB:[birth year] (68 yo M)Acc No.[id number]:03/29/2024 Progress Note Patient:?ZULY Yrn Hooper Provider:?Ben Yancey DPM :1955???Age:68 Y???Sex:Male Jeffry e:03/29/2024 Address:[address] [place] [id number] Pcp:Clifton Ray MD Subjective: * Chief Complaints: * ??? * Medical History:? Objective: * Vitals:? Assessment: Plan: * Treatment: * Images: * The named appointment provid er may or may not be the originator of this progress note, and it is not deemed complete until electronically signed by the appointment provider. Sign off status: Pending * Provider:Artemio Yancey DPM Date:?2023 Generated for Ligia rouse/[place]/Dex on:?07/27/2024 11:37 AM EDT
--- OUTSIDE RECORDS SUMMARY | 2024-07-27 11:37 | XMS_ITS ---
Author Organization [facility] Address [address] [place] [id number] Care Team Providers Care Tire Manager Name Role Phone Cory ROMERO, [place] Primary Care Provider Unava ilable Ben Yancey Unavailable [phone] REASON FOR VISIT rs 03/28/24 Encounters Encounter Location Date Provider Diagnosis [address] [address] 03/27/2024 Ben Yancey Plan Of Treatment Next Appt Details Provider Name:Ben Yancey , 08/22/2024 09:30:00 AM, [address] [facility], [place] [address], [place], [phone], Progress Notes * Yrn CARUSO RDOB:[birth year] (68 yo M)Acc No.[id number]:03/27/2024 Patient:?Yrn CARSUO :1955???Age:68 Y???Sex:Male Address:[address] [place] [address], [phone] * true * Date:? Generated for Printi ng/Faxing/eTransmitting on:?07/27/2024 11:37 AM EDT
--- OUTSIDE RECORDS SUMMARY | 2024-07-27 11:37 | XMS_ITS ---
Author Organization [facility] Address [address] [place] [id number] Care Team Providers Care Automotive Worker Name Role Phone Cory ROMERO, [place] Primary Care Provider Wally Siegel Unavailable [phone] Allergies No Known Allergies REASON FOR VISIT Patient presents today for bleeding in rectum and anus Medications Medication SIG (Take, Route, Frequency, Duration) Notes Start Date End Date Status CeleBREX 200 MG 1 capsule with food Orally Once a day Not-Taking Omeprazole 20 MG 1 tablet Orally Once a day Not-Taking Nystatin 548866 UNIT/GM 1 application to affected area Externally Twice a day Not-Taking Niaspan 500 MG 1 tablet at bedtime Orally Once a day for 30 day(s) Active Gabapentin 300 MG 1 capsule Orally thr ee times a day Active Simvastatin 20 MG 1 tablet in the even ing Orally Once a day Active oxyCODONE-Acetaminophen 5-325 MG 1 tablet as needed Orally every 6 hrs Active Vitamin D3 25 MCG (1000 UT) 1 tablet Orally Once a day for 30 day(s) Active Social History Tobacco Use: Social History Observation Description Date Details (start date - stop date) Former Smoker NA - NA Tobacco Use/Smoking Question Answer Notes Patient is a former smoker How long has it been since you last smoked? > 10 years Section Notes: Smoker; no alcohol Problems Problem Type SNOMED Code ICD Code Onset Dates Problem Status W/U Status Risk Notes Problem [id number] Rectal bleeding (K62.5) Active confirmed Problem 61700737 Constipation, unspecified constipation type (K59.00) Active confirmed Vital Signs Temperature 97.7 degrees Fahrenheit 05/05/19 24 Blood pressure systolic 00 mm Hg 05/05/19 24 Blood pressure diastolic 00 mm Hg 024 Height 68.50 in 05/05/2023 Weight 230 lbs 05/05/2023 BMI 34.46 kg/m2 05/05/2023 Encounters Encounter Location Date Provider Diagnosis [facility] [address] [place] [address] 05/05/2023 Wally Garcia Rectal bleeding K62. 5 ; Constipation, unspecified constipation type K59.00 ; Hx of adenomatous colonic polyps Z86.010 and Encounter for screening for malignant neoplasm of colon Z12.11 Assessments Encounter Date Diagnosis (ICD Code) Assessment Notes Treatment Notes Treatment Clinical Notes Section Notes 05/05/2023 Rectal bleeding (ICD-10 - K62.5) Overall, Yrn appears well. We did review his constipation and rectal bleeding. I advised him that this certainly seems consistent with some hemorrhoidal bleeding in relation to straining during his bowel movements. I advised him that he should use a stool softener on a daily and regular basis rather than waiting for constipation. I advised him that would hopefully help decrease his need to strain with a bowel movement, help with his hemorrhoidal bleeding, and also cut down discomfort from the hernias. I did instruct him to stay on a very healthy diet with fruits, vegetables, and plenty of water as well. I also advised that he can try some Metamucil or Citrucel as needed. I did recommend a colonoscopy for further evaluation given his previous history of tubular adenomas, his intermittent bleeding, and a family history of GI malignancies. We did review the rationale for that in regard to colorectal cancer prevention. Full consent is obtained for this, including risks of bleeding and perforation. The procedure will be done with monitored anesthesia care. I did advise him to let me know what the surgeon says at his upcoming appointment in regard to his hernias. Yrn and his daughter were comfortable with this plan. Thank you again for allowing me to participate in Yrn's care. I shall continue to keep you advised of his progress. 05/05/2023 Constipation, unspecified constipation type (ICD-10 - K59.00) Use the stool softeners every day. Stay on a healthy diet with fruits, vegetables, and a lot of water. Overall, Yrn appears well. We did review his constipation and rectal bleeding. I advised him that this certainly seems consistent with some hemorrhoidal bleeding in relation to straining during his bowel movements. I advised him that he should use a stool softener on a daily and regular basis rather than waiting for constipation. I advised him that would hopefully help decrease his need to strain with a bowel movement, help with his hemorrhoidal bleeding, and also cut down discomfort from the hernias. I did instruct him to stay on a very healthy diet with fruits, vegetables, and plenty of water as well. I also advised that he can try some Metamucil or Citrucel as needed. I did recommend a colonoscopy for further evaluation given his previous history of tubular adenomas, his intermittent bleeding, and a family history of GI malignancies. We did review the rationale for that in regard to colorectal cancer prevention. Full consent is obtained for this, including risks of bleeding and perforation. The procedure will be done with monitored anesthesia care. I did advise him to let me know what the surgeon says at his upcoming appointment in regard to his hernias. Yrn and his daughter were comfortable with this plan. Thank you again for allowing me to participate in Yrn's care. I shall continue to keep you advised of his progress. 05/05/2023 Hx of adenomatous colonic polyps (ICD-10 - Z86.010) Overall, Yrn appears well. We did review his constipation and rectal bleeding. I advised him that this certainly seems consistent with some hemorrhoidal bleeding in relation to straining during his bowel movements. I advised him that he should use a stool softener on a daily and regular basis rather than waiting for constipation. I advised him that would hopefully help decrease his need to strain with a bowel movement, help with his hemorrhoidal bleeding, and also cut down discomfort from the hernias. I did instruct him to stay on a very healthy diet with fruits, vegetables, and plenty of water as well. I also advised that he can try some Metamucil or Citrucel as needed. I did recommend a colonoscopy for further evaluation given his previous history of tubular adenomas, his intermittent bleeding, and a family history of GI malignancies. We did review the rationale for that in regard to colorectal cancer prevention. Full consent is obtained for this, including risks of bleeding and perforation. The procedure will be done with monitored anesthesia care. I did advise him to let me know what the surgeon says at his upcoming appointment in regard to his hernias. Yrn and his daughter were comfortable with this plan. Thank you again for allowing me to participate in Yrn's care. I shall continue to keep you advised of his progress. 05/05/2023 Encounter for screening for malignant neoplasm of colon (ICD-10 - Z12.11) Overall, Yrn appears well. We did review his constipation and rectal bleeding. I advised him that this certainly seems consistent with some hemorrhoidal bleeding in relation to straining during his bowel movements. I advised him that he should use a stool softener on a daily and regular basis rather than waiting for constipation. I advised him that would hopefully help decrease his need to strain with a bowel movement, help with his hemorrhoidal bleeding, and also cut down discomfort from the hernias. I did instruct him to stay on a very healthy diet with fruits, vegetables, and plenty of water as well. I also advised that he can try some Metamucil or Citrucel as needed. I did recommend a colonoscopy for further evaluation given his previous history of tubular adenomas, his intermittent bleeding, and a family history of GI malignancies. We did review the rationale for that in regard to colorectal cancer prevention. Full consent is obtained for this, including risks of bleeding and perforation. The procedure will be done with monitored anesthesia care. I did advise him to let me know what the surgeon says at his upcoming appointment in regard to his hernias. Yrn and his daughter were comfortable with this plan. Thank you again for allowing me to participate in Yrn's care. I shall continue to keep you advised of his progress. Plan Of Treatment Treatment Notes Assessment Notes Constipation, unspecified constipation t ype Use the stool softeners every day. Stay on a healthy diet with fruits, vegetables, and a lot of water. Future Test Test Name Order Date COLONOSCOPY 05/05/2023 Next Appt Details Follow Up: prn, Reason: Progress Notes * YRN CARUSODOB:1955 (67 yo M)Acc No.[id number]:05/05/2023 Progress Notes Patient:?YRN CARUSO Provider:?Wally Garcia MD :1955???Age:67 Y???Sex:Male Jeffry e:05/05/2023 Address:[address] [place], [place] [id number] Pcp:Clifton Ray MD Subjective: * Chief Complaints: * ???Patient presents today fo r bleeding in rectum and anus * HPI: ???incontinence:? I saw Yrn in consultation today in regard to further evaluation of his constipation, rectal bleeding, personal history of tubular adenomas of the colon, family history of GI malignancy, and need for colorectal cancer screening. He was accompanied by his daughter, Penelope, who is a surgical OR tech at [facility] and Dr. Brooks's office. ?I last saw Yrn in April 2018, at which time he underwent a followup screening colonoscopy with removal of only some small hyperplastic polyps. He reports that he has been doing well but has been troubled by constipation in relation to his chronic use of oxycodone. He does have intermittent straining and notes some bright red blood mixed with his bowel movements. He denies any melena. He denies any rectal pain. He does use stool softeners p.r.n. with some improvement but not on a regular basis. He enjoys a good appetite, without any significant heartburn or dysphagia. ?He does have intermittent abdominal discomfort in relation to hernias for which he has an appointment with a surgeon at [facility] on May 26 for an initial evaluation. He denies any jaundice nor weight loss. ?His family history is notable for both parents having had some type of intra-abdominal GI malignancy but he is not sure if it was colon cancer or gastric cancer. Laboratories from February 2023 revealed normal chemistries and renal function, and a normal CBC with a hemoglobin of 15.2. * ROS:?General/Constitutional:?Change in appetite?denies.?Chills?denies.?Fatigue?denies.?Ophthalmologic:?Patient denies? Negative..?ENT:?Patient denies?Negative..?Respiratory:?Patient denies?No coughing/hemoptysis..?Cardiovascular:?Patient denies? No chest pain/orthopnea..?Gastrointestinal:?Comments?See HPI for details.?Genitourinary:?Patient denies? No dysuria/hematuria..?Musculoskeletal:?Patient denies?Chronic left shoulder, neck, and lower back pain.?Skin:?Patient denies?No rash/pruritus..?Neurologic:?Patient denies? No headaches/seizures..?Psychiatric:?Patient denies?Negative..? * Medical History:? * Surgical History:?Left knee replacement in 2003 and right knee replacement in 2001 Ankle surgery right Left foot surgery Umbilical hernia surgery Benign mass taken out of right groin Varicose vein stripping right leg * Hospitalization/Major Diagno stic Procedure:?No Hospitalization History. * Family History:?Father: dece ased.?Mother: 89 yrs, stomach cancer.? Denies family hx. of colorectal cancer; Dad had gastric cancer. * Social History:?Tobacco Use:?Tobacco Use/Smoking?Patient is a?former smoker,?How long has it been since you last smoked??> 10 years.?Drugs/Alcohol:?Alcohol Screen?Points: 0, Interpretation: Negative.?Miscellaneous:?Marital status: . Occupation: Retired. ???Smoker; no alcohol. * Medications:?TakingVitamin D 3 25 MCG (1000 UT) Tablet 1 tablet Orally Once a daySimvastatin 20 MG Tablet 1 tablet in the evening Orally Once a dayoxyCODONE-Acetaminophen 5-325 MG Tablet 1 tablet as needed Orally every 6 hrsNiaspan 500 MG Tablet Extended Release 1 tablet at bedtime Orally Once a dayGabapentin 300 MG Capsule 1 capsule Orally three times a dayTaking Vitamin D3 25 MCG (1000 UT) Tablet 1 tablet Orally Once a dayTaking Simvastatin 20 MG Tablet 1 tablet in the evening Orally Once a dayTaking oxyCODONE-Acetaminophen 5-325 MG Tablet 1 tablet as needed Orally every 6 hrsTaking Niaspan 500 MG Tablet Extended Release 1 tablet at bedtime Orally Once a dayTaking Gabapentin 300 MG Capsule 1 capsule Orally three times a dayNot-Taking/PRNOmeprazole 20 MG Capsule Delayed Release 1 tablet Orally Once a dayNystatin 067644 UNIT/GM Ointment 1 application to affected area Externally Twice a dayCeleBREX 200 MG Capsule 1 capsule with food Orally Once a dayNot-Taking/PRN Omeprazole 20 MG Capsule Delayed Release 1 tablet Orally Once a dayNot-Taking/PRN Nystatin 847818 UNIT/GM Ointment 1 application to affected area Externally Twice a dayNot-Taking/PRN CeleBREX 200 MG Capsule 1 capsule with food Orally Once a dayDiscontinuedCyclobenzaprine HCl 10 MG Tablet 1 tablet as needed Orally Three times a dayVitamin D 1000 UNIT Tablet 1 tablet Orally Once a dayMedication List reviewed and reconciled with the patientDiscontinued Cyclobenzaprine HCl 10 MG Tablet 1 tablet as needed Orally Three times a dayDiscontinued Vitamin D 1000 UNIT Tablet 1 tablet Orally Once a dayMedication List reviewed and reconciled with the patient * Allergies:?N.K.D.A.yes[Aller gies Verified] Objective: * Vitals:?Wt: 230 lbs, Ht: 68. 50 in, BMI:34.46 Index, BP: 00/00 mm Hg, Temp: 97.7. * Examination: ???General Examination: ?GENERAL APPEARANCE:?pleasant, well nourished, well developed, in no acute distress.?EYES:?sclera non-icteric.?ORAL CAVITY:?mucosa moist.?NECK/THYROID:?no cervical lymphadenopathy, neck supple.?SKIN:?nonjaundiced, no spider angiomata..?HEART:?S1, S2 normal.?LUNGS:?clear to auscultation bilaterally.?ABDOMEN:?normal bowel sounds, no guarding or rigidity, no hepatosplenomegaly, no masses palpable, soft, nontender, nondistended..?EXTREMITIES:?no edema.?NEUROLOGIC:?alert and oriented.? Assessment: * Assessment: 1.?Constipation, unspecified constipation type - K59.00 (Primary)?2.?Rectal bleeding - K62.5?3.?Hx of adenomatous colonic polyps - Z86.010?4.?Encounter for screening for malignant neoplasm of colon - Z12.11? Overall, Yrn appears well . We did review his constipation and rectal bleeding. I advised him that this certainly seems consistent with some hemorrhoidal bleeding in relation to straining during his bowel movements. I advised him that he should use a stool softener on a daily and regular basis rather than waiting for constipation. I advised him that would hopefully help decrease his need to strain with a bowel movement, help with his hemorrhoidal bleeding, and also cut down discomfort from the hernias. I did instruct him to stay on a very healthy diet with fruits, vegetables, and plenty of water as well. I also advised that he can try some Metamucil or Citrucel as needed. I did recommend a colonoscopy for further evaluation given his previous history of tubular adenomas, his intermittent bleeding, and a family history of GI malignancies. We did review the rationale for that in regard to colorectal cancer prevention. Full consent is obtained for this, including risks of bleeding and perforation. The procedure will be done with monitored anesthesia care. I did advise him to let me know what the surgeon says at his upcoming appointment in regard to his hernias. Yrn and his daughter were comfortable with this plan. Thank you again for allowing me to participate in Yrn's care. I shall continue to keep you advised of his progress. Plan: * Treatment: 2.?Hx of adenomatous colonic polyps?Procedure: COLONOSCOPY (Ordered for 05/05/2023) 3.?Encounter for screening for malignant neoplasm of colon?Procedure: COLONOSCOPY (Ordered for 05/05/2023)* with MACsched for 06/10/23 at 2:20 pmmiralax * Procedure Codes:?3017F COLOR ECTAL CA SCREEN DOC [id number] BP SCR NOT PRFRM REC REASON [id number] Pt scrn tbco and id as user * Preventive Medicine:? ??Counseling:?Care goal follow-up plan:?Above Normal BMI Follow-up?Giving encouragement to exercise,?BMI management provided?Yes.? * Follow Up:?prn * * Sign off status: Completed true * Provider:?Wally Garcia MD Date:? 024 Generated for Ligia rouse/[place]/Anastasiaitting on:?07/27/2024 11:37 AM EDT History and Physical Notes * HPI (History of Present Illness) Category Sub-Category Detail Notes Category Not es incontinence I saw Yrn in consultation today in regard to further evaluation of his constipation, rectal bleeding, personal history of tubular adenomas of the colon, family history of GI malignancy, and need for colorectal cancer screening. He was accompanied by his daughter, Penelope, who is a surgical OR tech at [facility] and Dr. Brooks's office. I last saw Yrn in April 2018, at which time he underwent a followup screening colonoscopy with removal of only some small hyperplastic polyps. He reports that he has been doing well but has been troubled by constipation in relation to his chronic use of oxycodone. He does have intermittent straining and notes some bright red blood mixed with his bowel movements. He denies any melena. He denies any rectal pain. He does use stool softeners p.r.n. with some improvement but not on a regular basis. He enjoys a good appetite, without any significant heartburn or dysphagia. He does have intermittent abdominal discomfort in relation to hernias for which he has an appointment with a surgeon at [facility] on May 26 for an initial evaluation. He denies any jaundice nor weight loss. His family history is notable for both parents having had some type of intra-abdominal GI malignancy but he is not sure if it was colon cancer or gastric cancer. Laboratories from February 2023 revealed normal chemistries and renal function, and a normal CBC with a hemoglobin of 15.2. Examination Category Sub-Category Detail Notes Category Not es General Examination GENERAL APPEARANCE: pleasant , well nourished, well developed, in no acute distress EYES: sclera non-icteric NECK/THYROID: no cervical lymphade nopathy, neck supple HEART: S1, S2 normal LUNGS: clear to auscultatio n bilaterally ABDOMEN: normal bowel sounds, no guarding or rigidity, no hepatosplenomegaly, no masses palpable, soft, nontender, nondistended. NEUROLOGIC: alert and oriented SKIN: nonjaundiced, no spi vidhya angiomata. EXTREMITIES: no edema ORAL CAVITY: mucosa moist
--- OUTSIDE RECORDS SUMMARY | 2024-07-27 11:37 | XMS_ITS ---
Author Organization [facility] Address [address] [place] [phone] Care Team Providers Care Interventional Radiologist Name Role Phone Cory ROMERO, [place] Primary Care Provider Unava Wally Dotson Unavailable [phone] REASON FOR VISIT screening,hx polyps Problems Problem Type SNOMED Code ICD Code Onset Dates Problem Status W/U Status Risk Notes Problem Diverticular disease of colon (058297633) Diverticulosis of large intestine without perforation or abscess without bleeding (K57.30) Active confirmed Encounters Encounter Location Date Provider Diagnosis [facility] [place] Outpatient [address] [place] [phone] 06/10/2023 Wally Garcia Encounter for scre ening [...] No Information Progress Notes * AVA CARUSODOB:1955 (68 yo M)Acc No.[id number]:06/10/2023 COLON WITH MAC Patient:?AVA CARUSO Provider:?Wally Garcia MD :1955???Age:67 Y???Sex:Male Jeffry e:06/10/2023 Address:[address] [place] [address] Pcp:Clifton Ray MD Subjective: * Chief Complaints: * ???1. Screening,hx polyps. * Medical History:? Objective: * Vitals:? Assessment: * Assessment: 1.?Encounter for screening c olonoscopy - Z12.11 (Primary)???2.?Colon polyps - K63.5???3.?Diverticulosis of large intestine without perforation or abscess without bleeding - K57.30???4.?Other hemorrhoids - K64.8??? Plan: * Treatment: * Procedure Codes:?71627 COLON OSCOPY AND BIOPSY, Modifiers: PT , 0529F INTRVL 3+YRS PTS CLNSCP DOCD, 0528F RCMND FLW-UP 10 YRS DOCD, Modifiers: 1P * * The named appointment provid er may or may not be the originator of this progress note, and it is not deemed complete until electronically signed by the appointment provider. Sign off status: Pending * Provider:?Wally Garcia MD Date:? 024 Generated for Ligia rouse/[place]/Anastasiaitting on:?07/27/2024 11:37 AM EDT
--- OUTSIDE RECORDS SUMMARY | 2024-07-27 11:38 | XMS_ITS | Patient Health Record ---
[facility] Address [address] [place] [address] Care Team Providers Care Pot Holder Binder Name Role Phone Cory ROMERO [place] Primary Care Provider UnaBen Lee Unavailable [phone] Allergies No Known Allergies Reason For Referral No Information Medications Medication SIG (Take, Route, Frequency, Duration) Notes Start Date End Date Status Simvastatin Active Vitamin D3 Active Ciclopirox Olamine 0.77 % 1 application Externally Twice a day to skin of feet including between the toes for 30 days Active Nystatin Active oxyCODONE-Acetaminophen 5-325 MG 1 tablet as needed Orally every 6 hrs Active Omeprazole 20 MG 1 capsule 30 minutes before morning meal Orally Once a day for 30 day(s) Not-Taking Gabapentin 300 MG 1 capsule Orally Thr ee times a day Active Niacin 500 MG 1 tablet with food Orally At bedtime Active Social History Tobacco Use: Social History Observation Description Date Details (start date - stop date) Never Smoker NA - NA Alcohol Screen Question Answer Notes Did you have a drink containing alcohol in the p ast year? No Points 0 Interpretation Negative Tobacco use other than smoking: Question Answer Notes Are you an other tobacco user? No Tobacco Control (Standard) Question Answer Notes Tobacco use: Nonsmoker Additional Findings: Tobacco non-user Current no nsmoker Problems Problem Type SNOMED Code ICD Code Onset Dates Problem Status W/U Status Risk Notes Problem Plantar wart (25097083) Plantar wart (B07.0) Active confirmed Problem Atherosclerosis of [place] arteries of the extremities (495990966815808) Atherosclerosis of [place] artery of both lower extremities, with unspecified presence of clinical manifestation (I70.203) Active confirmed Vital Signs Blood pressure diastolic 71 mm Hg 05/23/2024 Height 5ft 8in in 05/23/2024 Blood pressure systolic 131 mm Hg 05/23/2024 Weight 220 lbs 05/23/2024 BMI 33.45 kg/m2 05/23/2024 Procedures Procedure Date Ordered Date Performed Result Body Sit e 58320-JRWPBAS NAIL, 1-12/22/2023 N/A 92822-Xfvw Destruction, 1-12/22/2023 N/A 11704-FLED SKIN LESIONS, OVER 4 12/22/2023 N/A F7538-LQRIFMGK DYSTROPHIC NAILS ANY # 12/22/2023 N/A 16045-EVBNKZF NAIL, 1-05/23/2024 N/A 73960-Sxyn Destruction, 1-05/23/2024 N/A 66590-NBJQ SKIN LESIONS, OVER 4 05/23/2024 N/A L2421-OUYEOXMO DYSTROPHIC NAILS ANY # 05/23/2024 N/A Encounters Encounter Location Date [facility] [address] 12/22/2023 Ben Yancey Atherosclerosis of [place] artery of both lower extremities, with unspecified presence of clinical manifestation I70.203 ; Tinea unguium B35.1 ; Pain in right toe(s) M79.674 ; Pain in left toe(s) M79.675 ; Plantar wart B07.0 and Pain in left foot M79.[address] [address] 05/23/2024 Ben Yancey Atherosclerosis of [place] artery of both lower extremities, with unspecified presence of clinical manifestation I70.203 ; Tinea unguium B35.1 ; Pain in right toe(s) M79.674 ; Pain in left toe(s) M79.675 ; Plantar wart B07.0 ; Pain in left foot M79.672 and Tinea pedis of both feet B35.[address] [address] 11/29/2023 [facility] [place] [address] [place] [address] 03/27/2024 Ben Yancey Assessments Encounter Date Diagnosis (ICD Code) Assessment Notes Treatment Notes Treatment Clinical Notes Section Notes 12/22/2023 Tinea unguium (ICD-10 - B35.1) 12/22/2023 Atherosclerosis of [place] artery of both lower extremities, with unspecified presence of clinical manifestation (ICD-10 - I70.203) 05/23/2024 Tinea unguium (ICD-10 - B35.1) 05/23/2024 Atherosclerosis of [place] artery of both lower extremities, with unspecified presence of clinical manifestation (ICD-10 - I70.203) 05/23/2024 Pain in right toe(s) (ICD-10 - M79.674) 12/22/2023 Pain in right toe(s) (ICD-10 - M79.674) 12/22/2023 Pain in left toe(s) (ICD-10 - M79.675) 05/23/2024 Pain in left toe(s) (ICD-10 - M79.675) 05/23/2024 Plantar wart (ICD-10 - B07.0) 12/22/2023 Plantar wart (ICD-10 - B07.0) 12/22/2023 Pain in left foot (ICD-10 - M79.672) 05/23/2024 Pain in left foot (ICD-10 - M79.672) 05/23/2024 Tinea pedis of both feet (ICD-10 - B35.3) Plan Of Treatment Pending Test Test Name Order Date 45558-TWCPUID NAIL, 1-12/15/2022 16135-TYKTNHN NAIL, -03/14/2023 05335-GVCJKRE NAIL, -06/15/2023 50316-YVLLVFR NAIL, -12/22/2023 27400-BMAIPJU NAIL, -05/23/2024 42785-Dyjw Destruction, -05/23/2024 66603-Uxsq Destruction, -12/22/2023 98827-Cfyw Destruction, -06/15/2023 01329-Ygmz Destruction, 1-03/14/2023 41566-UDQF SKIN LESIONS, OVER 4 12/16/19 23 23401-RJOY SKIN LESIONS, OVER 4 03/14/20 23 92486-ERAL SKIN LESIONS, OVER 4 06/15/19 24 98449-TSVQ SKIN LESIONS, OVER 4 12/22/19 24 49805-MTEJ SKIN LESIONS, OVER 4 05/23/19 25 U2825-HZAELQGM DYSTROPHIC NAILS ANY # W0013-FMPIMIGB DYSTROPHIC NAILS ANY # C0405-FEOPTMZB DYSTROPHIC NAILS ANY # A2123-VACNSKRF DYSTROPHIC NAILS ANY # Q5448-UJRJWQFE DYSTROPHIC NAILS ANY # Next Appt Details Provider Name:Ben Yancey , 08/22/2024 09:30:00 AM, [address] [facility], [facility] [address], [place], [address], Insurance Providers Payer Name Payer Address Payer Phone Subscriber Number Group Number Insured Name Patient Relationship to Insured Coverage Start Date Coverage End Date Medicare National [employer] [address] [place] [address] [id number] Yrn Tovar Self - patient is the insured Medical (General) History Medical History History ICD Code Back pain Neck pain Degenerative Disc disease/cervical Gastroesophageal reflux disease (GERD) Hyperlipidemia Lumbar degenerative disc disease Obesity Onychomycosis osteoarthritis bilateral knees Tinea Unguium Vitamin D deficiency Chicken pox nerve disorder Joint implants/screws/knee replacement Numbness Sciatica Surgical History Surgery Date(Month/Year) left knee replacement right knee replacement foot surgery varicose veins right leg umbilical hernia repair Hospitalization History Reason Date(Month/Year) MRI Cervical spine 2017 [facility]- head cold, on antibiotics 03/2024 Colonoscopy 05/2023 MRI repeat Cervical spine 11/03/2018
--- OUTSIDE RECORDS SUMMARY | 2024-07-27 11:38 | XMS_ITS | Clinical Summary ---
Author Organization [facility] Address [address] [place] [address] Phone Care Team Providers Care Signal Integrity Engineer Name Role Phone Clifton Ray MD Primary Care Provider + [phone] Allergies No known active allergies Medications No known medications Medical History Medical History Date Comments Back ache Arthritis Sciatica Social History Tobacco Use Types Packs/Day Years Used Date Smoking Tobacco: Former Cigarettes Smokeless Tobacco: Never Tobacco Cessation:Counseling Given: Not Answered Sex and Gender Information Value Date Recorded Sex Assigned at Not on file Legal Sex Male 12:41 PM EST Gender Identity Not on file Sexual Orientation Not on file Obstetrics History Last Filed Vital Signs Vital Sign Reading Time Taken Comments Blood Pressure 132/62 03/31/2024 3:03 PM EST Pulse 67 03/31/2024 3:03 PM EST Temperature 37 ??C (98.6 ??F) 03/31/2024 3:03 PM EST Respiratory Rate 18 03/31/2024 3:03 PM EST Oxygen Saturation 95% 03/31/2024 3:03 PM EST Inhaled Oxygen Concentration - - Weight 101 kg (222 lb) 03/31/2024 12:57 PM EST Height 172.7 cm (5' 8 ) 03/31/2024 12:57 PM EST Body Mass Index 33.75 03/31/2024 12:57 PM EST Plan of Treatment Health Maintenance Due Date Last Done Comments DTaP,Tdap,and Td Vaccines (1 - Tdap) 09/30/1975 Pneumococcal Vaccine: 50+ Ye ars (1 of 1 - PCV) 2006 Zoster Vaccines (1 of 2) 2006 COVID-19 Vaccine ( - 2023-2 5 season) 2023 Abdominal Aortic Aneurysm (A AA) Screen 03/31/2024 Cholesterol Screening (Lipid Panel) 03/31/2024 Colorectal Cancer Screening: Colonoscopy 03/31/2024 Depression Screening 03/31/2024 Falls Risk Assessment 03/31/2024 Hepatitis C Screening 03/31/2024 Medicare Annual Wellness Visit 03/31/2024 Social Influencers of Health Screening 03/31/2024 Influenza Vaccine (Season Ended) 2024 RSV Immunization Adult Patie nts (1 - 1-dose 75+ series) 09/30/2031 HIB Vaccines Aged Out No longer eligi ble based on patient's age to complete this topic HPV Vaccines Aged Out No longer eligi ble based on patient's age to complete this topic Hepatitis A Vaccines Aged Out No long er eligible based on patient's age to complete this topic Hepatitis B Vaccines Aged Out No long er eligible based on patient's age to complete this topic IPV Vaccines Aged Out No longer eligi ble based on patient's age to complete this topic MMR Vaccines Aged Out No longer eligi ble based on patient's age to complete this topic Meningococcal ACWY Vaccine Aged Out N o longer eligible based on patient's age to complete this topic Meningococcal B Vacine Aged Out No lo nger eligible based on patient's age to complete this topic RSV Immunization Patients Un vidhya 20 months Aged Out No longer eligible b ased on patient's age to complete this topic Varicella Vaccines Aged Out No longer eligible based on patient's age to complete this topic Insurance MEDICARE MEDICAID - [place] Care Teams Signal Integrity Engineer Relationship Specialty Start Date End Date Clifton Ray MD [address] [place] [address] PCP - General Internal Medicine 03/31/24
--- OUTSIDE RECORDS SUMMARY | 2024-07-27 11:38 | XMS_ITS | Patient Health Record ---
Author Organization [facility] Address [address] [place] [address] Care Team Providers Care Manager Agency Name Role Phone Cory ROMERO, Josephine Primary Care Provider Wally Siegel Unavailable [phone] Allergies No Known Allergies Reason For Referral No Information Medications Medication SIG (Take, Route, Frequency, Duration) Notes Start Date End Date Status Niaspan 500 MG 1 tablet at bedtime Orally Once a day for 30 day(s) Active Gabapentin 300 MG 1 capsule Orally thr ee times a day Active CeleBREX 200 MG 1 capsule with food Orally Once a day Not-Taking Omeprazole 20 MG 1 tablet Orally Once a day Not-Taking Nystatin 820139 UNIT/GM 1 application to affected area Externally Twice a day Not-Taking Simvastatin 20 MG 1 tablet in the even ing Orally Once a day Active oxyCODONE-Acetaminophen 5-325 MG 1 tablet as needed Orally every 6 hrs Active Vitamin D3 25 MCG (1000 UT) 1 tablet Orally Once a day for 30 day(s) Active Immunizations Vaccine Route Administration Date Status Comme nts Influenza Unknown 12/24/2018 Administered Social History Tobacco Use: Social History Observation Description Date Details (start date - stop date) Former Smoker NA - NA Tobacco Use/Smoking Question Answer Notes Patient is a former smoker How long has it been since you last smoked? > 10 years Section Notes: Smoker; no alcohol Smoker; no alcohol Smoker; no alcohol Problems Problem Type SNOMED Code ICD Code Onset Dates Problem Status W/U Status Risk Notes Problem 45022120 Rectal bleeding (K62.5) Active confirmed Problem 497320967 Encounter for screening for malignant neoplasm of colon (Z12.11) Active confirmed Problem Diverticular disease of colon (963768406) Diverticulosis of large intestine without perforation or abscess without bleeding (K57.30) Active confirmed Problem 155071967936222 Preprocedural examination (Z01.818) Active confirmed Problem 16328266 Constipation, unspecified constipation type (K59.00) Active confirmed Problem 573495752 Hx of adenomatou s colonic polyps (Z86.010) Active confirmed Plan Of Treatment Pending Test Test Name Order Date Pathology 06/10/2023 Future Test Test Name Order Date COLONOSCOPY 02/23/2012 COLONOSCOPY 01/16/2019 COLONOSCOPY 05/05/2023 Insurance Providers Payer Name Payer Address Payer Phone Subscriber Number Group Number Insured Name Patient Relationship to Insured Coverage Start Date Coverage End Date MEDICARE OF [place] [address] [place] [id number] AVA CARUSO Self - patient is the insured MEDICAID OF [facility] [address] [place] [address] [id number] AVA CARUSO Self - patient is the insured Medical (General) History Medical History History ICD Code Colonoscopy 10/14/2005 and i n 2001 with removal of tubular adenomas; colonoscopy in 02/2012 with only a hyperplastic polyp Chronic GERD-neg. EGD in 2001, neg Hpylo ri Diverticulosis Internal hemorrhoids DVT Disc disease in back-no surgery Denies [place],DM,CVA,Lung disease,renal dise ase Hyperlipidemia Chronic neck and lower back problems with neuropathy/sciatica/pain--back is inoperablle and may pinched nerve in neck . be having a C-spine fusion Left rotator cuff injury Screening colonoscopy in Apr revealed only hyperplastic polyps and internal hemorrhoids Surgical History Surgery Date(Month/Year) Left knee replacement in 2003 and right knee replacement in 2001 Ankle surgery right Left foot surgery Umbilical hernia surgery Benign mass taken out of right groin Varicose vein stripping right leg
--- OUTSIDE RECORDS SUMMARY | 2024-07-27 11:38 | XMS_ITS ---
Author Organization [facility] Rogers Address [address] [place] [address] Care Team Providers Care Pantry Attendant Name Role Phone Cory ROMERO, [place] Primary Care Provider UnaBen Lee Unavailable [phone] Allergies No Known Allergies REASON FOR VISIT At Risk Footcare, Painful Nail(s) aggrevated by shoes and causing difficulty standing/walking., Wart(s), Skin Problem Medications Medication SIG (Take, Route, Frequency, Duration) Notes Start Date End Date Status Simvastatin Active Ciclopirox Olamine 0.77 % 1 application Externally Twice a day to skin of feet including between the toes for 30 days Active Nystatin Active oxyCODONE-Acetaminophen 5-325 MG 1 tablet as needed Orally every 6 hrs Active Niacin 500 MG 1 tablet with food Orally At bedtime Active Vitamin D3 Active Omeprazole 20 MG 1 capsule 30 minutes before morning meal Orally Once a day for 30 day(s) Not-Taking Gabapentin 300 MG 1 capsule Orally Thr ee times a day Active Social History Tobacco Use: Social History [...] Additional Findings: Tobacco non-user Current no nsmoker Vital Signs Height 5ft 8in in 05/23/2024 Weight 220 lbs 05/23/2024 BMI 33.45 kg/m2 05/23/2024 Blood pressure systolic 131 mm Hg 05/23/19 25 Blood pressure diastolic 71 mm Hg 025 Procedures Procedure Date Ordered Date Performed Result Body Sit e 63617-ELHNPMJ NAIL, 1-05/23/2024 N/A 15049-Pzmc Destruction, 1-05/23/2024 N/A 32971-VOFH SKIN LESIONS, OVER 4 05/23/2024 N/A [id number]-[id number] DYSTROPHIC NAILS ANY # 05/23/2024 N/A Encounters Encounter Location Date Provider Diagnosis [facility] [place] [address] [address] 05/23/2024 Ben Yancey Atherosclerosis of viejas artery of both lower extremities, with unspecified presence of clinical manifestation I70.203 ; Tinea unguium B35.1 ; Pain in right toe(s) M79.674 ; Pain in left toe(s) M79.675 ; Plantar wart B07.0 ; Pain in left foot M79.672 and Tinea pedis of both feet B35.3 Assessments Encounter Date Diagnosis (ICD Code) Assessment Notes Treatment Notes Treatment Clinical Notes Section Notes 05/23/2024 Atherosclerosis of viejas artery of both lower extremities, with unspecified presence of clinical manifestation (ICD-10 - I70.203) 05/23/2024 Tinea unguium (ICD-10 - B35.1) 05/23/2024 Pain in right toe(s) (ICD-10 - M79.674) 05/23/2024 Pain in left toe(s) (ICD-10 - M79.675) 05/23/2024 Plantar wart (ICD-10 - B07.0) 05/23/2024 Pain in left foot (ICD-10 - M79.672) 05/23/2024 Tinea pedis of both feet (ICD-10 - B35.3) Plan Of Treatment Medication Medication Name Sig Start Date Stop Date Notes Ciclopirox Olamine 0.77 % 1 application Externally Twice a day to skin of feet including between the toes for 30 days Pending Test Test Name Order Date 44383-NFZGIGT NAIL, 1-05/23/2024 21339-Krit Destruction, -05/23/2024 11327-CRKY SKIN LESIONS, OVER 4 05/23/19 25 O9145-YNRBPMGE DYSTROPHIC NAILS ANY # Next Appt Details Follow Up: prn, Reason: Provider Name:Ben Yancey , 08/22/2024 09:30:00 AM, [address], [place], [address], Procedure Notes * Category Sub-Category Detail Notes Wart Treatment Procedure Verruca, as desc ribed in exam, were debrided to pin-point bleeding margins with sterile 15 surgical blade, silver nitrate chemocautery applied, recomm. immune-boosting meds such as zinc, recomm. follow up with topical chemosurgical agents, Pt defers any other forms of tx - 48629 Keratoma Treatment Parring or Cutting o f Benign Hyperkeratotic Lesion(s) (-57) More than 4 Lesions - Due to the at risk nature of the patients medical condition as documented in the exam findings, performance of this keratoderma treatment is medically necessary as its management by an unskilled/untrained nonprofessional would put this patients foot and overall health at risk. Therefore, the benign hyperkeratotic lesions, ( 6 ) in total, locations as stated and described in the exam ( Plantar , T5 , Plantar , T6 , SUB MTH (s) , 1 , B/L , Plantar, Heel(s) , B/L ), were pared, and/or cut utilizing a sterile 15 blade, tissue nippers, and/or power dremel instrumentation by the physician of record - 18965, Q8 Debride Nails 1-5 Procedure: Due to the cli nical pathology outlined in the exam findings, performance of this nail treatment is medically necessary as its management by an unskilled/untrained nonprofessional would put this patients foot and overall health at risk. Therefore, debridement to affected nail(s), as described in exam ( TA , T5 ), was performed exclusively by the physician of record to reduce/remove overall nail length, girth, thickness, subungual debris, and necrotic tissue, by manual and/or electrical means through the use of a nail nipper and/or dremel stylegrinder, to a more viable healthy nail plate or bed tissue 5 nails or fewer in number. Silver nitrate was used for any petechial bleeding as necessary. Definitive antifungal treatment options, both pharmaceutical and surgical, have been reviewed and discussed with the patient. The patient solely prefers the use of intermittent/as needed professional debridement services for their nail condition and understands that additional periodic treatments may be required as necessary to maintain effective symptomatic relief - 56706 Nail Reduction Nail Reduction (-27) Trimming o f all dystrophic nails - Due to the at risk nature of the patients medical condition as documented in the exam findings, performance of this nail treatment is medically necessary as its management by an unskilled/untrained nonprofessional would put this patients foot and overall health at risk. Therefore, the dystrophic nails, in locations as stated and described in the exam ( T1, T2, T3, T4, T6, T7, T8, T9 ), were debrided by the phisician of record to reduce/remove overall nail length and girth, by manual and electrical means with use of a nail nipper and/or dremel, to more viable healthy nail plate or bed tissue - G0127, Q8 Progress Notes * Yrn CARUSO RDOB:[birth year] (68 yo M)Acc No.[id number]:05/23/2024 Progress Note Patient:?Yrn CARUSO R Provider:?Ben Yancey DPM :1955???Age:68 Y???Sex:Male Jeffry e:05/23/2024 Address:[address] [place], [place] [id number] Pcp:Clifton Ray MD Subjective: * Chief Complaints: * ???At Risk FootcarePainful N ail(s) aggrevated by shoes and causing difficulty standing/walking.Wart(s)Skin Problem * HPI: ???At Risk footcare:?Pt States Last PCP Visit:?Date?01/09/2024 ???Skin problems:?Nature:?scaling , redness.?Location:?B/L .?Duration:?several days.?Course:?worse.? * ROS:?General/Constitutional:?Nausea?denies.?Vomiting?denies.?Hunger Thirst?denies.?Loss appetite?denies.?Chills?denies.?Fatigue?admits.?Fever?denies.?Night Sweats?admits.?Unexplained weight loss?denies.?Unexplained weight gain?denies.?HEENTM:?Dentures?admits.?Dizziness?denies.?Glasses/contacts?admits.?Retinopathy?de nies.?Blurred/double vision?denies.?TMJ?denies.?Discharge/drainage?denies.?Implants?denies.?Sore throat?denies.?Dental implants?denies.?Hard of hearing ?denies.?Difficulty chewing/swallowing/speaking?denies.?Nose bleeds?denies.?Sore mouth?denies.?Respiratory:?On Oxygen?denies.?Pneumonia/pleurisy?denies.?Bronchitis?denies.?Emphysema?denies.?C oughing?denies.?Cough blood?denies.?Shortness of breath?denies.?Wheezing?admits.?Cardiovascular:?Pacemaker?denies.?MVP?denies.?WPW?denies.?CHF?denies.?Heart attack?denies.?Septal defect?denies.?Rapid beat?denies.?Chest pain ?denies.?Atrial Fib.?denies.?Murmur/Palpitations?denies.?Gastrointestinal:?Hemorrhoids?admits.?Stomach/Abdominal pain?admits.?Dark blood stool?admits.?Irritable bowel ?denies.?Constipation?denies.?Diarrhea?denies.?Hematology:?Swelling?admits.?Clots?denies.?Varicose Veins?admits.?Bruising?denies.?Bleeding problem?admits.?Genitourinary:?Blood urine?denies.?Frequent/Painfu/urination/bladder control?admits occasionally.?Kidney stones?denies.?Infection (UTI)?denies.?Nephropathy?denies.?sex trans dis (STD)?denies.?Prostate?denies.?Musculoskeletal:?Hammertoes?denies.?Bunions?denies.?Back Pain?admits.?Muscle Cramps/ Resting?admits.?Muscle cramps / walking?admits.?Generalized aches and pains?denies.?Weakness?denies.?Integ.:?Reid?denies.?Scars?admits.?Corns/calluses?admits.?Ingrown nails?admits.?Painful nails?admits.?Open Sores?denies.?Rashes?admits.?Neurologic:?Difficulty sleeping?admits.?Brain disorder?denies.?Numbness?admits.?Balance trouble?admits.?Confusion?denies.?Fainting/blackouts?denies.?Tingling?admits.?Tr emors?denies.? * Medical History:? * Surgical History:?left knee replacement right knee replacement foot surgery varicose veins right leg umbilical hernia repair * Hospitalization/Major Diagno stic Procedure:?MRI Cervical spine 2017MRI repeat Cervical spine 11/03/2018Colonoscopy 05/2023[facility]- head cold, on antibiotics 03/2024 * Family History:?Mother: kit e, heart attack, cancer, diagnosed with Diabetic - NIDDM.?Father: , cancer.?Spouse: alive.? * Social History:?Tobacco Use:?Tobacco use other than smoking?Are you an other tobacco user??No ?Tobacco Control (Standard)?Tobacco use:?Nonsmoker ?Additional Findings: Tobacco non-user?Current nonsmoker ???Drugs/Alcohol:?Drugs?Have you used drugs other than those for medical reasons in the past 12 months??No ?Alcohol Screen?Did you have a drink containing alcohol in the past year??No ?Points?0 ?Interpretation?Negative ???Miscellaneous:?Caffeine: yes, frequency: , 2-3 cups per day. ?Exercise: no. ?Marital status: . ?Occupation: Disabled, retired. * Medications:?TakingGabapenti n 300 MG Capsule 1 capsule Orally Three times a day Niacin 500 MG Tablet 1 tablet with food Orally At bedtime Nystatin oxyCODONE-Acetaminophen 5-325 MG Tablet 1 tablet as needed Orally every 6 hrs Simvastatin Vitamin D3 Taking Gabapentin 300 MG Capsule 1 capsule Orally Three times a day Taking Niacin 500 MG Tablet 1 tablet with food Orally At bedtime Taking Nystatin Taking oxyCODONE-Acetaminophen 5-325 MG Tablet 1 tablet as needed Orally every 6 hrs Taking Simvastatin Taking Vitamin D3 Not-Taking/PRNOmeprazole 20 MG Capsule Delayed Release 1 capsule 30 minutes before morning meal Orally Once a day Medication List reviewed and reconciled with the patientNot-Taking/PRN Omeprazole 20 MG Capsule Delayed Release 1 capsule 30 minutes before morning meal Orally Once a day Medication List reviewed and reconciled with the patient * Allergies:?N.K.D.A.yes[Aller gies Verified] Objective: * Vitals:?Ht: 5ft 8in, Wt:220, BMI:33.45, Shoe size: 10-10.5, BP:131/71mm Hg, Ht- cm: 172.72 cm, Wt-k.79 kg. * Examination: ???Vascular: ?DP PULSES (B):? 0/4, B/L.?PT PULSES (B):? 0/4, B/L.?CAPILLARY FILL TIME:? delayed, all digits, B/L.?TROPHIC CONDITION-TEXTURE/ELASTICITY/TURGOR/HAIR GROWTH (B):? decreased,?with sparse to absent hair growth, B/L.?TEMPERTURE GRADIENT (C):? decreased, cool to cool, proximal to distal, B/L.?PIGMENTATION:?mottled, B/L.?EDEMA (C):?1/ , non-pitting , B/L , Leg(s) , Ankle(s) , Feet.?CLAUDICATION (C):?denies, B/L.?REST PAIN:?denies, B/L.?Nails: ?NAILS are:?Elongated, overgrown, dystrophic, lytic, greater than 3mm thick, discolored and friable with crumbly malodorous subungual debris, with pain on palpation , TA , T5, all other nails not described with characteristics as possessing mycosis are elongated, overgrown, and dystrophic (?T1, T2, T3, T4, T6, T7, T8, T9?).?Dermatologic: ?SKIN FINDINGS:?Skin exam reveals Keratotic lesion(s) located at , Plantar , T5 , Plantar , T6 , SUB MTH (s) , 1 , B/L , Plantar, Heel(s) , B/L , Skin shows sign(s) of, erythema, scaling, in a moccasin fashion, no fissure(s) present, B/L.?VERRUCA:?Reveals a Single , multi-loculated , mosaic-patterned, round, raised, flat-topped, petechial bleeding papule(s), with cauliflower appearance and interruption of skin lines, pain to lateral compression, and size estimated at 4mm diameter , plantar Forefoot , LEFT.? Assessment: * Assessment: 1.?Tinea unguium - B35.1???2 .?Atherosclerosis of viejas artery of both lower extremities, with unspecified presence of clinical manifestation - I70.203 (Primary)???3.?Pain in right toe(s) - M79.674???4.?Pain in left toe(s) - M79.675 ??5.?Plantar wart - B07.0???Specify :LEFT???6.?Pain in left foot - M79.672???7.?Tinea pedis of both feet - B35.3???Specify :Acute problem, Uncomplicated (3),Rx drug management (4)??? Plan: * Treatment: 2.?Tinea unguium?Procedure: 36618-DONUASU NAIL, 1-5 3.?Plantar wart?Procedure: 79244-Plis Destruction, 1-14 4.?Tinea pedis of both feet? Start Ciclopirox Olamine Cream, 0.77 %, 1 application, Externally, Twice a day to skin of feet including between the toes, 30 days, 120, Refills 3.?? * Procedures:?Debride Nails 1-5:?Procedure:?Due to the clinical pathology outlined in the exam findings, performance of this nail treatment is medically necessary as its management by an unskilled/untrained nonprofessional would put this patients foot and overall health at risk. Therefore, debridement to affected nail(s), as described in exam (?TA?,?T5?), was performed exclusively by the physician of record to reduce/remove overall nail length, girth, thickness, subungual debris, and necrotic tissue, by manual and/or electrical means through the use of a nail nipper and/or dremel stylegrinder, to a more viable healthy nail plate or bed tissue 5 nails or fewer in number. Silver nitrate was used for any petechial bleeding as necessary. Definitive antifungal treatment options, both pharmaceutical and surgical, have been reviewed and discussed with the patient. The patient solely prefers the use of intermittent/as needed professional debridement services for their nail condition and understands that additional periodic treatments may be required as necessary to maintain effective symptomatic relief - 91976.?Keratoma Treatment:?Parring or Cutting of Benign Hyperkeratotic Lesion(s)?(-57) More than 4 Lesions - Due to the at risk nature of the patients medical condition as documented in the exam findings, performance of this keratoderma treatment is medically necessary as its management by an unskilled/untrained nonprofessional would put this patients foot and overall health at risk. Therefore, the benign hyperkeratotic lesions, ( 6 ) in total, locations as stated and described in the exam (?Plantar?,?T5?,?Plantar?,?T6?,?SUB MTH (s)?,?1?,?B/L?,?Plantar,?Heel(s)?,?B/L?), were pared, and/or cut utilizing a sterile 15 blade, tissue nippers, and/or power dremel instrumentation by the physician of record - 31100, Q8.?Wart Treatment:?Procedure?Verruca, as described in exam, were debrided to pin-point bleeding margins with sterile 15 surgical blade, silver nitrate chemocautery applied, recomm. immune-boosting meds such as zinc, recomm. follow up with topical chemosurgical agents, Pt defers any other forms of tx - 33024.?Nail Reduction:?Nail Reduction?(-27) Trimming of all dystrophic nails - Due to the at risk nature of the patients medical condition as documented in the exam findings, performance of this nail treatment is medically necessary as its management by an unskilled/untrained nonprofessional would put this patients foot and overall health at risk. Therefore, the dystrophic nails, in locations as stated and described in the exam (?T1, T2, T3, T4, T6, T7, T8, T9??), were debrided by the phisician of record to reduce/remove overall nail length and girth, by manual and electrical means with use of a nail nipper and/or dremel, to more viable healthy nail plate or bed tissue - G0127, Q8.? * Procedure Codes:?25380 Wart Destruction, 1-14, Modifiers: XS G0127 TRIMMING DYSTROPHIC NAILS ANY #, Modifiers: XS , C248257 DEBRIDE NAIL, 1-5, Modifiers: XS 77790 TRIM SKIN LESIONS, OVER 4, Modifiers: XS , Q8 * Preventive Medicine:? ??Counseling:?Discussion:?-13: Office or other outpatient visit for the evaluation and management of an established patient, which required a medically appropriate history and/or examination and LOW level of DECISION MAKING for: 1 STABLE ACUTE UNCOMPLICATED PROBLEM, 2 OR MORE MINOR PROBLEMS, OR 1 STABLE CHRONIC PROBLEM, THAT POSE(S) A LOW RISK FOR MORBIDITY/MORTALITY. The visit on the day of the encounter encompassed interpreting the data and educating the patient as to the nature of their condition, treatment options available according to their individual PMH, meds, allergies, and overall health/living conditions, as well as any potential risks or complications that may occur from a failure to adhere to, and participate in, the recommended course of therapy. The discussion included a complete verbal, and/or written explanation of the examination results, any x-rays taken, the proposed diagnosis, and outline of the treatment plan. A schedule for future care needs was also explained. The patient verbalized an understanding of the instructions at this time and agreed to be an active participant in their treatment. If the patient should think of any questions or concerns after the visit, I have encouraged the patient to call the office.?Tinea Pedis:?The patient was counseled on the diagnosis, potential etiologies, and treatment options for their skin condition. We discussed the risks and benefits of each option from performing no treatment, to utilizing OTC topical skin creams, prescription topical creams, customized compounded topical medications, and, if necessary, to utilize oral antifungal therapy. We discussed the advantages and disadvantages of each possible treatment and importance for adherence to all the recommended therapies for optimum success and avoid potential complications such as open sore/infection/possible hospitalization. We discussed the potential effectiveness of each topical preparation as well as each ones possible side effects and/or patient medication interactions if oral therapy is selected. Patient questions re: the advantages and disadvantages of each treatment choice, medication use/dosage, successful outcomes, and application consistency were reviewed and the patient verbalized that all answers were clearly understood. The patient was told they can help alleviate symptoms by utilizing moisture absorbant innersoles with activated charcoal and baking soda, applying antifungal sprays daily, aerating toe web spaces at night by putting cotton or lambs wool between the toes, alternating shoe gear daily if possible so they can dry out, changing socks at least once during the day, wearing well-ventilated shoes or sandals. The patient has decided to apply antifungal skin creams to their feet as directed. Rx was sent to their pharmacy at the time of visit.? ??Screening/Special Tests:?Fall Risk?Screening:?No falls in the past year ?FALLS: Screening for Future Fall Risk?Have you had any falls with injury in the past year??No * Follow Up:?prn * Images: * Sign off status: Completed true * Provider:?Ben Yancey DPM Date:?2024 Generated for Ligia rouse/Jersey/Dex on:?07/27/2024 11:38 AM EDT History and Physical Notes * HPI (History of Present Illness) Category Sub-Category Detail Notes Category Not es Skin problems Nature: scaling , redness Location: B/L Duration: several days Course: worse At Risk footcare Pt States Last PCP Visit: Date: 4 Examination Category Sub-Category Detail Notes Category Not es Dermatologic SKIN FINDINGS: Skin exam reveal s Keratotic lesion(s) located at , Plantar , T5 , Plantar , T6 , SUB MTH (s) , 1 , B/L , Plantar, Heel(s) , B/L , Skin shows sign(s) of, erythema, scaling, in a moccasin fashion, no fissure(s) present, B/L VERRUCA: Reveals a Single , m ulti-loculated , mosaic-patterned, round, raised, flat-topped, petechial bleeding papule(s), with cauliflower appearance and interruption of skin lines, pain to lateral compression, and size estimated at 4mm diameter , plantar Forefoot , LEFT Vascular DP PULSES (B): 0/4, B/L PT PULSES (B): 0/4, B/L CAPILLARY FILL TIME: delayed, all digits , B/L TEMPERTURE GRADIENT (C): decreased, cool to cool, proximal to distal, B/L TROPHIC CONDITION-TEXTURE/ELASTICITY/TURGOR/HAIR GROWTH (B): decreased, with sparse to absent hair gr owth, B/L EDEMA (C): 1/4 , non-pitting , B/L , Leg(s) , Ankle(s) , Feet CLAUDICATION (C): denies, B/L REST PAIN: denies, B/L PIGMENTATION: mottled, B/L Nails NAILS are: Elongated, overg rown, dystrophic, lytic, greater than 3mm thick, discolored and friable with crumbly malodorous subungual debris, with pain on palpation , TA , T5, all other nails not described with characteristics as possessing mycosis are elongated, overgrown, and dystrophic ( T1, T2, T3, T4, T6, T7, T8, T9 )
--- OUTSIDE RECORDS SUMMARY | 2024-07-27 11:38 | XMS_ITS ---
Author Organization [facility] Address [address] [place] [id number] Care Team Providers Care Material Processor Name Role Phone Cory ROMERO, [place] Primary Care Provider Unava ilable Wally Garcia Unavailable [phone] REASON FOR VISIT New insurance? Encounters Encounter Location Date Provider Diagnosis [facility] [address] [place] [phone] 05/04/2023 Wally Garcia Plan Of Treatment No Information Progress Notes * ZULY AVADOB:1955 (67 yo M)Acc No.[id number]:05/04/2023 Patient:?AVA CARUSO :1955???Age:67 Y???Sex:Male Address:[address] [place] [id number] * true * Date:? Generated for Ligia rouse/[place]/eTransmitting on:?07/27/2024 11:37 AM EDT
== END 2024-07-27 10:51 | disposition home or self-care (01) ==
LOC: HO.HMCH 10:13
PROVIDERS: PCP Internal Medicine; Visit Provider Internal Medicine
DX: E78.2 Mixed hyperlipidemia (principal); R73.01 Impaired fasting glucose; R03.0 Elevated blood-pressure reading, without diagnosis of hypertension; R79.89 Other specified abnormal findings of blood chemistry; M51.360 Other intervertebral disc degeneration, lumbar region with discogenic back pain only; M50.30 Other cervical disc degeneration, unspecified cervical region; M17.0 Bilateral primary osteoarthritis of knee; R10.30 Lower abdominal pain, unspecified; K42.9 Umbilical hernia without obstruction or gangrene; K21.9 Gastro-esophageal reflux disease without esophagitis; J30.1 Allergic rhinitis due to pollen; E55.9 Vitamin D deficiency, unspecified

== ENCOUNTER → 2024-07-27 10:12 | Outpatient (BNVA) | payer MEDICARE, MEDICAID, SELFPAY | PROVIDERS: PCP Internal Medicine; Visit Provider Internal Medicine | DX: E78.2 Mixed hyperlipidemia (principal); R73.01 Impaired fasting glucose; R03.0 Elevated blood-pressure reading, without diagnosis of hypertension; R79.89 Other specified abnormal findings of blood chemistry; M51.360 Other intervertebral disc degeneration, lumbar region with discogenic back pain only; M50.30 Other cervical disc degeneration, unspecified cervical region; M17.0 Bilateral primary osteoarthritis of knee; R10.30 Lower abdominal pain, unspecified; K42.9 Umbilical hernia without obstruction or gangrene; K21.9 Gastro-esophageal reflux disease without esophagitis; J30.1 Allergic rhinitis due to pollen; E55.9 Vitamin D deficiency, unspecified; R35.0 Frequency of micturition; I83.813 Varicose veins of bilateral lower extremities with pain; E66.9 Obesity, unspecified; E78.00 Pure hypercholesterolemia, unspecified; D64.9 Anemia, unspecified; R30.0 Dysuria; Z68.36 Body mass index [BMI] 36.0-36.9, adult | CPT/HCPCS: 96127; 99212 ==

== ENCOUNTER 2024-11-29 08:18 | Outpatient (REF) | payer MEDICARE, MEDICAID, SELFPAY ==
--- OUTSIDE RECORDS SUMMARY | 2023-06-10 11:10 | XMS_ITS ---
Author Organization [facility] Address [address] [place] [id number] Care Team Providers Care Reprint Sorter Name Role Phone Cory ROMERO, [place] Primary Care Provider Unava Wally Dotson Unavailable [phone] REASON FOR VISIT screening,hx polyps Problems Problem Type SNOMED Code ICD Code Onset Dates Problem Status W/U Status Risk Notes Problem Diverticulosis o f large intestine without perforation or abscess without bleeding (K57.30) Active confirmed Encounters Encounter Location Date Provider Diagnosis [facility] Outpatient [address] [place] [phone] 06/10/2023 Wally Garcia Encounter for scre ening colonoscopy Z12.11 ; Colon polyps K63.5 ; Diverticulosis of large intestine without perforation or abscess without bleeding K57.30 and Other hemorrhoids K64.8 Assessments Encounter Date Diagnosis (ICD Code) Assessment Notes Treatment Notes Treatment Clinical Notes Section Notes 06/10/2023 Encounter for screening colonoscopy (ICD-10 - Z12.11) 06/10/2023 Colon polyps (ICD-10 - K63.5) 06/10/2023 Diverticulosis of large intestine without perforation or abscess without bleeding (ICD-10 - K57.30) 06/10/2023 Other hemorrhoids (ICD-10 - K64.8) Plan Of Treatment No Information Progress Notes * AVA CARUSODOB:1955 (69 yo M)Acc No.[id number]:06/10/2023 COLON WITH MAC Patient: Vicente ABDIAVA SCALES Provider: Rufus Garcia MD :1955 A ge:67 Y S ex:Male Date:06/10/2023 Address:[address] [place] [address] Pcp:Clifton Ray MD Subjective: * Chief Complaints: * 1 . Screening,hx polyps. * Medical History: Objective: * Vitals: Assessment: * Assessment: 1. E ncounter for screening colonoscopy - Z12.11 (Primary) 2 . C olon polyps - K63.5 3 . D iverticulosis of large intestine without perforation or abscess without bleeding - K57.30 4 . O ther hemorrhoids - K64.8 Plan: * Treatment: * Procedure Codes: 4 5380 COLONOSCOPY AND BIOPSY, Modifiers: PT , 0529F INTRVL 3+YRS PTS CLNSCP DOCD, 0528F RCMND FLW-UP 10 YRS DOCD, Modifiers: 1P * * The named appointment provid er may or may not be the originator of this progress note, and it is not deemed complete until electronically signed by the appointment provider. Sign off status: Pending * Provider: Rufus Garcia MD Date: 0 06/10/2023 Generated for Ligia rouse/[place]/Cynthiasmitting on: 0 11/29/2024 08:24 AM EDT
--- OUTSIDE RECORDS SUMMARY | 2024-11-29 08:24 | XMS_ITS | Clinical Summary ---
Author Organization [facility] Address [address] [place] [address] Phone Care Team Providers Care Hand Tennis Ball Coverer Name Role Phone Clifton Ray MD Primary Care Provider + [phone] Allergies No known active allergies Medications No [...] 68 03/31/2024 3:03 PM EST Temperature 37 C (98.6 F) 03/31/2024 3:03 PM EST Respiratory Rate 18 [...] Vaccines (1 of 2) 2006 COVID-19 Vaccine (2023-2 5 season) 2023 Abdominal Aortic Aneurysm (A AA) Screen 03/31/2024 Cholesterol Screening (Lipid Panel) 03/31/2024 Colorectal Cancer Screening: Colonoscopy 03/31/2024 Falls Risk Assessment 03/31/2024 Hepatitis C Screening 03/31/2024 Medicare Annual Wellness Visit 03/31/2024 Social Influencers of Health Screening 03/31/2024 Depression Screening 04/25/2024 Influenza Vaccine (#1) 2024 RSV Immunization Adult Patie nts (1 [...] age to complete this topic Meningococcal B Vaccine Aged Out No l onger eligible based on patient's age to complete this topic RSV Immunization Patients Un vidhya 20 months Aged Out No longer eligible b ased on patient's age to complete this topic Varicella Vaccines Aged Out No longer eligible based on patient's age to complete this topic Insurance MEDICARE MEDICAID - [place] Care Teams Hand Tennis Ball Coverer Relationship Specialty Start Date End Date Clifton Ray MD PCP - General Internal Medicine 03/31/24
[2024-11-29 08:31] LABS: MANUAL DIFF FLAG NO
[2024-11-29 08:39] LABS: Hematocrit 49.1 % (42.0-52.0); Hemoglobin 15.9 g/dl (14.0-18.0); Imm Gran Abs Auto 0.02 X10*3/uL (0.00-0.03); Imm Gran Pct Auto 0.3 % (0.0-0.4); Lymphocytes Absolute Auto 1.9 X10*3/uL (1.2-4.9); Mean Corpuscular HGB Conc 32.4 g/dl (31.0-36.0); Mean Corpuscular Hemoglobin 30.3 pg (27.0-33.0); Mean Corpuscular Volume 93.5 fL (80.0-98.0); NRBC Abs Auto 0.000 X10*3/uL (0.0-0.012); NRBC Pct Auto 0.0 /100WBC (0.0-0.2); Platelet Count 167 X10*3/uL (160-400); Red Blood Count 5.25 X10*6/uL (4.60-5.80); White Blood Count 5.8 X10*3/uL (4.8-10.8)
[2024-11-29 08:49] LABS: Hemoglobin A1C 166.8870 umol/L; Total Hemoglobin (HGBA1C) 4099.6071 umol/L
[2024-11-29 09:11] LABS: Alanine Aminotransferase 41 U/L (0-40); Albumin Level 4.4 g/dL (3.5-5.0); Alkaline Phosphatase 69 U/L (39-117); Anion Gap 10 (12-20); Aspartate Amino Transferase 51 U/L (5-37); Blood Urea Nitrogen 11 mg/dL (9-16); Calcium 9.3 mg/dL (8.4-10.2); Carbon Dioxide 35 mmol/L (22-29); Chloride 103 mmol/L (96-108); Cholesterol 120 mg/dL (<200); Estimated Glomerular Filt Rate > 60; HDL Cholesterol 32 mg/dL (>40); Potassium 4.8 mmol/L (3.3-5.1); Sodium 143 mmol/L (135-145); Total Protein 7.9 g/dL (6.5-8.0); Triglycerides 120 mg/dL (<150)
[2024-11-29 09:58] LABS: Appearance Urine Clear; Glucose Urine UA Negative (Negative); PH 6.0 (5.0-9.0); Specific Gravity - Urine 1.020 (1.005-1.025)
== END 2024-11-29 08:19 | disposition home or self-care (01) ==
LOC: HO.LAB 08:18
PROVIDERS: PCP Internal Medicine; Visit Provider Internal Medicine
DX: R73.01 Impaired fasting glucose (principal); E78.00 Pure hypercholesterolemia, unspecified; D64.9 Anemia, unspecified; E55.9 Vitamin D deficiency, unspecified; R30.0 Dysuria
CPT/HCPCS: 36415; 80053; 80061; 81003; 82306; 83036; 84443; 85025

== ENCOUNTER 2024-12-06 09:41 | Outpatient (AMB) | payer MEDICARE, MEDICAID, SELFPAY ==
--- OUTSIDE RECORDS SUMMARY | 2023-06-10 11:10 | XMS_ITS ---
Author Organization [facility] Address [address] [place] [id number] Care Team Providers Care Telephone Interceptor Operator Name Role Phone Cory ROMERO, [place] Primary Care Provider Unava Wally Dotson Unavailable [phone] REASON FOR VISIT screening,hx polyps Problems Problem Type SNOMED Code ICD Code Onset Dates Problem Status W/U Status Risk Notes Problem Diverticulosis o f large intestine without perforation or abscess without bleeding (K57.30) Active confirmed Encounters Encounter Location Date Provider Diagnosis [facility] Outpatient [address] [place] [phone] 06/10/2023 Wally Garcia Encounter for scre ening [...] Notes * AVA CARUSODOB:1955 (69 yo M)Acc No.[id number]:06/10/2023 COLON WITH MAC Patient: Vicente ABDIAVA SCALES Provider: Rufus Garcia MD :1955 A ge:67 Y S ex:Male Date:06/10/2023 Address:[address] [place] [address] Pcp:Clifton Ray MD Subjective: * Chief Complaints: [...] 06/10/2023 Generated for Ligia rouse/[place]/Cynthiasmitting on: 0 12/06/2024 10:23 AM EDT
[2024-12-06 09:46] VITALS: BP 122/84; PULSE 52; O2SAT 93; BMI 36.0
--- NOTE | 2024-12-06 09:46 | MHC.PC.OV ---
Vital Signs 12/06/24 09:46 Height 5 ft 5.8 in Weight 222 lb BMI 36.0 BP 122/84 Blood Pressure Location Lt brachial Position Sitting Pulse 52 Pulse Source Pulse Oximeter Pulse Oximetry (%) 93 Oxygen Delivery Method Room Air Intake Visit Reasons: 3mth f/u Senior Program Planner Required: No Accompanied by: Self / Same As Patient Allergies No Known Allergies Allergy (Verified 12/06/24 10:13) Medication List - Last Reconciled 12/06/24 by Clifton Ray MD cholecalciferol (vitamin D3) 25 mcg PO DAILY gabapentin 300 mg PO TID [LIGHTWEIGHT ELECTRIC MOTORIZED SCOOTER As directed] loratadine 10 mg PO DAILY PRN 90 days niacin 500 mg PO BEDTIME oxycodone-acetaminophen 5-325 mg 1 tab PO Q6H PRN 28 days simvastatin 20 mg PO BEDTIME Tobacco use date assessed: 12/06/24 Fall risk assessment: No Falls in past year Last assessed Fall Risk: 12/06/24 Dental Screening Dental Screen Date: 12/06/24 Did you have a dental visit in the last 12 months?: No Did you have a dental problem in the last 6 months where you did not have access to dental care?: No Was dental information given to patient?: No HPI 3mth f/u HPI Details Patient comes in today for his follow up visit States that he feels okay He denies any headaches or dizziness; denies any fever or sore throat Denies any chest pains; no increased SOB but states that he's had a recurrent productive cough for about 2 months now Notes that his cough seems to be worse at night, especially when he lies down States that he coughs up thick yellowish to whitish phlegm often States that he has tried taking some OTC cough meds for the past week or two with minimal relief No nausea/vomiting, no abdominal pain No change in bowel habits noted States that his chronic low back pain and joint pains remain adequately controlled on his current Rx - will need his pain med Rx refilled today He had his follow up labs done last week - to discuss his results [facility] Medical History Varicose veins of bilateral lower extremities with pain Hx of rotator cuff tear Back pain Hyperlipidemia Hx of degenerative disc disease DVT (deep venous thrombosis) Internal hemorrhoid Diverticulosis Constipation Urinary frequency Obesity (BMI 30-39.9) GERD without esophagitis Vitamin D deficiency Degenerative arthritis of knee, bilateral Degenerative disc disease, cervical Lumbar degenerative disc disease Impaired fasting glucose Mixed hyperlipidemia Surgical History Hx of excision of mass Hx of varicose vein stripping Hx of umbilical hernia repair Hx of foot surgery History of ankle surgery History of esophagogastroduodenoscopy (EGD) History of colonoscopy History of knee replacement procedure of right knee History of knee replacement procedure of left knee Family History Father Cancer Mother Diabetes Social History Housing: House Alcohol intake: never Patient Tobacco Use Status: Former Tobacco user e-Cigarette/Vaping Use: Never Used Second Hand Smoke Exposure: Yes service: No Current occupational status: disabled Cognitive needs: Yes (cane) Hearing needs: No Vision needs: Yes Questionnaire PHQ-9 Over the last 2 weeks, how often have you been bothered by any of the following problems? 1. Little interest or pleasure in doing things: more than half the days 2. Feeling down, depressed, or hopeless: not at all 3. Trouble falling or staying asleep, or sleeping too much: not at all 4. Feeling tired or having little energy: not at all 5. Poor appetite or overeating: not at all 6. Feeling bad about yourself - or that you are a failure or have let yourself or your family down: not at all 7. Trouble concentrating on things, such as reading the newspaper or watching television: not at all 8. Moving or speaking so slowly that other people could have noticed. Or the opposite - being so fidgety or restless that you have been moving around a lot more than usual: not at all 9. Thoughts that you would be better off or of hurting yourself in some way: not at all Total score: 2 Depression Screening Interpretation: Negative Depression Screening Done: Yes 43399 - PHQ-9 Billing: Yes Source: Developed by Drs. Wally Payan, Adrianne Emmanuel, Kian Villavicencio and colleagues, with an educational rolly from [employer]. Thrive Questionnaire Date Thrive assessed: 12/06/24 I am a: Patient What is your living situation today?: I have a steady place to live Within the past 12 months, did the food you bought not last and you didn't have the money to get more?: Never true Within the past 12 months, did you worry whether your food would run out before you got money to buy more?: Never true Do you have trouble paying for medicines?: No Do you have trouble getting transportation to medical appointments?: No Do you have trouble paying your heating and electricity bill?: No Do you have trouble taking care of your child, family member or friend?: No Do you have trouble with day-to-day activities such as bathing, preparing meals, shopping, managing finances, etc.?: No Are you currently unemployed and looking for a job?: No Are you interested in more education?: No Please select the resources that you would like help with: None Currently or been in a relationship where the following occur: No concerns reported THRIVE Score: 0 AUDIT C Alcohol Use Questionnaire (AUDIT-C) 1. How often do you have a drink containing alcohol?: Never 3. How often do you have six or more drinks on one occasion?: Never Total Score: 0 Score Reviewed/Action Taken: Yes PHYLLIS-7 AMB Questionnaire PHYLLIS-7 Date PHYLLIS - 7 assessed: 12/06/24 Feeling nervous, anxious, or on edge: 0 = Not at all Not being able to stop or control worryin = Not at all Worrying too much about different things: 0 = Not at all Trouble relaxin = Several days Being so restless that it is hard to sit still: 1 = Several days Becoming easily annoyed or irritable: 1 = Several days Feeling afraid as if something awful might happen: 0 = Not at all Total PHYLLIS-7 score (0-4 normal; 5-9 mild; 10-14 moderate; 15-21 severe): 3 Source: Developed by Drs. Wally aPyan, Adrianne Emmanuel, Kian Villavicencio and colleagues, with an educational rolly from [employer]. Review of Systems Const Denies chills, Reports fatigue, Denies fever(s) and Denies headache(s) ENT Denies dysphagia, Denies dizziness, Denies otalgia, Denies headache(s), Reports neck pain (chronic), Denies odynophagia and Denies sore throat Card Denies chest pain, Denies palpitations and Denies dyspnea Resp Reports chest congestion, Reports cough (recurrent productive cough - see HPI for details), Denies dyspnea and Denies wheezing GI Details: (+) umbilical hernia and right inguinal hernia Reports abdominal pain (over the inguinal areas - chronic), Reports constipation (on and off), Denies dysphagia, Denies heartburn, Denies diarrhea, Denies nausea, Denies odynophagia and Denies vomiting Details: (+) bilateral inguinal pain Denies hematuria, Reports difficulty urinating (at times), Denies dysuria, Reports urinary frequency and Reports urinary incontinence (occasionally) Musc Reports back pain (over the lumbar spine - chronic), Reports arthralgias (both knees) and Reports neck pain (chronic) Skin/Breast Denies rash Neuro Denies dizziness and Denies headache(s) Endo Reports fatigue and Denies palpitations Quintin/Lymph Details: (+) varicose veins over both lower extremities, with on and off pain lately Aller/Immun Reports seasonal rhinorrhea and Denies wheezing Physical exam (Primary Care) Vital Signs: Last Vital Signs Pulse 52 12/06/24 09:46 BP 122/84 12/06/24 09:46 Pulse Ox 93 12/06/24 09:46 Oxygen Delivery Method Room Air 12/06/24 09:46 BMI result Body Mass Index 36.0 Tobacco/Smoking Status: Tobacco use Status Tobacco use date assessed 12/06/24 12/06/24 09:49 Patient Tobacco Use Status Former Tobacco user 12/06/24 09:49 e-Cigarette/Vaping Use Never Used 12/06/24 09:49 PHQ-9: PHQ-9 Score PHQ-9: Total score 2 12/06/24 09:49 Depression Screening Interpretation: Negative Thrive Assessment: Date of Thrive Assessment Date Thrive assessed 12/06/24 12/06/24 09:49 Currently or been in a relationship where the following occur: No concerns reported Const General: no acute distress and alert HENMT Ears: TM's normal bilaterally and EAC's normal Throat: Yes posterior oropharynx normal and Yes tonsils normal (no TP congestion noted) Neck Neck: No lymphadenopathy and Yes tender Thyroid: Thyroid normal Resp Auscultation: no crackles, no rales, rhonchi (scattered) throughout, no wheezes and diminished lung sounds (slightly) bilateral Cardio Rate: regular rate Rhythm: regular rhythm Heart sounds: no murmurs GI Palpation (GI): Soft to palpation, nontender, no guarding, Hernia present (small) umbilical and No Rebound tenderness present Auscultation: normal bowel sounds Other: (+) bilateral inguinal tenderness, right > left General: Yes no CVA tenderness Back/Spine/Pelvis Back: no CVA tenderness Cervical Spine: Cervical spine tenderness Thoracic/Lumbar Spine: lumbar spinal tenderness (chronic) Skin Rashes: no rashes Extrem Other: (+) prominent varicosities over both lower extremities - some of these are slightly tender on deep palpation General: Yes no clubbing, cyanosis or edema Results Reviewed Results Reviewed: Laboratory Tests 11/29/24 11/29/24 08:24 08:25 WBC 5.8 Hgb 15.9 Hct 49.1 Plt Count 167 Sodium 143 Potassium 4.8 Creatinine 0.89 Estimated GFR > 60 Fasting Glucose 99 Hemoglobin A1c % 5.9 Calcium 9.3 AST 51 H ALT 41 H Triglycerides 120 Cholesterol 120 LDL Cholesterol, Calc 64 HDL Cholesterol 32 L 25-OH Vitamin D Total 42.5 TSH 1.88 Ur Specific [place] 1.020 Urine Protein Negative Urine Glucose (UA) Negative Urine Blood Negative Urine Nitrite Negative Ur Leukocyte Esterase Negative Coding Level of Care Code Est Pt Level 4 (79267) Diagnoses Mixed hyperlipidemia E78.2 Impaired fasting glucose R73.01 Elevated blood pressure reading without diagnosis of hypertension R03.0 Elevated LFTs R79.89 Degeneration of intervertebral disc of lumbar region with discogenic back pain M51.360 Disc-related pain type: discogenic back pain only Degenerative disc disease, cervical M50.30 Osteoarthritis of both knees, unspecified osteoarthritis type M17.0 Osteoarthritis type: unspecified Deep inguinal pain R10.30 Umbilical hernia without obstruction and without gangrene K42.9 Obstruction and gangrene presence: without obstruction or gangrene GERD without esophagitis K21.9 Seasonal allergic rhinitis due to pollen J30.1 Allergic rhinitis trigger: pollen Allergic rhinitis seasonality: seasonal Vitamin D deficiency E55.9 Urinary frequency R35.0 Varicose veins of bilateral lower extremities with pain I83.813 Obesity (BMI 30-39.9) E66.9 Additional Codes PHQ-9 - 51956 - PHQ-9 Billing: Yes ([id number]) Assessment & Plan Assessment & Plan (1) Mixed hyperlipidemia: Code(s): E78.2 - Mixed hyperlipidemia Category: Medical Plan: Results of his labs done last week reviewed and discussed with patient Reinforced low cholesterol diet Continue Simvastatin 20 mg QD and Niaspan ER 500 mg QHS Will recheck his labs and fasting lipids in 3 months for follow up (2) Impaired fasting glucose: Code(s): R73.01 - Impaired fasting glucose Category: Medical Plan: His HgbA1c was at 5.9% on his recent labs; it used to be normal at 5.6%, 5.4% and 5.7% when previously checked His FBS remains normal at 99 mg/dl on his recent labs Reinforced low calorie diet/exercise as tolerated (3) Elevated blood pressure reading without diagnosis of hypertension: Code(s): R03.0 - Elevated blood-pressure reading, without diagnosis of hypertension Category: Medical Plan: His blood pressure reading today is acceptable and is close to goal Reinforced low sodium diet Patient is reminded to continue monitoring his BP regularly (4) Elevated LFTs: Code(s): R79.89 - Other specified abnormal findings of blood chemistry Category: Medical Plan: Both of his LFTs are slightly higher than previous on his recent labs Patient is reminded again to avoid taking too much OTC Tylenol or Acetaminophen and to completely avoid drinking any alcohol Will continue to monitor his LFTs regularly and recheck his LFTs in 3 months for follow up (5) Lumbar degenerative disc disease: Comment: Repeat lumbar spine MRI done on 11/03/2018 revealed (+) mild to moderate multilevel chronic spondylosis of the lumbar spine without associated marked central or foraminal stenosis or evidence of direct nerve root impingement Code(s): M51.36 - Other intervertebral disc degeneration, lumbar region Category: Medical Qualifiers: Disc-related pain type: discogenic back pain only Qualified Code(s): M51.360 - Other intervertebral disc degeneration, lumbar region with discogenic back pain only Plan: Reinforced activity and weight-lifting restrictions Continue Gabapentin 300 mg TID and Cyclobenzaprine 10 mg TID PRN (6) Degenerative disc disease, cervical: Comment: Cervical spine MRI in October 2016 revealed a slight increase in his cervical spine spondylosis (multilevel) Repeat cervical spine MRI on 11/03/2018 showed stable appearing multilevel cervical spondylosis; multilevel degenerative changes resulting in varying degrees of moderate to severe foraminal stenosis throughout the cervical spine but there is no severe central canal stenosis. There is bone marrow edema within the left C2 and C3 facets most likely degenerative or inflammatory Code(s): M50.30 - Other cervical disc degeneration, unspecified cervical region Category: Medical Plan: Continue Oxycodone-Acetaminophen 5-325 mg every 6 hours as needed - Rx refilled Follow up with neurosurgery (Dr. Keller) as scheduled - he was reportedly presented with the option of either repeat cortisone injection (which patient declined) or ACDF previously, especially if patient's neck symptoms get worse - patient is still undecided as to which option he wants to choose but is leaning towards injection Tx (7) Degenerative arthritis of knee, bilateral: Comment: S/P bilateral knee arthroplasty Code(s): M17.0 - Bilateral primary osteoarthritis of knee Category: Medical Qualifiers: Osteoarthritis type: unspecified Qualified Code(s): M17.0 - Bilateral primary osteoarthritis of knee Plan: S/P bilateral knee arthroplasty - states that he has been doing well since his surgery Follow up with orthopedic as scheduled (8) Deep inguinal pain: Comment: Diagnosed as bilateral Inguinal Disruption Code(s): R10.30 - Lower abdominal pain, unspecified Category: Medical Plan: He has been receiving trigger point injections over the inguinal areas from Dr. Steinberg over the past few months with little relief and was referred for pelvic girdle assessment He is now going to [facility] in [place] - to continue following up with urology as scheduled He was also seen by surgery at [facility] a few months ago and was advised that he recently sustained bilateral groin injury that is causing his recent increased pain and advised that he does NOT have any hernias (9) Umbilical hernia: Code(s): K42.9 - Umbilical hernia without obstruction or gangrene Category: Medical Qualifiers: Obstruction and gangrene presence: without obstruction or gangrene Qualified Code(s): K42.9 - Umbilical hernia without obstruction or gangrene Plan: He has been seen by HOSEA Orlando of [facility] for this and was recommended for corrective surgery on an elective basis - he was advised to just call them to schedule this when he is ready to have surgery done Follow up with [facility] as scheduled (10) GERD without esophagitis: Code(s): K21.9 - Gastro-esophageal reflux disease without esophagitis Category: Medical Plan: Dietary restrictions reinforced Continue Omeprazole 20 mg QD (11) Allergic rhinitis: Code(s): J30.9 - Allergic rhinitis, unspecified Category: Medical Qualifiers: Allergic rhinitis trigger: pollen Allergic rhinitis seasonality: seasonal Qualified Code(s): J30.1 - Allergic rhinitis due to pollen Plan: Continue Loratadine 10 mg QD PRN (12) Vitamin D deficiency: Code(s): E55.9 - Vitamin D deficiency, unspecified Category: Medical Plan: Continue Vitamin D3 1000 units QD (13) Urinary frequency: Code(s): R35.0 - Frequency of micturition Category: Medical Plan: This is likely related to BPH Follow up with urology as scheduled (14) Varicose veins of bilateral lower extremities with pain: Code(s): I83.813 - Varicose veins of bilateral lower extremities with pain Category: Medical Plan: States that he had laser ablation done a couple of months ago with (+) relief/improvement of his symptoms Follow up with [facility] as scheduled for continuing management of his varicose veins (15) Obesity (BMI 30-39.9): Code(s): E66.9 - Obesity, unspecified Category: Medical Plan: Reinforced diet/exercise as tolerated/lose weight Plan Follow up in 3 months Orders: Orders Lipid Panel 3 Months E78.00 - Pure hypercholesterolemia, unspecified Vitamin D 25-OH Total 3 Months E55.9 - Vitamin D deficiency, unspecified Hemoglobin A1c 3 Months R73.01 - Impaired fasting glucose Complete Blood Count Auto Diff 3 Months D64.9 - Anemia, unspecified Comprehensive [place]. Panel Fast 3 Months E78.00 - Pure hypercholesterolemia, unspecified TSH reflex Free T4 3 Months E78.00 - Pure hypercholesterolemia, unspecified UA CC w/rflx Micro + Cult 3 Months R30.0 - Dysuria Medications: New azithromycin take 500 mg today (day 1), then 250 mg for 4 days (days 2-5) PO 6 tabs 0RF Refilled oxycodone-acetaminophen 5-325 mg 1 tab PO Q6H PRN 112 tabs 0RF pain 28 days M50.30 - Other cervical disc degeneration, unspecified cervical region, M51.36 - Other intervertebral disc degeneration, lumbar region
--- OUTSIDE RECORDS SUMMARY | 2024-12-06 10:23 | XMS_ITS | Clinical Summary ---
Author Organization [facility] Address [address] [place] [address] Phone Care Team Providers Care Assistant Professor Of Marine Biology Name Role Phone Clifton Ray MD Primary Care Provider + [phone] Allergies No known active allergies Medications No [...] Insurance MEDICARE MEDICA[place] - [place] Care Teams Assistant Professor Of Marine Biology Relationship Specialty Start Date End Date Clifton Ray MD PCP - General Internal Medicine 03/31/24
== END 2024-12-06 10:29 | disposition home or self-care (01) ==
LOC: HO.HMCH 09:41
PROVIDERS: PCP Internal Medicine; Visit Provider Internal Medicine
DX: E78.2 Mixed hyperlipidemia (principal); R73.01 Impaired fasting glucose; R03.0 Elevated blood-pressure reading, without diagnosis of hypertension; R79.89 Other specified abnormal findings of blood chemistry; M51.360 Other intervertebral disc degeneration, lumbar region with discogenic back pain only; M50.30 Other cervical disc degeneration, unspecified cervical region; M17.0 Bilateral primary osteoarthritis of knee; R10.30 Lower abdominal pain, unspecified; K42.9 Umbilical hernia without obstruction or gangrene; K21.9 Gastro-esophageal reflux disease without esophagitis; J30.1 Allergic rhinitis due to pollen; E55.9 Vitamin D deficiency, unspecified

== ENCOUNTER → 2024-12-06 09:41 | Outpatient (BNVA) | payer MEDICARE, MEDICAID, SELFPAY | PROVIDERS: PCP Internal Medicine; Visit Provider Internal Medicine | DX: E78.2 Mixed hyperlipidemia (principal); R73.01 Impaired fasting glucose; R03.0 Elevated blood-pressure reading, without diagnosis of hypertension; R79.89 Other specified abnormal findings of blood chemistry; M51.360 Other intervertebral disc degeneration, lumbar region with discogenic back pain only; M50.30 Other cervical disc degeneration, unspecified cervical region; M17.0 Bilateral primary osteoarthritis of knee; R10.30 Lower abdominal pain, unspecified; K42.9 Umbilical hernia without obstruction or gangrene; K21.9 Gastro-esophageal reflux disease without esophagitis; J30.1 Allergic rhinitis due to pollen; E55.9 Vitamin D deficiency, unspecified; R35.0 Frequency of micturition; I83.813 Varicose veins of bilateral lower extremities with pain; E66.9 Obesity, unspecified; Z68.36 Body mass index [BMI] 36.0-36.9, adult; Z71.3 Dietary counseling and surveillance; Z87.891 Personal history of nicotine dependence | CPT/HCPCS: 96127; 99212 ==

== ENCOUNTER 2025-02-16 09:00 | Outpatient (REF) | payer MEDICARE, MEDICAID, SELFPAY ==
--- NOTE | ~2025-02-16 | XR_ITS ---
EXAMINATION: XR CHEST CLINICAL INFORMATION: J98.8 - Other specified respiratory disorders COMPARISON: Chest x-ray 12/05/2016 TECHNIQUE: 2 views of the chest were obtained. FINDINGS: No significant abnormality is noted involving the heart, lungs, mediastinum, bony thorax or soft tissues. XR/XR chest 2V IMPRESSION: Unremarkable chest examination. Electronically signed by: Martínez Hansen MD 02/18/2025 07:01 AM EDT
--- OUTSIDE RECORDS SUMMARY | 2025-02-16 09:05 | XMS_ITS | Clinical Summary ---
Author Organization [facility] Address [address] [place] [address] Phone Care Team Providers Care Cement Car Dumper Name Role Phone Clifton Ray MD Primary Care Provider + [phone] Allergies No known active allergies Medications No [...] Health Maintenance Due Date Last Done Comments Colorectal Cancer Screening: Colonoscopy 1955 DTaP,Tdap,and Td Vaccines (1 - Tdap) 09/30/1975 Pneumococcal Vaccine: 50+ Ye ars (1 of 1 - PCV) 2006 Zoster Vaccines (1 of 2) 2006 Abdominal Aortic Aneurysm (A AA) Screen 03/31/2024 Cholesterol Screening (Lipid Panel) 03/31/2024 Falls Risk Assessment 03/31/2024 Hepatitis C Screening 03/31/2024 Medicare Annual Wellness Visit 03/31/2024 Social Influencers of Health Screening 03/31/2024 Depression Screening 04/25/2024 COVID-19 Vaccine (1 - 2023-2 5 season) 2024 Influenza Vaccine (#1) 2024 RSV Immunization Adult [...] Insurance MEDICARE [place] - [place] Care Teams Cement Car Dumper Relationship Specialty Start Date End Date Clifton Ray MD PCP - General Internal Medicine 03/31/24
--- OUTSIDE RECORDS SUMMARY | 2025-02-16 09:07 | XMS_ITS | Patient Health Record ---
Author Organization [facility] Address [address] [place] [id number] Care Team Providers Care Welcome Wagon Host/Hostess Name Role Phone Cory ROMERO, [place] Primary Care Provider Wally Siegel Unavailable [phone] Allergies No Known Allergies Reason For Referral No Information Medications Medication SIG (Take, Route, Frequency, Duration) Notes Start Date End Date Status Niaspan 500 MG 1 tablet at bedtime Orally Once a day; Duration: 30 day(s) Active Gabapentin 300 MG 1 capsule Orally thr ee times a day Active CeleBREX 200 MG 1 capsule with food Orally Once a day Not-Taking Omeprazole 20 MG 1 tablet Orally Once a day Not-Taking Nystatin 870222 UNIT/GM 1 application to affected area Externally Twice a day Not-Taking Simvastatin 20 MG 1 tablet in the even ing Orally Once a day Active oxyCODONE-Acetaminophen 5-325 MG 1 tablet as needed Orally every 6 hrs Active Vitamin D3 25 MCG (1000 UT) 1 tablet Orally Once a day; Duration: 30 day(s) Active Immunizations Vaccine Route Administration [...] Problem Status W/U Status Risk Notes Problem Rectal bleeding (60759197) Rectal bleeding (K62.5) Active confirmed Problem Screening for malignant neoplasm of colon (360997664) Encounter for screening for malignant neoplasm of colon (Z12.11) Active confirmed Problem Diverticular disease of colon (851266900) Diverticulosis of large intestine without perforation or abscess without bleeding (K57.30) Active confirmed Problem Preprocedural examination (009209694878158) Preprocedural examination (Z01.818) Active confirmed Problem Constipation (03816320) Constipation, unspecified constipation type (K59.00) Active confirmed Problem History of adenomatous polyp of colon (630434546) Hx of adenomatous colonic polyps (Z86.010) Active confirmed Plan Of Treatment Pending Test Test Name Order Date Pathology 06/10/2023 Future Test Test Name Order Date COLONOSCOPY 02/23/2012 COLONOSCOPY 01/16/2019 COLONOSCOPY 05/05/2023 Insurance Providers Payer Name Payer Address Payer Phone Subscriber Number Group Number Insured Name Patient Relationship to Insured Coverage Start Date Coverage End Date MEDICARE OF [place] [address] [place] [id number] [id number] AVA CARUSO Self - patient is the insured MEDICAID OF [facility] [address] [place] [address] [id number] AVA CARUSO Self - patient is the insured Medical (General) History Medical History History ICD Code Colonoscopy 10/14/2005 and i n 2001 with removal of tubular adenomas; colonoscopy in 02/2012 with only a hyperplastic polyp Chronic GERD-neg. EGD in 2001, neg Hpylo ri Diverticulosis Internal hemorrhoids DVT Disc disease in back-no surgery Denies TN,DM,CVA,Lung disease,renal dise ase Hyperlipidemia Chronic neck and [...]
== END 2025-02-16 09:01 | disposition home or self-care (01) ==
LOC: HO.XRAY 09:00
PROVIDERS: PCP Internal Medicine; Visit Provider Internal Medicine
DX: J98.8 Other specified respiratory disorders (principal)
CPT/HCPCS: 71046

== ENCOUNTER → 2025-02-16 09:08 | Outpatient (BNV) | payer MEDICARE, MEDICAID, SELFPAY | PROVIDERS: PCP Internal Medicine; Visit Provider Radiology Diagnostic Radiology | DX: J98.8 Other specified respiratory disorders (principal) | CPT/HCPCS: 71046 ==

== ENCOUNTER 2025-04-06 08:28 | Outpatient (REF) | payer MEDICARE, MEDICAID, SELFPAY ==
--- OUTSIDE RECORDS SUMMARY | 2025-04-06 08:31 | XMS_ITS | Clinical Summary ---
Author Organization [facility] Address [address] [place] [address] Phone Care Team Providers Care Boot Liner Maker Name Role Phone Clifton Ray MD Primary Care Provider + [phone] Allergies No known active allergies Medications No [...] on file Sexual Orientation Not on file Last Filed Vital Signs Vital Sign Reading [...] Depression Screening 04/25/2024 COVID-19 Vaccine (1 - 2024-2 6 season) 2024 Influenza Vaccine (#1) 2024 RSV [...] Insurance MEDICARE [place] - [place] Care Teams Boot Liner Maker Relationship Specialty Start Date End Date Clifton Ray MD PCP - General Internal Medicine 03/31/24
[2025-04-06 09:05] LABS: MANUAL DIFF FLAG NO
[2025-04-06 10:21] LABS: Hematocrit 47.0 % (42.0-52.0); Hemoglobin 15.0 g/dl (14.0-18.0); Imm Gran Abs Auto 0.02 X10*3/uL (0.00-0.03); Imm Gran Pct Auto 0.4 % (0.0-0.4); Lymphocytes Absolute Auto 2.0 X10*3/uL (1.2-4.9); Mean Corpuscular HGB Conc 31.9 g/dl (31.0-36.0); Mean Corpuscular Hemoglobin 30.3 pg (27.0-33.0); Mean Corpuscular Volume 94.9 fL (80.0-98.0); NRBC Abs Auto 0.000 X10*3/uL (0.0-0.012); NRBC Pct Auto 0.0 /100WBC (0.0-0.2); Platelet Count 163 X10*3/uL (160-400); Red Blood Count 4.95 X10*6/uL (4.60-5.80); White Blood Count 5.4 X10*3/uL (4.8-10.8)
[2025-04-06 10:53] LABS: Alanine Aminotransferase 31 U/L (0-40); Albumin Level 4.2 g/dL (3.5-5.0); Alkaline Phosphatase 64 U/L (39-117); Anion Gap 10 (12-20); Aspartate Amino Transferase 42 U/L (5-37); Blood Urea Nitrogen 8 mg/dL (9-16); Calcium 9.2 mg/dL (8.4-10.2); Carbon Dioxide 32 mmol/L (22-29); Chloride 105 mmol/L (96-108); Cholesterol 108 mg/dL (<200); Estimated Glomerular Filt Rate > 60; HDL Cholesterol 30 mg/dL (>40); Potassium 4.6 mmol/L (3.3-5.1); Sodium 142 mmol/L (135-145); Total Protein 7.5 g/dL (6.5-8.0); Triglycerides 102 mg/dL (<150)
[2025-04-06 11:23] LABS: Appearance Urine Clear; Glucose Urine UA Negative (Negative); PH 5.5 (5.0-9.0); Specific Gravity - Urine 1.010 (1.005-1.025)
== END 2025-04-06 08:29 | disposition home or self-care (01) ==
LOC: HO.LAB 08:28
PROVIDERS: PCP Internal Medicine; Visit Provider Internal Medicine
DX: R73.01 Impaired fasting glucose (principal); E78.00 Pure hypercholesterolemia, unspecified; E55.9 Vitamin D deficiency, unspecified; D64.9 Anemia, unspecified; R30.0 Dysuria
CPT/HCPCS: 36415; 80053; 80061; 81003; 82306; 83036; 84443; 85025

== ENCOUNTER 2025-04-11 10:31 | Outpatient (AMB) | payer MEDICARE, MEDICAID, SELFPAY ==
--- NOTE | 2025-04-11 11:02 | A.OFFPC_ITS ---
Vital Signs 04/11/25 11:04 Height 5 ft 5.8 in Weight 226 lb BMI 36.7 BP 140/66 H Blood Pressure Location Lt brachial Position Sitting Respiration 18 Pulse 66 Pulse Source Pulse Oximeter Temp 97.8 F Temp Source Temporal Artery Scan Pulse Oximetry (%) 92 Oxygen Delivery Method Room Air Intake Visit Reasons: lumbar DDD, hyperlipidemia, IFG, elevated LFTs, GE Supervisor Blueprinting And Photocopy Required: No Accompanied by: Self / Same As Patient Allergies No Known Allergies Allergy (Verified 04/11/25 11:28) Medication List - Last Reconciled 04/11/25 by Clifton Ray MD cholecalciferol (vitamin D3) 25 mcg PO DAILY gabapentin 300 mg PO TID [LIGHTWEIGHT ELECTRIC MOTORIZED SCOOTER As directed] loratadine 10 mg PO DAILY PRN 90 days niacin 500 mg PO BEDTIME oxycodone-acetaminophen 5-325 mg 1 tab PO Q6H PRN 28 days simvastatin 20 mg PO BEDTIME Tobacco use date assessed: 12/06/24 Fall risk assessment: No Falls in past year Last assessed Fall Risk: 04/11/25 Dental Screening Dental Screen Date: 12/06/24 [facility] Medical History Varicose veins of bilateral lower extremities with pain Hx of rotator cuff tear Back pain Hyperlipidemia Hx of degenerative disc disease DVT (deep venous thrombosis) Internal hemorrhoid Diverticulosis Constipation Urinary frequency Obesity (BMI 30-39.9) GERD without esophagitis Vitamin D deficiency Degenerative arthritis of knee, bilateral Degenerative disc disease, cervical Lumbar degenerative disc disease Impaired fasting glucose Mixed hyperlipidemia Surgical History Hx of excision of mass Hx of varicose vein stripping Hx of umbilical hernia repair Hx of foot surgery History of ankle surgery History of esophagogastroduodenoscopy (EGD) History of colonoscopy History of knee replacement procedure of right knee History of knee replacement procedure of left knee Family History Father Cancer Mother Diabetes Social History Housing: House Alcohol intake: never Patient Tobacco Use Status: Former Tobacco user e-Cigarette/Vaping Use: Never Used Second Hand Smoke Exposure: Yes service: No Current occupational status: disabled Cognitive needs: Yes (cane) Hearing needs: No Vision needs: Yes Questionnaire Thrive Questionnaire Date Thrive assessed: 12/06/24 What is your living situation today?: I have a steady place to live Within the past 12 months, did the food you bought not last and you didn't have the money to get more?: Never true Within the past 12 months, did you worry whether your food would run out before you got money to buy more?: Never true Do you have trouble paying for medicines?: No Do you have trouble getting transportation to medical appointments?: No Do you have trouble paying your heating and electricity bill?: No Do you have trouble taking care of your child, family member or friend?: No Do you have trouble with day-to-day activities such as bathing, preparing meals, shopping, managing finances, etc.?: No Are you currently unemployed and looking for a job?: No Are you interested in more education?: No Please select the resources that you would like help with: None Currently or been in a relationship where the following occur: No concerns reported THRIVE Score: 0 PHYLLIS-7 AMB Questionnaire PHYLLIS-7 Date PHYLLIS - 7 assessed: 12/06/24 Source: Developed by Drs. Wally Payan, Adrianne Emmanuel, Kian Villavicencio and colleagues, with an educational rolly from [employer] Physical exam (Primary Care) Vital Signs: Last Vital Signs Temp 97.8 F 04/11/25 11:04 Pulse 66 04/11/25 11:04 Resp 18 04/11/25 11:04 BP 140/66 H 04/11/25 11:04 Pulse Ox 92 04/11/25 11:04 Oxygen Delivery Method Room Air 04/11/25 11:04 BMI result Body Mass Index 36.7 Tobacco/Smoking Status: Tobacco use Status Tobacco use date assessed 12/06/24 04/11/25 11:09 Patient Tobacco Use Status Former Tobacco user 04/11/25 11:09 e-Cigarette/Vaping Use Never Used 04/11/25 11:09 Thrive Assessment: Date of Thrive Assessment Date Thrive assessed 12/06/24 04/11/25 11:09 Currently or been in a relationship where the following occur: No concerns reported Office Procedures Flu Questionnaire Does the patient have a severe egg allergy?: No Does the patient have severe life threatening allergies?: No Does the patient have a fever or illness today?: No Has the patient ever had Guillain-Novinger Syndrome?: No Has the patient ever had any past reaction to a flu shot?: No Immunizations Fluarix [id number] (PF) 45 mcg (15 mcg x 3)/0.5 mL IM syringe Performing Provider: Clifton Ray MD [place] [facility] [facility] Administered by: Jeannie Hernández LPN on 04/11/25 11:54 Dose Route Admin Location Dispensed Lot Number Expiration Date [place] Cooperative Manager 0.5 mL IM Right Deltoid 0.5 mL [id number] 10/22/25 33824-279-06 [email or web address] VIS Given Date VIS Provided VIS Publication Date 04/11/25 Single Vaccine 24 Eligibility Eligibility Date Funding Source Not VFC Eligible 04/11/25 Private pneumoc 20-clifford conj-dip cr(PF) 0.5 mL IM syringe Performing Provider: Clifton Ray MD [place] [facility] [facility] Administered by: Jeannie Hernández LPN on 04/11/25 11:54 Dose Route Admin Location Dispensed Lot Number Expiration Date [facility] Cooperative Manager 0.5 mL IM Left Deltoid 0.5 mL [id number] 01/22/26 8122-2435-76 [employer] Total Dispensed Waste 0.5 mL 0 % VIS Given Date VIS Provided VIS Publication Date 04/11/25 Single Vaccine 24 Eligibility Eligibility Date Funding Source Not VFC Eligible 04/11/25 Private Results Reviewed Results Reviewed: Laboratory Tests 04/06/25 04/06/25 08:59 09:03 WBC 5.4 Hgb 15.0 Hct 47.0 Plt Count 163 Sodium 142 Potassium 4.6 Creatinine 0.82 Estimated GFR > 60 Fasting Glucose 92 Hemoglobin A1c % 5.7 Calcium 9.2 AST 42 H ALT 31 Triglycerides 102 Cholesterol 108 LDL Cholesterol, Calc 58 HDL Cholesterol 30 L 25-OH Vitamin D Total 36.0 TSH 1.25 Ur Specific [place] 1.010 Urine Protein Negative Urine Glucose (UA) Negative Urine Blood Negative Urine Nitrite Negative Ur Leukocyte Esterase Negative Coding Level of Care Code Est Pt Level 4 (94601) Diagnoses Mixed hyperlipidemia E78.2 Impaired fasting glucose R73.01 Elevated blood pressure reading without diagnosis of hypertension R03.0 Elevated LFTs R79.89 Degeneration of intervertebral disc of lumbar region with discogenic back pain M51.360 Disc-related pain type: discogenic back pain only Degenerative disc disease, cervical M50.30 Osteoarthritis of both knees, unspecified osteoarthritis type M17.0 Osteoarthritis type: unspecified Deep inguinal pain R10.30 Umbilical hernia without obstruction and without gangrene K42.9 Obstruction and gangrene presence: without obstruction or gangrene GERD without esophagitis K21.9 Seasonal allergic rhinitis due to pollen J30.1 Allergic rhinitis trigger: pollen Allergic rhinitis seasonality: seasonal Vitamin D deficiency E55.9 Urinary frequency R35.0 Varicose veins of bilateral lower extremities with pain I83.813 Obesity (BMI 30-39.9) E66.9 Assessment & Plan Assessment & Plan (1) Mixed hyperlipidemia: Code(s): E78.2 - Mixed hyperlipidemia Category: Medical Plan: Results of his labs done last week reviewed and discussed with patient Reinforced low cholesterol diet Continue Simvastatin 20 mg QD and Niaspan ER 500 mg QHS Will recheck his labs and fasting lipids in 3 months for follow up (2) Impaired fasting glucose: Code(s): R73.01 - Impaired fasting glucose Category: Medical Plan: His HgbA1c was at 5.9% on his recent labs; it used to be normal at 5.6%, 5.4% and 5.7% when previously checked His FBS remains normal at 99 mg/dl on his recent labs Reinforced low calorie diet/exercise as tolerated (3) Elevated blood pressure reading without diagnosis of hypertension: Code(s): R03.0 - Elevated blood-pressure reading, without diagnosis of hypertension Category: Medical Plan: His blood pressure reading today is acceptable and is close to goal Reinforced low sodium diet Patient is reminded to continue monitoring his BP regularly (4) Elevated LFTs: Code(s): R79.89 - Other specified abnormal findings of blood chemistry Category: Medical Plan: Both of his LFTs are slightly higher than previous on his recent labs Patient is reminded again to avoid taking too much OTC Tylenol or Acetaminophen and to completely avoid drinking any alcohol Will continue to monitor his LFTs regularly and recheck his LFTs in 3 months for follow up (5) Lumbar degenerative disc disease: Comment: Repeat lumbar spine MRI done on 11/03/2018 revealed (+) mild to moderate multile neal chronic spondylosis of the lumbar spine without associated marked central or foraminal stenosis or evidence of direct nerve root impingement Code(s): M51.36 - Other intervertebral disc degeneration, lumbar region Category: Medical Qualifiers: Disc-related pain type: discogenic back pain only Qualified Code(s): M51.360 - Other intervertebral disc degeneration, lumbar region with discogenic back pain only Plan: Reinforced activity and weight-lifting restrictions Continue Gabapentin 300 mg TID and Cyclobenzaprine 10 mg TID PRN (6) Degenerative disc disease, cervical: Comment: Cervical spine MRI in October 2016 revealed a slight increase in his cervical spine spondylosis (multilevel) Repeat cervical spine MRI on 11/03/2018 showed stable appearing multilevel cervical spondylosis; multilevel degenerative changes resulting in varying degrees of moderate to severe foraminal stenosis throughout the cervical spine but there is no severe central canal stenosis. There is bone marrow edema within the left C2 and C3 facets most likely degenerative or inflammatory Code(s): M50.30 - Other cervical disc degeneration, unspecified cervical region Category: Medical Plan: Continue Oxycodone-Acetaminophen 5-325 mg every 6 hours as needed - Rx refilled Follow up with neurosurgery (Dr. Keller) as scheduled - he was reportedly presented with the option of either repeat cortisone injection (which patient declined) or ACDF previously, especially if patient's neck symptoms get worse - patient is still undecided as to which option he wants to choose but is leaning towards injection Tx (7) Degenerative arthritis of knee, bilateral: Comment: S/P bilateral knee arthroplasty Code(s): M17.0 - Bilateral primary osteoarthritis of knee Category: Medical Qualifiers: Osteoarthritis type: unspecified Qualified Code(s): M17.0 - Bilateral primary osteoarthritis of knee Plan: S/P bilateral knee arthroplasty - states that he has been doing well since his surgery Follow up with orthopedic as scheduled (8) Deep inguinal pain: Comment: Diagnosed as bilateral Inguinal Disruption Code(s): R10.30 - Lower abdominal pain, unspecified Category: Medical Plan: He has been receiving trigger point injections over the inguinal areas from Dr. Steinberg over the past few months with little relief and was referred for pelvic girdle assessment He is now going to [facility] in [place] - to continue following up with urology as scheduled He was also seen by surgery at [facility] a few months ago and was advised that he recently sustained bilateral groin injury that is causing his recent increased pain and advised that he does NOT have any hernias (9) Umbilical hernia: Code(s): K42.9 - Umbilical hernia without obstruction or gangrene Category: Medical Qualifiers: Obstruction and gangrene presence: without obstruction or gangrene Qualified Code(s): K42.9 - Umbilical hernia without obstruction or gangrene Plan: He has been seen by HOSEA [place] of [facility] for this and was recommended for corrective surgery on an elective basis - he was advised to just call them to schedule this when he is ready to have surgery done Follow up with [facility] as scheduled (10) GERD without esophagitis: Code(s): K21.9 - Gastro-esophageal reflux disease without esophagitis Category: Medical Plan: Dietary restrictions reinforced Continue Omeprazole 20 mg QD (11) Allergic rhinitis: Code(s): J30.9 - Allergic rhinitis, unspecified Category: Medical Qualifiers: Allergic rhinitis trigger: pollen Allergic rhinitis seasonality: seasonal Qualified Code(s): J30.1 - Allergic rhinitis due to pollen Plan: Continue Loratadine 10 mg QD PRN (12) Vitamin D deficiency: Code(s): E55.9 - Vitamin D deficiency, unspecified Category: Medical Plan: Continue Vitamin D3 1000 units QD (13) Urinary frequency: Code(s): R35.0 - Frequency of micturition Category: Medical Plan: This is likely related to BPH Follow up with urology as scheduled (14) Varicose veins of bilateral lower extremities with pain: Code(s): I83.813 - Varicose veins of bilateral lower extremities with pain Category: Medical Plan: States that he had laser ablation done a couple of months ago with (+) relief/improvement of his symptoms Follow up with [facility] as scheduled for continuing management of his varicose veins (15) Obesity (BMI 30-39.9): Code(s): E66.9 - Obesity, unspecified Category: Medical Plan: Reinforced diet/exercise as tolerated/lose weight Plan Follow up in 3 months Orders: Orders PFT pulmonary function test Today J44.9 - Chronic obstructive pulmonary disease, unspecified Comprehensive [place]. Panel Fast 3 Months E78.00 - Pure hypercholesterolemia, unspecified Lipid Panel 3 Months E78.00 - Pure hypercholesterolemia, unspecified Pneumococcal 20 Immunization Today Z23 - Encounter for immunization Influenza [id number] Immunization Today Z23 - Encounter for immunization Referrals Thoracic/General Surgery Referral Z12.2 - Encounter for screening for malignant neoplasm of respiratory organs Medications: New skglzlrlagk-dsarefbfn-bgnyijtl 100-62.5-25 mcg (Trelegy Ellipta) 1 inh inhalation DAILY 28 ea 3RF 28 days
[2025-04-11 11:04] VITALS: BP 140/66; PULSE 66; RESP 18; TEMP 36.6; O2SAT 92; BMI 36.7
--- OUTSIDE RECORDS SUMMARY | 2025-04-11 13:16 | XMS_ITS | Clinical Summary ---
Author Organization [facility] Address [address] [place] [address] Phone Care Team Providers Care Waiter/Waitress Buffet Name Role Phone Clifton Ray MD Primary Care Provider + [phone] Allergies No known active allergies Medications No [...] Insurance MEDICARE [place]ICA[place] - [place] Care Teams Waiter/Waitress Buffet Relationship Specialty Start Date End Date Clifton Ray MD PCP - General Internal Medicine 03/31/24
--- OUTSIDE RECORDS SUMMARY | 2025-04-11 13:16 | XMS_ITS | Patient Health Record ---
Author Organization [facility] Address [address] [place] [id number] Care Team Providers Care Cotton Factor Name Role Phone Cory ROMERO, [place] Primary Care Provider Wally Siegel Unavailable [phone] Allergies No Known Allergies Reason For Referral No Information Medications Medication SIG (Take, Route, Frequency, Duration) Notes Start Date End Date Status Niaspan 500 MG Tablet Extended Release 1 tablet at bedtime Orally Once a day; Duration: 30 day(s) Active Gabapentin 300 MG Capsule 1 capsule Orally three times a day Active CeleBREX 200 MG Capsule 1 capsule with food Orally Once a day Not-Taking/PRN Omeprazole 20 MG Capsule Delayed Release 1 tablet Orally Once a day Not-Taking/PRN Nystatin 609423 UNIT/GM Ointment 1 application to affected area Externally Twice a day Not-Takin g/PRN Simvastatin 20 MG Tablet 1 tablet in the evening Orally Once a day Active oxyCODONE-Acetaminophe n 5-325 MG Tablet 1 tablet as needed Orally every 6 hrs Active Vitamin D3 25 MCG (1000 UT) Tablet 1 tablet Orally Once a day; Duration: 30 day(s) Active Immunizations Vaccine Route Administration Date Status Comme nts Influenza Unknown 12/24/2018 Administered Social History Tobacco Use: Social History Observation Description Date Details (start date - stop date) Former Smoker NA - NA Social History Tobacco Use: Social Info Question Answer Notes Tobacco Use/Smoking Patient is a former smoker How long has it been since you last smoked? > 10 years Additional Details Category Social Info Options Details Miscellaneous: Marital status: Occupation: Retired Section Notes: Smoker; no alcohol Smoker; no alcohol Smoker; no alcohol Problems Problem Type SNOMED Code ICD Code Onset Dates Problem Status W/U Status Risk Notes Problem Rectal bleeding (11600625) Rectal bleeding (K62.5) Active confirmed Problem Screening for malignant neoplasm of colon (326006427) Encounter for screening for malignant neoplasm of colon (Z12.11) Active confirmed Problem Diverticular disease of colon (685394079) Diverticulosis of large intestine without perforation or abscess without bleeding (K57.30) Active confirmed Problem Preprocedural examination (786323866584990) Preprocedural examination (Z01.818) Active confirmed Problem Constipation (57341059) Constipation, unspecified constipation type (K59.00) Active confirmed Problem History of adenomatous polyp of colon (347181810) Hx of adenomatous colonic polyps (Z86.010) Active confirmed Plan Of Treatment Pending Test Test Name Order Date Pathology 06/10/2023 Future Test Test Name Order Date COLONOSCOPY 02/23/2012 COLONOSCOPY 01/16/2019 COLONOSCOPY 05/05/2023 Insurance Providers Payer Name Payer Address Payer Phone Subscriber Number Group Number Insured Name Patient Relationship to Insured Coverage Start Date Coverage End Date MEDICARE OF [place] [address] [place] [address] [id number] AVA CARUSO Self - patient is the insured MEDICAID OF [facility] [address] [place] [address] [id number] AVA CARUSO Self - patient is the insured Medical (General) History Medical History History ICD Code Colonoscopy 10/14/2005 and i n 2001 with removal of tubular adenomas; colonoscopy in 02/2012 with only a hyperplastic polyp Chronic GERD-neg. EGD in 2001, neg Hpylo ri Diverticulosis Internal hemorrhoids DVT Disc disease in back-no surgery Denies [place],DM,CVA,Lung disease,renal dise ase Hyperlipidemia Chronic neck and [...]
== END 2025-04-11 11:49 | disposition home or self-care (01) ==
LOC: HO.HMCH 10:32
PROVIDERS: PCP Internal Medicine; Visit Provider Internal Medicine
DX: Z23 Encounter for immunization (principal)

== ENCOUNTER → 2025-04-11 10:31 | Outpatient (BNVA) | payer MEDICARE, MEDICAID, SELFPAY | PROVIDERS: PCP Internal Medicine; Visit Provider Internal Medicine | DX: J44.1 Chronic obstructive pulmonary disease with (acute) exacerbation (principal); E78.2 Mixed hyperlipidemia; R73.01 Impaired fasting glucose; R03.0 Elevated blood-pressure reading, without diagnosis of hypertension; M51.360 Other intervertebral disc degeneration, lumbar region with discogenic back pain only; E55.9 Vitamin D deficiency, unspecified; I83.813 Varicose veins of bilateral lower extremities with pain; E66.9 Obesity, unspecified; J30.1 Allergic rhinitis due to pollen; K21.9 Gastro-esophageal reflux disease without esophagitis; K42.9 Umbilical hernia without obstruction or gangrene; M17.0 Bilateral primary osteoarthritis of knee; R10.30 Lower abdominal pain, unspecified; Z23 Encounter for immunization | CPT/HCPCS: 90471; 90656; 90677; 99212 ==

== ENCOUNTER 2025-04-19 12:55 | Outpatient (REF) | payer MEDICARE, MEDICAID, SELFPAY ==
--- OUTSIDE RECORDS SUMMARY | 2025-04-19 12:57 | XMS_ITS | Clinical Summary ---
Author Organization [facility] Address [address] [place] [address] Phone Care Team Providers Care Racecourse Barrier Attendant Name Role Phone Clifton Ray MD Primary Care Provider + [phone] Allergies No known active allergies Medications No [...] Insurance MEDICARE [place] - [place] Care Teams Racecourse Barrier Attendant Relationship Specialty Start Date End Date Clifton Ray MD PCP - General Internal Medicine 03/31/24
--- OUTSIDE RECORDS SUMMARY | 2025-04-19 12:57 | XMS_ITS | Patient Health Record ---
Author Organization [facility] Address [address] [place] [address] Care Team Providers Care Ceramist Name Role Phone Cory ROMERO, [place] Primary Care Provider Wally Siegel Unavailable [phone] Allergies No Known Allergies Reason For Referral [...] tablet Orally Once a day Not-Taking/PRN Nystatin 580477 UNIT/GM Ointment 1 application to affected area [...] W/U Status Risk Notes Problem Rectal bleeding (43035292) Rectal bleeding (K62.5) Active confirmed Problem Screening for malignant neoplasm of colon (963277822) Encounter for screening for malignant neoplasm of colon (Z12.11) Active confirmed Problem Diverticular disease of colon (552092082) Diverticulosis of large intestine without perforation or abscess without bleeding (K57.30) Active confirmed Problem Preprocedural examination (016604228746048) Preprocedural examination (Z01.818) Active confirmed Problem Constipation (63565405) Constipation, unspecified constipation type (K59.00) Active confirmed Problem History of adenomatous polyp of colon (753843134) Hx of adenomatous colonic polyps (Z86.010) Active confirmed Plan Of Treatment Pending Test Test Name Order Date Pathology 06/10/2023 Future Test Test Name Order Date COLONOSCOPY 02/23/2012 COLONOSCOPY 01/16/2019 COLONOSCOPY 05/05/2023 Insurance Providers Payer Name Payer Address Payer Phone Subscriber Number Group Number Insured Name Patient Relationship to Insured Coverage Start Date Coverage End Date MEDICARE OF [place] [address] [place] [address] [id number] AVA CARUSO Self - patient is the insured MEDICAID OF [facility] [address] [place] [address] [id number] AVA CARUSO Self - patient is the insured Medical (General) History Medical History History ICD Code Colonoscopy 10/14/2005 and i n 2001 with removal of tubular adenomas; colonoscopy in 02/2012 with only a hyperplastic polyp Chronic GERD-neg. EGD in 2001, neg Hpylo ri Diverticulosis Internal hemorrhoids DVT Disc disease in back-no surgery Denies [place],DM,CVA,Lung disease,renal dise ase Hyperlipidemia Chronic neck and [...]
--- NOTE | 2025-04-19 13:04 | PFT_ITS ---
Indication: COPD Spirometry FEV1 to FVC 46%; FEV1 1.46 L; FVC 3.14 L. No significant response to bronchodilators noted Lung Volumes Total lung capacity 115% predicted; residual volume 174% predicted Diffusion Capacity DLCO 83% predicted Methacholine Challenge [] Flow Volume Loops Obstructive physiology MVV 60% predicted Comparisons None Interpretation There is an obstructive ventilatory defect consistent with moderate to severe COPD. No significant response to bronchodilators noted. Moderate decrease in the maximum voluntary ventilation secondary to likely deconditioning and also worsening dynamic inspiratory capacity. Diffusing capacity with a trend of hyperinflation and significant air trapping due to the COPD. Diffusing capacity is low normal. Clinical correlation warranted. MTDD
[2025-04-19 13:57] VITALS: PULSE 51
== END 2025-04-19 12:56 | disposition home or self-care (01) ==
LOC: HO.RESP 12:55
PROVIDERS: PCP Internal Medicine; Visit Provider Internal Medicine
DX: J44.9 Chronic obstructive pulmonary disease, unspecified (principal); Z87.891 Personal history of nicotine dependence
CPT/HCPCS: 94060; 94640; 94727; 94729

== ENCOUNTER → 2025-04-19 13:04 | Outpatient (BNV) | payer MEDICARE, MEDICAID, SELFPAY | PROVIDERS: PCP Internal Medicine; Visit Provider Hospitalist | DX: J44.9 Chronic obstructive pulmonary disease, unspecified (principal) | CPT/HCPCS: 94060; 94727; 94729 ==